=== PATIENT | male | born 1940 | race Caucasian/White ===

== ENCOUNTER → 2021-02-09 08:55 | Outpatient (BNVA) | payer MEDICARE, SELFPAY | PROVIDERS: PCP Nurse Practitioner Family; Visit Provider Nurse Practitioner Family | DX: I10 Essential (primary) hypertension (principal); M25.50 Pain in unspecified joint; G89.29 Other chronic pain; Z79.899 Other long term (current) drug therapy; E55.9 Vitamin D deficiency, unspecified; R07.9 Chest pain, unspecified; M25.512 Pain in left shoulder; M25.551 Pain in right hip; Z13.6 Encounter for screening for cardiovascular disorders; Z12.5 Encounter for screening for malignant neoplasm of prostate | CPT/HCPCS: 71046; 73030; 73502; 80053; 80061; 81003; 82306; 83036; 84443; 84550; 85025; 86038; 86431; G0103 ==

== ENCOUNTER → 2021-02-27 09:19 | Outpatient (BNVA) | payer MEDICARE, SELFPAY | PROVIDERS: PCP Nurse Practitioner Family; Visit Provider Nurse Practitioner Family | DX: I48.92 Unspecified atrial flutter (principal); F17.200 Nicotine dependence, unspecified, uncomplicated; J44.9 Chronic obstructive pulmonary disease, unspecified | CPT/HCPCS: 71046; 80053; 83735; 83880; 84145; 85025 ==

== ENCOUNTER → 2021-03-06 10:49 | Outpatient (BNVA) | payer MEDICARE, SELFPAY | PROVIDERS: PCP Nurse Practitioner Family; Visit Provider Nurse Practitioner Family | DX: I50.9 Heart failure, unspecified (principal); I10 Essential (primary) hypertension; K04.7 Periapical abscess without sinus; K08.89 Other specified disorders of teeth and supporting structures | CPT/HCPCS: 80053; 83880 ==

== ENCOUNTER → 2021-05-18 11:26 | Outpatient (BNVA) | payer MEDICARE, SELFPAY | PROVIDERS: PCP Nurse Practitioner Family; Visit Provider Nurse Practitioner Family | DX: C34.90 Malignant neoplasm of unspecified part of unspecified bronchus or lung (principal) | CPT/HCPCS: 80053 ==

== ENCOUNTER 2021-07-10 00:13 | Emergency (ER) | payer MEDICARE, SELFPAY ==
[2021-07-10 00:16] VITALS: BP 145/96; PULSE 82; RESP 20; O2SAT 93; BMI 25.8
--- NOTE | 2021-07-10 00:24 | XRR_ITS ---
PROCEDURE INFORMATION: Exam: XR Chest Exam date and time: 07/10/2021 12:24 AM Age: 81 years old Clinical indication: Pain; Chest pressure; Additional info: Cp TECHNIQUE: Imaging protocol: XR of the chest. Views: 1 view. COMPARISON: CR XR chest 2V* [id number] 02/27/2021 9:36 AM FINDINGS: Lungs: There is fullness seen within the right suprahilar and infrahilar regions appearing new compared with 02/27/2021. Pleural spaces: Pleural thickening or fluid is seen within the right hemithorax laterally as well as within the minor fissure. Heart/Mediastinum: Unremarkable. No cardiomegaly. Vasculature: A stent is present within the aortic arch and proximal descending thoracic aorta. Bones/joints: Unremarkable. XR/XR chest 1V portable [id number] IMPRESSION: 1. There is fullness seen within the suprahilar and infrahilar regions on the right appearing new compared with 02/27/2021. 2. Pleural thickening or fluid is seen tracking along the right lateral chest wall and within the minor fissure. Radiation Dose CTDIVOL = (mGy): DLP = (mGy-cm)
--- NOTE | 2021-07-10 00:25 | W.ED.CHESTPA ---
HPI - Chest Pain General: Chief Complaint: Chest Pain Stated Complaint: CP Time Seen by Provider: 07/10/21 00:15 Source: patient and EMS Mode of arrival: EMS Limitations: no limitations History of Present Illness: HPI narrative: States has been having chest pain for months states the pain has worsened over the last 2 days. States having a sharp pain today in his chest he did take a [place] before EMS arrival states he is currently pain-free. Had some dyspnea. He does have a history of lung cancer that is in remission. He denies any vomiting or diarrhea. Denies any worsening factors. Associated symptoms: Deny abdominal pain, dyspnea, fever(s), nausea or vomiting Review of Systems Const: Denies: fever(s), chills, body aches or change in appetite Eyes: Denies: blurry vision or eye discomfort ENMT: Denies: throat pain or dental pain Card: Reports: chest pain Resp: Denies: dyspnea GI: Denies: abdominal pain, nausea, vomiting or diarrhea : Denies: dysuria Musc: Denies: neck pain or back pain Skin/Breast: Denies: rash Neuro: Denies: headache(s) Psych: Denies: depression Mart/Lymph: Denies: easy bruising All/Imm: Denies: urticaria PFSH ED PFSH: Medical History Atrial flutter Back pain Chronic joint pain COPD (chronic obstructive pulmonary disease) Dental infection Hypertension Hypertension screen Left shoulder pain Lipoma of forearm Lung cancer Medication management Prostate cancer screening Right hip pain Right-sided chest pain RLL pneumonia Toothache Vitamin D deficiency Surgical History Previous back surgery Social History Smoking and tobacco status: current every day smoker Quit status (tobacco): considering quitting Alcohol intake: never Physical Exam Const: COMMON NORMALS: no acute distress, patient oriented x3 and healthy appearing HENMT: COMMON NORMALS: normocephalic and atraumatic HEAD & SCALP: normocephalic and atraumatic Eye: COMMON NORMALS: Equal, round and reactive pupils present and EOMs intact bilaterally PUPIL: Yes Equal, round and reactive pupils present Neck/C-Spine: COMMON NORMALS: full ROM and supple Chest: COMMONS NORMALS: normal inspection of the chest and normal palpation of entire chest wall Resp: COMMON NORMALS: normal respiratory effort, No retractions, No use of accessory muscles and clear to auscultation bilaterally AUSCULTATION: clear to auscultation bilaterally Cardio: COMMON NORMALS: regular rate, regular rhythm and No murmurs present (Cardio) RATE: regular rate RHYTHM: regular rhythm GI: COMMON NORMALS: Normal to inspection, nondistended, normoactive bowel sounds present, Soft to palpation, non-tender and no masses PALPATION: Yes Soft to palpation Extremity: COMMON NORMALS: normal to inspection and full ROM Neuro: COMMON NORMALS: patient oriented x3, moves all extremities and no focal motor deficits Psych: COMMON NORMALS: mental status grossly normal, Normal thought process present and cooperative THOUGHT PROCESS: Normal thought process present Skin: COMMON NORMALS: no rashes or lesions noted and no wounds GENERAL SKIN EXAM: no rashes or lesions noted Course Vital Signs: Vital signs: Vital Signs Pulse Rate 74 07/10/21 03:59 Respiratory Rate 12 07/10/21 03:59 Blood Pressure 135/83 07/10/21 03:59 Pulse Oximetry 97 07/10/21 03:59 MDM - Chest Pain MDM Narrative: Medical decision making narrative: Patient presents with chest pain. He was found to have anemia along with increasing lung mass. I did speak to patient and strongly recommended admission. He refused states that he does not want any further treatment would just like to go home. I did recommend rectal exam to make sure he does have a GI bleed which she refused as well as stating that he just wants to go home. He has medical decision made capacity patient did sign out AMA understands the risks he is return if he changes his mind. Lab Data: Labs: Lab Results 07/10/21 07/10/21 07/10/21 00:33 00:33 00:33 WBC 5.7 10^3/uL 10^3/ uL (4.0-10.0) RBC 3.27 10^6/uL L 10 ^6/uL (4.1-5.3) Hgb 7.8 g/dL L g/dL (11.7-16.6) Hct 26.0 % L % (42.0-52.0) MCV 79.5 fl L fl (80-94) MCH 23.9 pg L pg (28.0-34.0) MCHC 30.0 g/dL g/dL (30.0-36.0) RDW 18.9 % H % (12.1-15.1) Plt Count 231 10^3/cmm 10^3 /cmm (130-400) MPV 11.7 fL H fL (7.4-10.4) Neut % (Auto) 58.5 % % Lymph % (Auto) 18.0 % % [place] % (Auto) 17.7 % % Eos % (Auto) 4.6 % % Baso % (Auto) 0.7 % % Neut # (Auto) 3.31 10^3/uL 10^3 /uL (1.8-7.7) Lymph # (Auto) 1.0 10^3/uL 10^3/ uL (0.8-4.8) [place] # (Auto) 1.0 10^3/uL H 10^ 3/uL (0.2-0.9) Eos # (Auto) 0.3 10^3/uL 10^3/ uL (0.0-0.8) Baso # (Auto) 0.0 10^3/uL 10^3/ uL (0.0-0.1) Nucleated RBC % (a uto) 0.9 % % Nucleated RBCs # 0.1 /100WBC /100W BC PT 19.80 SECONDS H S ECONDS (12.1-14.9) INR 1.63 H (0.8-1.2) Sodium 142 mmol/L mmol/L (136-145) Potassium 3.9 mmol/L mmol/L (3.5-5.1) Chloride 99 mmol/L mmol/L (98-107) Carbon Dioxide 33 mmol/L H mmol/ L (22-29) Anion Gap 13.9 (5-19) BUN 38 mg/dL H mg/dL (8-23) Creatinine 1.1 mg/dL mg/dL (0.7-1.2) GFR Calculation Not Reportable Glucose 90 mg/dL mg/dL (65-115) Calculated Osmolal ity 303 mOsm/kg H mOs m/kg (285-295) Calcium 8.0 mg/dL L mg/dL (8.5-10.5) Total Bilirubin 0.8 mg/dL mg/dL (0.15-1.2) AST 55 U/L H U/L (0-40) ALT 42 U/L H U/L (0-41) Alkaline Phosphata se 166 IU/L H IU/L (40-130) Troponin T Baselin e Troponin T 120 Min [place] Troponin T Total Protein 6.8 g/dL g/dL (6.6-8.7) Albumin 3.1 g/dL L g/dL (3.5-5.2) Globulin 3.7 g/dL g/dL (1.3-4.6) 07/10/21 07/10/21 00:33 02:34 WBC RBC Hgb Hct MCV MCH MCHC RDW Plt Count MPV Neut % (Auto) Lymph % (Auto) [place] % (Auto) Eos % (Auto) Baso % (Auto) Neut # (Auto) Lymph # (Auto) [place] # (Auto) Eos # (Auto) Baso # (Auto) Nucleated RBC % (a uto) Nucleated RBCs # PT INR Sodium Potassium Chloride Carbon Dioxide Anion Gap BUN Creatinine GFR Calculation Glucose Calculated Osmolal ity Calcium Total Bilirubin AST ALT Alkaline Phosphata se Troponin T Baselin e 54 ng/L H ng/L (0-15) Troponin T 120 Min [place] 52.41 ng/L H ng/L (0-15) Delta Troponin T -1.59 ABS# L ABS# (0-10) Total Protein Albumin Globulin EKG Data^: EKG 1: Attestation: I personally reviewed and interpreted this EKG as follows: EKG interpretation date: 07/10/21 EKG interpretation time: 00:19 Interpretation: atrial fluttter hr [address] elevationqrs 110 qtc 448 EKG 2: Attestation: I personally reviewed and interpreted this EKG as follows: EKG interpretation date: 07/10/21 EKG interpretation time: 02:31 Interpretation: atrial flutter hr [address] or t wave abnormalities qrs 97 qtc 428 Discharge Plan Discharge Patient Disposition: Left Against Medical Advice Clinical Impression: Lung cancer, Chest pain Condition: Stable Prescriptions: No Action albuterol sulfate 90 mcg/actuation HFA aerosol inhaler 2 puff inhalation Q6H PRNRF: 0 Eliquis 5 mg tablet 5 mg PO BID RF: 0 gabapentin 400 mg capsule 400 mg PO BID RF: 0 metoprolol succinate 200 mg capsule,sprinkle,ER 24hr 200 mg PO DAILY RF: 0 mirtazapine 15 mg tablet 15 mg PO DAILY RF: 0 Narcan 4 mg/actuation spray,non-aerosol 4 mg intranasal Q3M PRNRF: 0 oxycodone-acetaminophen 10-325 mg tablet 1 tab PO Q4H PRNRF: 0 potassium chloride 20 mEq/15 mL liquid 20 meq PO DAILY RF: 0 Breo Ellipta 100-25 mcg/dose blister with device inhalation RF: 0 betamethasone acet,sod phos 6 mg/mL suspension 6 mg IM ONCE Qty: 1 RF: 0 furosemide 40 mg tablet 40 mg PO BID 30 Days Qty: 60 RF: 0 potassium chloride [Klor-Con M20] 20 mEq tablet,ER particles/crystals 20 meq PO Q12H 30 Days Qty: 60 RF: 0 diltiazem HCl [Cardizem] 30 mg tablet 30 mg PO QID 30 Days Qty: 120 RF: 0 doxycycline hyclate 100 mg tablet 100 mg PO BID RF: 0 lisinopril 10 mg tablet 10 mg PO DAILY Qty: 30 RF: 0 tramadol 50 mg tablet 50 mg PO BID PRN (Reason: pain) 10 Days Qty: 20 RF: 0 Discharge Orders: Discharge ED (Routine); Ordered 07/10/21 Ordered By: Miranda Wilson Referrals: NEDRA Rivero, [employer] WORKER [Primary Care Provider] - Discharge Diet: Advance as tolerated Discharge Activity: Resume usual activity Patient Instructions: Chest Pain (ED) Coding Level of Care Code ED Furniture Associate for Chg Fwd Exam Comprehensive
[2021-07-10 00:52] LABS: Basophils % 0.7 %; Eosinophils # 0.3 10^3/uL (0.0-0.8); Eosinophils % 4.6 %; Hemoglobin 7.8 g/dL (11.7-16.6); Mean Corpuscular Hemoglobin 23.9 pg (28.0-34.0); Mean Corpuscular Volume 79.5 fl (80-94); Mean Platelet Volume 11.7 fL (7.4-10.4); Monocytes % 17.7 %; Neutrophils # 3.31 10^3/uL (1.8-7.7); Neutrophils % 58.5 %; Nucleated Red Blood Cells # 0.1 /100WBC; Nucleated Red Blood Cells % 0.9 %; Platelet Count 231 10^3/cmm (130-400); Red Blood Count 3.27 10^6/uL (4.1-5.3); Red Cell Distribution Width 18.9 % (12.1-15.1); White Blood Count 5.7 10^3/uL (4.0-10.0)
[2021-07-10 01:12] LABS: INR 1.63 (0.8-1.2)
[2021-07-10 01:17] LABS: Alanine Aminotransferase 42 U/L (0-41); Albumin Level 3.1 g/dL (3.5-5.2); Alkaline Phosphatase 166 IU/L (40-130); Anion Gap 13.9 (5-19); Blood Urea Nitrogen 38 mg/dL (8-23); Carbon Dioxide 33 mmol/L (22-29); Chloride 99 mmol/L (98-107); Creatinine Clr Calc Pharmacy 56.9579; Globulin 3.7 g/dL (1.3-4.6); Glucose 90 mg/dL (65-115); Osmolality Calculated 303 mOsm/kg (285-295); Potassium 3.9 mmol/L (3.5-5.1); Sodium 142 mmol/L (136-145); Total Bilirubin 0.8 mg/dL (0.15-1.2); Total Protein 6.8 g/dL (6.6-8.7); Troponin(5th) Baseline 54 ng/L (0-15)
[2021-07-10 01:18] LABS: Aspartate Amino Transferase 55 U/L (0-40)
--- NOTE | 2021-07-10 01:26 | CTR_ITS ---
PROCEDURE INFORMATION: Exam: CTA Chest With Contrast Exam date and time: 07/10/2021 1:26 AM Age: 81 years old Clinical indication: Chest wall pain; Additional info: Cp TECHNIQUE: Imaging protocol: Computed tomographic angiography of the chest with contrast. 3D rendering (Not supervised by radiologist): MIP and/or 3D reconstructed images were created by the technologist. Radiation optimization: All CT scans at this facility use at least one of these dose optimization techniques: automated exposure control; mA and/or kV adjustment per patient size (includes targeted exams where dose is matched to clinical indication); or iterative reconstruction. Contrast material: OMNI 350; Contrast volume: 95 ml; Contrast route: INTRAVENOUS (IV); COMPARISON: CT chest w con* [id number] 12/10/2018 10:49 AM RADIATION DOSE METRICS: Total DLP (mGy-cm): 598.13 FINDINGS: Pulmonary arteries: There is a filamentous hypoattenuation filling defect seen within the right lower lobe main pulmonary artery compatible with a nonocclusive pulmonary embolism. Aorta: A stent is present within the aortic arch and proximal descending thoracic aorta. 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 Veins: There is reflux of contrast into the inferior vena cava and right posterior hepatic vein. Lungs: There is an irregular spiculated appearing mass seen in the right lower lobe posteriorly measuring approximately 3.7 cm craniocaudal dimension by 3.7 cm AP dimension by 6.4 cm transverse dimension in the right lower lobe posteriorly, findings that appear more prominent today compared with 12/10/2018. Additionally, there is a somewhat spiculated right suprahilar soft tissue mass present surrounding the right upper lobe bronchovascular markings. This finding appears more prominent as well. There are increased septal markings seen in the lung bases bilaterally possibly representing pulmonary edema. Pleural spaces: There is a mildly loculated appearing right pleural effusion seen posteriorly and extending within the major fissure. Heart: Calcifications are seen in the coronary arteries. Lymph nodes: Unremarkable. No enlarged lymph nodes. Liver: There is a nodular contour of the liver compatible with cirrhosis. Intraperitoneal space: A small volume of ascites is seen. Bones/joints: See Aorta finding. Soft tissues: Unremarkable. CT/CT angio chest [id number] IMPRESSION: 1. Nonocclusive embolism seen within the right lower lobe pulmonary artery. 2. Enlarging spiculated right lower lobe pulmonary mass measuring 3.7 x 3.7 x 6.4 cm today. 3. Enlarging suprahilar mass surrounding the right upper lobe bronchovascular structures. 4. Loculated appearing right pleural effusion extending into the major fissure. 5. A stent is present within the aortic arch and proximal descending thoracic aorta. 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 There is no evidence for dissection or extravasation. 6. There is mild reflux of contrast into the inferior vena cava and the posterior right hepatic vein and some increased septal markings are seen in the lower hemithoraces, findings that may represent pulmonary edema. Radiation Dose CTDIVOL = (mGy): DLP = 598.13 (mGy-cm)
[2021-07-10] MEDS: iohexol 350 mg/mL 100 mL Btl IV (01:53)
[2021-07-10 03:02] LABS: Troponin 5 2HR 52.41 ng/L (0-15)
[2021-07-10 03:06] LABS: Troponin 5 2HR Delta -1.59 ABS# (0-10)
--- NOTE | 2021-07-10 03:50 | PC.NURSE ---
this nurse spoke to pt about staying for treatment. pt states continuously hes cold, even though he is covered in 6 blankets, and he is ready to go home. this nurse called and spoke to pt brother anjali martínez who told me to call his son. his sons answered and she states he has dementia and he has refused to go to the hospital all week. I told her that no one has signed a PHI form and so I can't release any information but highly reccomend seeing his physician to discuss results by the end of the week.
[2021-07-10 03:59] VITALS: BP 135/83; PULSE 74; RESP 12; O2SAT 97
--- NOTE | 2021-07-10 06:24 | ECG_ITS ---
[facility] Test Date: 2021-07-10 Pat Name: Tyree Lemon Department: Room: Gender: Male Freight Caller: : [phone] Requested By: Miranda Wilson Order Number: [id number] Reading MD: JUAN PERALTA Measurements Intervals [place] Rate: 74 P: MA: QRS: 75 QRSD: 97 T: 195 QT: 400 QTc: 446 Interpretive Statements ATRIAL FLUTTER/TACHYCARDIA INDETERMINATE AXIS INCOMPLETE RIGHT BUNDLE BRANCH BLOCK [90+ ms QRS DURATION, TERMINAL R IN V1/V2, 40+ ms S IN I/aVL/V4/V5/V6] NONSPECIFIC T-WAVE ABNORMALITY No previous ECG available for comparison Electronically Signed On 07-10-2021 22:58:30 CDT by JUAN PERALTA [id number]
== END 2021-07-10 04:06 | disposition left against medical advice (07) ==
PROVIDERS: Emergency Provider Emergency Medicine; PCP Nurse Practitioner Family
DX: R07.9 Chest pain, unspecified (principal); C34.90 Malignant neoplasm of unspecified part of unspecified bronchus or lung; Z53.21 Procedure and treatment not carried out due to patient leaving prior to being seen by health care provider; Z79.01 Long term (current) use of anticoagulants; J44.9 Chronic obstructive pulmonary disease, unspecified; I10 Essential (primary) hypertension; F17.210 Nicotine dependence, cigarettes, uncomplicated
CPT/HCPCS: 71045; 71275; 80053; 84484; 85025; 85610; 93005; 99283; Q9967

== ENCOUNTER 2021-08-04 11:52 | Inpatient (IN) | payer MEDICARE, SELFPAY ==
[2021-08-04] VITALS (35 sets, daily range): BP systolic 72–168; BP diastolic 52–104; PULSE 0–90; RESP 15–35; TEMP 33.2–35.9; O2SAT 95–100; BMI 33.0; BMI 25.2
[2021-08-04] MEDS: dextrose 50% syringe 50 mL IVP (11:53)
--- NOTE | 2021-08-04 11:55 | PC.NURSE ---
Pt placed on external pacing at 72 MA capture with a rate of 70bpm.
--- NOTE | 2021-08-04 11:55 | PC.NURSE ---
pt placed on continuous spo2, nibp, and cm monitoring.
[2021-08-04] MEDS: vecuronium 10 mg SDV 20 MG IVP (12:07)
--- NOTE | 2021-08-04 12:10 | CTR_ITS ---
PROCEDURE INFORMATION: Exam: CT Head Without Contrast Exam date and time: 08/04/2021 12:10 PM Age: 81 years old Clinical indication: Coma or unconsciousness; Additional info: Unresponsive TECHNIQUE: Imaging protocol: Computed tomography of the head without contrast. Radiation optimization: All CT scans at this facility use at least one of these dose optimization techniques: automated exposure control; mA and/or kV adjustment per patient size (includes targeted exams where dose is matched to clinical indication); or iterative reconstruction. COMPARISON: MRI Cervical Spine w/o* [id number] 12/12/2015 2:38 PM RADIATION DOSE METRICS: Total DLP (mGy-cm): 991.27 FINDINGS: Brain: No hemorrhage. Mild diffuse cerebral atrophy and sequela of chronic small vessel ischemic disease. Focal encephalomalacia within the white matter of the right parietal lobe with corresponding ex vacuo dilation of the right lateral ventricle. No mass effect. Cerebral ventricles: No ventriculomegaly. Paranasal sinuses: Visualized sinuses are unremarkable. No fluid levels. Mastoid air cells: Visualized mastoid air cells are well aerated. Bones/joints: Unremarkable. No acute fracture. Soft tissues: Unremarkable. CT/CT head wo con* [id number] IMPRESSION: 1. No acute intracranial abnormality. 2. 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 Radiation Dose CTDIVOL = (mGy): DLP = 991.27 (mGy-cm)
--- NOTE | 2021-08-04 12:10 | CTR_ITS ---
PROCEDURE INFORMATION: Exam: CT Cervical Spine Without Contrast Exam date and time: 08/04/2021 12:10 PM Age: 81 years old Clinical indication: Other: Unresponsive TECHNIQUE: Imaging protocol: Computed tomography images of the cervical spine without contrast. Radiation optimization: All CT scans at this facility use at least one of these dose optimization techniques: automated exposure control; mA and/or kV adjustment per patient size (includes targeted exams where dose is matched to clinical indication); or iterative reconstruction. COMPARISON: MRI Cervical Spine w/o* [id number] 12/12/2015 2:38 PM RADIATION DOSE METRICS: Total DLP (mGy-cm): 710.85 FINDINGS: Bones/joints: No acute fracture. Normal alignment. Discs/Spinal canal/Neural foramina: No significant disc protrusion. No severe spinal canal stenosis. No significant neural foraminal narrowing. Lungs: Lung apices are normal. Soft tissues: Unremarkable. CT/CT cervical spin wo con* [id number] IMPRESSION: No acute findings. Radiation Dose CTDIVOL = (mGy): DLP = 710.85 (mGy-cm)
--- NOTE | 2021-08-04 12:10 | CTR_ITS ---
PROCEDURE INFORMATION: Exam: CTA Chest With Contrast Exam date and time: 08/04/2021 12:10 PM Age: 81 years old Clinical indication: Other: Found unresponsive; Prior surgery TECHNIQUE: Imaging protocol: Computed tomographic angiography of the chest with contrast. 3D rendering (Not supervised by radiologist): MIP and/or 3D reconstructed images were created by the technologist. Total images: 1210 Radiation optimization: All CT scans at this facility use at least one of these dose optimization techniques: automated exposure control; mA and/or kV adjustment per patient size (includes targeted exams where dose is matched to clinical indication); or iterative reconstruction. Contrast material: VISI; Contrast volume: 92 ml; Contrast route: INTRAVENOUS (IV); COMPARISON: CT angio chest [id number] 07/10/2021 1:51 AM RADIATION DOSE METRICS: Total DLP (mGy-cm): 7.89 FINDINGS: Tubes, catheters and devices: Endotracheal tube tip in satisfactory position above the sri. Nasogastric tube tip below the diaphragm the level of proximal gastric antrum. Pulmonary arteries: No visible evidence of pulmonary embolism/pulmonary arterial thrombus. Resolution of the pulmonary embolism of 07/10/2021. 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 Thoracic aortic stent again in place beginning at the mid aortic arch and extending into the distal thoracic aorta terminating at the T8 level. No change since 07/10/2021. Arteriosclerosis. Trachea: Small amount of retained mucus upper trachea just below the larynx. No associated airway obstruction. Lungs: Again note of a right suprahilar spiculated mass with concern for lung carcinoma. Segmental volume consolidated alveolar airspace disease right lower lobe which could reflect pneumonia and or atelectasis period and underlying lung carcinoma most certainly could be present. Volume loss left lower lobe with associated ground-glass interstitial lung disease and early consolidated alveolar airspace disease of suspected active pneumonitis/pneumonia. Evidence of COPD/chronic bronchitis. Again note of 2 right middle lobe pulmonary nodules 1 subpleural along the minor fissure measuring 8 mm and the 2nd subpleural lateral segment right middle lobe measuring 8 mm also. Pleural spaces: Scant right pleural effusion. Volume slightly decreased since study of 07/10/2021. No visible left pleural effusion of significant volume. Heart: Cardiomegaly. No visible pericardial effusion. Advanced 3 vessel coronary artery disease. Reflux of contrast into the inferior vena cava consistent or right-sided heart failure. Lymph nodes: Stable prominent mediastinal and hilar lymph nodes. Bones/joints: No visible active or acute osseous pathology. Osteopenia. Soft tissues: Unremarkable for age. Other findings: Increased quantum mottle artifact which degrades image quality and detail assessment. IMPRESSION: 1. No visible evidence of pulmonary embolism/pulmonary arterial thrombus. 2. Again note of a right suprahilar spiculated mass with concern for lung carcinoma. 3. Segmental volume consolidated alveolar airspace disease right lower lobe which could reflect pneumonia and or atelectasis period and underlying lung carcinoma most certainly could be present. 4. Volume loss left lower lobe with associated ground-glass interstitial lung disease and early consolidated alveolar airspace disease of suspected active pneumonitis/pneumonia. 5. Evidence of COPD/chronic bronchitis. 6. Again note of 2 right middle lobe pulmonary nodules. 7. Scant right pleural effusion. 8. Other nonurgent, nonemergent, chronic, and age related findings as detailed in text above. PROCEDURE INFORMATION: Exam: CT Abdomen And Pelvis With Contrast Exam date and time: 08/04/2021 12:10 PM Age: 81 years old Clinical indication: Other: Found unresponsive; Prior surgery TECHNIQUE: Imaging protocol: Computed tomography of the abdomen and pelvis with contrast. Radiation optimization: All CT scans at this facility use at least one of these dose optimization techniques: automated exposure control; mA and/or kV adjustment per patient size (includes targeted exams where dose is matched to clinical indication); or iterative reconstruction. Contrast material: VISI; Contrast volume: 92 ml; Contrast route: INTRAVENOUS (IV); COMPARISON: CT angio chest [id number] 07/10/2021 1:51 AM RADIATION DOSE METRICS: Total DLP (mGy-cm): 2046.89 FINDINGS: Tubes, catheters and devices: Right common femoral vein catheter. Nasogastric tube tip at the level of the proximal gastric antrum. Liver: Cirrhotic appearing liver. No visible hepatic mass or cystic structure. Gallbladder and bile ducts: Gallbladder is contracted. No visible cholelithiasis. Pancreas: Pancreas is unremarkable for age. No visible pancreatic ductal ectasia. Spleen: Spleen unremarkable. Adrenal glands: Adrenal glands unremarkable. Kidneys and ureters: No hydronephrosis or perinephric fluid. Small focus of nonobstructing calyceal nephrolithiasis inferior pole right kidney measuring 3 mm. Mildly atrophic right kidney. No visible nephrolithiasis left kidney. No grossly visible renal mass. Renal arteriosclerosis. Stomach and bowel: Evidence of moderate diffuse mucosal thickening of the colon consistent with either active inflammatory or infectious colitis. Diverticulosis coli without visible evidence for acute diverticulitis. Nonobstructive bowel pattern. No visible significant adynamic or reactive ileus. Appendix: The appendix is visualized and appears noninflamed. Intraperitoneal space: Small volume intraperitoneal ascites. No visible pneumoperitoneum. Vasculature: Mild fusiform aneurysmal dilatation of the infrarenal abdominal aorta measuring a maximum AP diameter 39 mm. No intimal flap or dissection. Moderately advanced arterial sclerotic disease. Tortuous abdominal aorta often seen in hypertensive cardiovascular disease. No aneurysmal dilatation of the iliac arteries. Extensive arterial sclerotic disease of the iliac arteries. Lymph nodes: Unremarkable. No visible enlarged lymph nodes. Urinary bladder: Davis catheter within a partially decompressed urinary bladder. Reproductive: Prostate hypertrophy. Bones/joints: No visible active or acute osseous pathology. Degenerative disease and degenerative disc disease the lumbosacral spine most severe L4/L5 with disc space height loss and ankylosis. Spondylosis deformans. Scoliosis. Soft tissues: Unremarkable. Other findings: Increased quantum mottle artifact which degrades image quality and detail assessment. CT/CT angio chest w abd pel w con IMPRESSION: 1. Evidence of moderate diffuse mucosal thickening of the colon consistent with either active inflammatory or infectious colitis. 2. Diverticulosis coli without visible evidence for acute diverticulitis. 3. Cirrhosis of the liver. 4. Small volume intraperitoneal ascites. 5. Other nonurgent, nonemergent, chronic, and age related findings as detailed in text above. COMMENTS: Consistent with the [employer]'s Incidental Findings Committee white paper (J Am Puma Radiol 2018): Any incidental renal lesion less than 1 cm or classified as too small to characterize, or any incidental cystic renal lesion characterized as simple-appearing, is likely benign. No follow-up imaging is recommended for these lesions per consensus recommendations based on imaging criteria. Radiation Dose CTDIVOL = (mGy): DLP = 2047.89~2047.89 (mGy-cm)
--- NOTE | 2021-08-04 12:11 | XRR_ITS ---
PROCEDURE INFORMATION: Exam: XR Chest Exam date and time: 08/04/2021 12:11 PM Age: 81 years old Clinical indication: Device placement; Ett placement (vent status) TECHNIQUE: Imaging protocol: XR of the chest. Views: 1 view. COMPARISON: CR (CHEST, ) 07/10/2021 1:08 AM FINDINGS: Tubes, catheters and devices: Termination of endotracheal tube 8.2 cm above the sri. Lungs: COPD, interstitial disease, and asymmetric bilateral airspace disease (right greater than left). Pleural spaces: Right pleural effusion. Heart/Mediastinum: Cardiomegaly. Vasculature: Aortic stent graft in the enlarged thoracic aorta. Bones/joints: Osteopenia. XR/XR chest 1V portable [id number] IMPRESSION: 1. COPD, interstitial disease, and asymmetric bilateral airspace disease (right greater than left). 2. Right pleural effusion. 3. Termination of endotracheal tube 8.2 cm above the sri. Radiation Dose CTDIVOL = (mGy): DLP = (mGy-cm)
--- NOTE | 2021-08-04 12:11 | ECG_ITS ---
[facility] Test Date: 2021-08-04 Pat Name: Tyree Lemon Department: Room: Gender: Male Shaker Operator: : 1940 Requested By: Lavelle Piña Order Number: [id number] Meagan MD: Brittaney Machuca M.D. Measurements Intervals [place] Rate: 52 P: 52 ME: 284 QRS: -60 QRSD: 126 T: 130 QT: 589 QTc: 550 Interpretive Statements Unspecified irregular rhythm LEFT AXIS DEVIATION [QRS AXIS < -30] MODERATE INTRAVENTRICULAR CONDUCTION DELAY [110+ ms QRS DURATION] NONSPECIFIC T-WAVE ABNORMALITY Baseline artifact CRITICAL TEST RESULT Compared to ECG 07/10/2021 02:31:46 Left-axis deviation now present Intraventricular conduction delay now present Atrial flutter no longer present T-wave abnormality still present Electronically Signed On 08-05-2021 13:18:32 TWISTER DOFFER by Brittaney Machuca M.D. [id number]
--- NOTE | 2021-08-04 12:15 | ED_ITS ---
HPI - Altered Mental Status General: Chief Complaint: Altered Mental Status Stated Complaint: RESP DISTRESS; HYPOGLYCEMIA Time Seen by Provider: 08/04/21 12:09 History of Present Illness: HPI narrative: 81-year-old male with history of a flutter on Eliquis presents due to altered mental status. EMS was called home due to patient being more confused past 24 hours. They found he had blood sugar 13. Dextrose provided. Repeat blood sugar was in the 60s. Patient however was noted by EMS to become increasingly bradycardic despite repeated dose of atropine. External pacing initiated. Remainder of history is limited due to patient's altered mental status. Review of Systems General: Reports: ROS unobtainable due to mental status PFS ED PFSH: Medical History Atrial flutter Back pain Chronic joint pain COPD (chronic obstructive pulmonary disease) Dental infection Hypertension Hypertension screen Left shoulder pain Lipoma of forearm Lung cancer Medication management Prostate cancer screening Right hip pain Right-sided chest pain RLL pneumonia Toothache Vitamin D deficiency Surgical History Previous back surgery Social History Smoking and tobacco status: current every day smoker Quit status (tobacco): considering quitting Alcohol intake: never Physical Exam Narrative: EXAM NARRATIVE: - GENERAL: Alert and oriented x 0. Being paced by EMS. Breathing spontaneously. - EYES: EOMI. Anicteric. - HENT: Atraumatic, no C-spine tenderness. Moist mucous membranes. No scleral icterus. No cervical lymphadenopathy. - LUNGS: Clear to auscultation bilaterally. No accessory muscle use. Equal lung sounds bilaterally. No respiratory distress. - CARDIOVASCULAR: Pacing in progress, regular rate and rhythm. No murmur. - ABDOMEN: Soft, non-tender and non-distended. Negative CVA tenderness bilaterally, no rebound or guarding, negative Bowman sign. No palpable masses. - EXTREMITIES: No edema. Non-tender. - SKIN: No rashes or lesions. Warm. - NEUROLOGIC: GCS of 10, no focal deficit the patient is severely confused - PSYCHIATRIC: Cooperative. Appropriate mood and affect. Procedures Intubation Time out performed: Yes sedative: Etomidate Mg Given: 20 paralytic: Vecuronium Mg Given: 20 Laryngoscope: fiber optic video scope ET Tube Size: 7.5 ET Tube Uncuffed: Yes Tube Secured Depth (cm): 23 Tube Secured Location: lips Tube Placement Confirmation: visualized tube passing through cords, equal breath sounds bilaterally and no breath sounds over epigastrium Patient Tolerated Procedure: well Intubation Complications: none Course Vital Signs: Vital signs: Vital Signs Temperature 91.8 F L 08/04/21 12:49 Pulse Rate 80 08/04/21 11:55 Respiratory Rate 16 08/04/21 12:21 Blood Pressure 72/52 08/04/21 11:55 Pulse Oximetry 96 08/04/21 11:55 MDM - Altered Mental Status MDM Narrative: Medical decision making narrative: 81-year-old male presented by EMS due to altered mental status. Initially had low blood sugar. However this improved with ministration of dextrose. He continues to be altered and has spontaneous respirations. Required emergent intubation due to failure to protect his airway. Following intubation oxygen saturation was in 90s. Patient was hypotensive despite 1500 cc fluids by EMS and Levophed drip was started. EKG reveals sinus bradycardia and arrhythmia. Troponin is elevated to 120 but there is also creatinine elevation 2.7. Discussed with cardiology, who at this time does not recommend starting heparin and recommends waiting for scan results first. CT scan of the head C-spine chest abdomen pelvis ordered. In addition there is hyperkalemia with potassium of 7. Calcium and insulin drip ordered. Nephrology consulted. At this time to recommend emergent hemodialysis. Surgery contacted and will place Vas-Cath. White count is also elevated at 17. Sepsis order set initiated. Remainder of lab work and imaging reviewed. Discussed with hospitalist and they agreed patient would benefit from admission to the ICU. Patient admitted in critical condition. Further evaluation management per hospitalist team. Lab Data: Labs: Lab Results 08/04/21 08/04/21 08/04/21 12:15 12:15 12:15 WBC 17.7 10^3/uL H 10 ^3/uL (4.0-10.0) RBC 3.43 10^6/uL L 10 ^6/uL (4.1-5.3) Hgb 7.7 g/dL L g/dL (11.7-16.6) Hct 29.8 % L % (42.0-52.0) MCV 86.9 fl fl (80-94) MCH 22.4 pg L pg (28.0-34.0) MCHC 25.8 g/dL L g/dL (30.0-36.0) RDW 20.8 % H % (12.1-15.1) Plt Count 262 10^3/cmm 10^3 /cmm (130-400) MPV 11.5 fL H fL (7.4-10.4) Neut % (Auto) 83.2 % % Lymph % (Auto) 2.8 % % [place] % (Auto) 13.2 % % Eos % (Auto) 0.0 % % Baso % (Auto) 0.1 % % Neut # (Auto) 14.70 10^3/uL H 1 0^3/uL (1.8-7.7) Lymph # (Auto) 0.5 10^3/uL L 10^ 3/uL (0.8-4.8) [place] # (Auto) 2.3 10^3/uL H 10^ 3/uL (0.2-0.9) Eos # (Auto) 0.0 10^3/uL 10^3/ uL (0.0-0.8) Baso # (Auto) 0.0 10^3/uL 10^3/ uL (0.0-0.1) Nucleated RBC % (a uto) 0.5 % % Nucleated RBCs # 0.1 /100WBC /100W BC PT 31.90 SECONDS H S ECONDS (12.1-14.9) INR 3.04 H (0.8-1.2) APTT 47.3 SECONDS H SE CONDS (23.9-36.7) Specimen Type Sample Site ABG pH ABG pCO2 ABG pO2 ABG HCO3 ABG O2 Saturation ABG Base Excess Ervin Test A-a O2 Gradient Hematocrit Hgb O2 Saturation Carboxyhemoglobin Methemoglobin Total Hemoglobin Ionized Calcium O2 Delivery Device FiO2 Tidal Volume PEEP Outreach Assistant ID Sodium 134 mmol/L L mmol /L (136-145) Potassium 7.0 mmol/L H* mmo l/L (3.5-5.1) Chloride 92 mmol/L L mmol/ L (98-107) Carbon Dioxide 16 mmol/L L mmol/ L (22-29) Anion Gap 33.0 H (5-19) BUN 55 mg/dL H mg/dL (8-23) Creatinine 2.7 mg/dL H mg/dL (0.7-1.2) GFR Calculation Not Reportable Glucose 120 mg/dL H mg/dL (65-115) Calculated Osmolal ity 294 mOsm/kg mOsm/ kg (285-295) Lactate Calcium 8.2 mg/dL L mg/dL (8.5-10.5) Magnesium 2.5 mg/dL H mg/dL (1.7-2.3) Total Bilirubin 1.6 mg/dL H mg/dL (0.15-1.2) AST 1224 U/L H U/L (0-40) ALT 533 U/L H U/L (0-41) Alkaline Phosphata se 162 IU/L H IU/L (40-130) Creatine Kinase 54 U/L U/L (39-308) Troponin T Baselin e NT-Pro-B Natriuret Pep 9029 pg/mL H pg/m L (0-450) Total Protein 7.1 g/dL g/dL (6.6-8.7) Albumin 3.3 g/dL L g/dL (3.5-5.2) Globulin 3.8 g/dL g/dL (1.3-4.6) Lipase 16 U/L U/L (13-60) TSH 9.71 uIU/mL H uIU /mL (0.27-4.20) Free T4 0.90 ng/dL ng/dL (0.82-1.77) Salicylates < 0.3 mg/dL L mg/ dL (3-10) Urine Opiates Scre en Acetaminophen < 5.0 ug/mL L ug/ mL (10-30) Ur Barbiturates Sc reen Ur Phencyclidine S crn Ur Amphetamines Sc reen U Benzodiazepines Scrn Urine Cocaine Scre en U Marijuana (THC) Screen Ethyl Alcohol < 10 mg/dL mg/dL (0-10) 08/04/21 08/04/21 08/04/21 12:15 12:15 12:25 WBC RBC Hgb Hct MCV MCH MCHC RDW Plt Count MPV Neut % (Auto) Lymph % (Auto) [place] % (Auto) Eos % (Auto) Baso % (Auto) Neut # (Auto) Lymph # (Auto) [place] # (Auto) Eos # (Auto) Baso # (Auto) Nucleated RBC % (a uto) Nucleated RBCs # PT INR APTT Specimen Type Arterial Sample Site Brachial, right ABG pH 7.06 L* (7.35-7.45) ABG pCO2 44.4 mmHg mmHg (35-45) ABG pO2 167.0 mmHg H mmHg (80.0-100.0) ABG HCO3 12.5 mmol/L L mmo l/L (22-26) ABG O2 Saturation 99.1 ABG Base Excess -16.6 mmol/L L mm ol/L (-2.0-2.0) Ervin Test N/a A-a O2 Gradient 63.9 mmHg H mmHg (5-10) Hematocrit 21.9 % L % (42-52) Hgb O2 Saturation 96.5 % % (95-100) Carboxyhemoglobin 1.9 %THgb %THgb (0.4-20.1) Methemoglobin 0.7 % % (0.4-1.5) Total Hemoglobin 7.1 g/dL L g/dL (14-18) Ionized Calcium 1.0 mmol/L L mmol /L (1.1-1.4) O2 Delivery Device Vent FiO2 100.0 % % Tidal Volume 0.40 PEEP 6.0 cmH20 cmH20 Outreach Assistant ID Gd Sodium 137.0 mmol/L mmol /L (131-143) Potassium 5.7 mmol/L H mmol /L (3.5-5.0) Chloride Carbon Dioxide Anion Gap BUN Creatinine GFR Calculation Glucose 195.0 mg/dL H mg/ dL (70-115) Calculated Osmolal ity Lactate 12.3 mmol/L H* mm ol/L (0.5-2.2) Calcium Magnesium Total Bilirubin AST ALT Alkaline Phosphata se Creatine Kinase Troponin T Baselin e 127 ng/L H* ng/L (0-15) NT-Pro-B Natriuret Pep Total Protein Albumin Globulin Lipase TSH Free T4 Salicylates Urine Opiates Scre en Acetaminophen Ur Barbiturates Sc reen Ur Phencyclidine S crn Ur Amphetamines Sc reen U Benzodiazepines Scrn Urine Cocaine Scre en U Marijuana (THC) Screen Ethyl Alcohol 08/04/21 13:10 WBC RBC Hgb Hct MCV MCH MCHC RDW Plt Count MPV Neut % (Auto) Lymph % (Auto) [place] % (Auto) Eos % (Auto) Baso % (Auto) Neut # (Auto) Lymph # (Auto) [place] # (Auto) Eos # (Auto) Baso # (Auto) Nucleated RBC % (a uto) Nucleated RBCs # PT INR APTT Specimen Type Sample Site ABG pH ABG pCO2 ABG pO2 ABG HCO3 ABG O2 Saturation ABG Base Excess Ervin Test A-a O2 Gradient Hematocrit Hgb O2 Saturation Carboxyhemoglobin Methemoglobin Total Hemoglobin Ionized Calcium O2 Delivery Device FiO2 Tidal Volume PEEP Outreach Assistant ID Sodium Potassium Chloride Carbon Dioxide Anion Gap BUN Creatinine GFR Calculation Glucose Calculated Osmolal ity Lactate Calcium Magnesium Total Bilirubin AST ALT Alkaline Phosphata se Creatine Kinase Troponin T Baselin e NT-Pro-B Natriuret Pep Total Protein Albumin Globulin Lipase TSH Free T4 Salicylates Urine Opiates Scre en Positive ng/mL H ng/mL (Negative) Acetaminophen Ur Barbiturates Sc reen Negative ng/mL ng /mL (Negative) Ur Phencyclidine S crn Negative ng/mL ng /mL (Negative) Ur Amphetamines Sc reen Negative ng/mL ng /mL (Negative) U Benzodiazepines Scrn Positive ng/mL H ng/mL (Negative) Urine Cocaine Scre en Negative ng/mL ng /mL (Negative) U Marijuana (THC) Screen Negative ng/mL ng /mL (Negative) Ethyl Alcohol EKG Data^: EKG 1: Other EKG comments: Sinus bradycardia and irregularity, prolonged QRS, prolonged QT at 569, no sign of acute ischemia or other acute abnormality. Critical Care Time Critical Care Time: Critical Care Time: Yes Total Critical Care Time: 90 Attestation: This case had a high probability of a clinically significant, sudden, or life threatening deterioration of this patient's condition which required my full and direct attention, intervention and personal management. Discharge Plan Discharge Prescriptions: No Action albuterol sulfate 90 mcg/actuation HFA aerosol inhaler 2 puff inhalation Q6H PRNRF: 0 Eliquis 5 mg tablet 5 mg PO BID RF: 0 gabapentin 400 mg capsule 400 mg PO BID RF: 0 metoprolol succinate 200 mg capsule,sprinkle,ER 24hr 200 mg PO DAILY RF: 0 mirtazapine 15 mg tablet 15 mg PO DAILY RF: 0 Narcan 4 mg/actuation spray,non-aerosol 4 mg intranasal Q3M PRNRF: 0 oxycodone-acetaminophen 10-325 mg tablet 1 tab PO Q4H PRNRF: 0 potassium chloride 20 mEq/15 mL liquid 20 meq PO DAILY RF: 0 Breo Ellipta 100-25 mcg/dose blister with device inhalation RF: 0 betamethasone acet,sod phos 6 mg/mL suspension 6 mg IM ONCE Qty: 1 RF: 0 furosemide 40 mg tablet 40 mg PO BID 30 Days Qty: 60 RF: 0 potassium chloride [Klor-Con M20] 20 mEq tablet,ER particles/crystals 20 meq PO Q12H 30 Days Qty: 60 RF: 0 diltiazem HCl [Cardizem] 30 mg tablet 30 mg PO QID 30 Days Qty: 120 RF: 0 doxycycline hyclate 100 mg tablet 100 mg PO BID RF: 0 lisinopril 10 mg tablet 10 mg PO DAILY Qty: 30 RF: 0 tramadol 50 mg tablet 50 mg PO BID PRN (Reason: pain) 10 Days Qty: 20 RF: 0 Coding Level of Care Code ED Negative Checker for Malik Hqa
[2021-08-04] MEDS: sodium chloride 0.9% 1,000 ML 999 ML IV (12:18)
[2021-08-04 12:30] LABS: Basophils % 0.1 %; Hematocrit 29.8 % (42.0-52.0); Hemoglobin 7.7 g/dL (11.7-16.6); Lymphocytes # 0.5 10^3/uL (0.8-4.8); Lymphocytes % 2.8 %; Mean Corpuscular HGB Conc 25.8 g/dL (30.0-36.0); Mean Corpuscular Hemoglobin 22.4 pg (28.0-34.0); Mean Corpuscular Volume 86.9 fl (80-94); Mean Platelet Volume 11.5 fL (7.4-10.4); Monocytes # 2.3 10^3/uL (0.2-0.9); Monocytes % 13.2 %; Neutrophils % 83.2 %; Nucleated Red Blood Cells # 0.1 /100WBC; Nucleated Red Blood Cells % 0.5 %; Platelet Count 262 10^3/cmm (130-400); Red Blood Count 3.43 10^6/uL (4.1-5.3); Red Cell Distribution Width 20.8 % (12.1-15.1); White Blood Count 17.7 10^3/uL (4.0-10.0)
--- NOTE | 2021-08-04 12:30 | PC.NURSE ---
vo from dr. garcia to increase levophed to 20mcg/min until constant bp systolic greater than 100 reached.
--- NOTE | 2021-08-04 12:35 | PC.NURSE ---
julio césar rhoades applied for rectal temp of 91.8
[2021-08-04 12:40] LABS: ABG PCO2 44.4 mmHg (35-45); Alveolar-Arterial Oxygen Gradi 63.9 mmHg (5-10); Arterial Blood Gas Hematocrit 21.9 % (42-52); Base Excess ABG -16.6 mmol/L (-2.0-2.0); Blood Gas Operator Identificat GD; Blood Gas Sample Site Brachial, right; Blood Gas Sample Type Arterial; Carboxyhemoglobin 1.9 %THgb (0.4-20.1); HCO3 ABG 12.5 mmol/L (22-26); HGB O2 Sat 96.5 % (95-100); Methemoglobin 0.7 % (0.4-1.5); Oxygen Device VENT; Oxygen Saturation ABG 99.1; Potassium Level - ABG 5.7 mmol/L (3.5-5.0); Total Hemoglobin 7.1 g/dL (14-18)
[2021-08-04 12:41] LABS: ABG PH Result 7.06 (7.35-7.45)
[2021-08-04 12:44] LABS: INR 3.04 (0.8-1.2)
[2021-08-04 12:45] LABS: Partial Thromboplastin Time 47.3 SECONDS (23.9-36.7)
[2021-08-04 12:55] LABS: Alanine Aminotransferase 533 U/L (0-41); Albumin Level 3.3 g/dL (3.5-5.2); Alkaline Phosphatase 162 IU/L (40-130); Blood Urea Nitrogen 55 mg/dL (8-23); Calcium 8.2 mg/dL (8.5-10.5); Carbon Dioxide 16 mmol/L (22-29); Chloride 92 mmol/L (98-107); Creatine Phosphokinase 54 U/L (39-308); Globulin 3.8 g/dL (1.3-4.6); Glucose 120 mg/dL (65-115); Lipase 16 U/L (13-60); Magnesium 2.5 mg/dL (1.7-2.3); Osmolality Calculated 294 mOsm/kg (285-295); Sodium 134 mmol/L (136-145); Total Bilirubin 1.6 mg/dL (0.15-1.2); Total Protein 7.1 g/dL (6.6-8.7)
[2021-08-04] MEDS: cefepime 2,000 MG in sodium chloride 0.9% (plus) 50 ML 100 MG IV (12:55)
[2021-08-04 13:01] LABS: Acetaminophen < 5.0 ug/mL (10-30); Alcohol Level < 10 mg/dL (0-10); Lactate (Lactic Acid level) 12.3 mmol/L (0.5-2.2); Salicylate < 0.3 mg/dL (3-10); Troponin(5th) Baseline 127 ng/L (0-15)
--- NOTE | 2021-08-04 13:03 | PC.NURSE ---
notified MAC Arvizu
[2021-08-04 13:14] LABS: Aspartate Amino Transferase 1224 U/L (0-40)
[2021-08-04 13:15] LABS: NT Pro B Type Natriuretic Pept 9029 pg/mL (0-450); Thyroid Stimulating Hormone 9.71 uIU/mL (0.27-4.20)
[2021-08-04] MEDS: sodium bicarbonate 50 MEQ in sodium chloride 0.45% 1,000 ML 100 MEQ IV (13:21)
[2021-08-04] MEDS: propofol 1,000 MG/100 ML INJ 3.2 MG (13:24)
[2021-08-04 13:31] LABS: Amphetamines Screen Urine Negative (Negative); Barbiturates Screen Urine Negative (Negative); Benzodiazepines Screen Urine Positive (Negative); Cocaine Screen Urine Negative (Negative); Opiate Screen Urine Positive (Negative); PCP Screen Urine Negative (Negative); THC Screen Urine Negative (Negative)
[2021-08-04] MEDS: calcium gluconate 0.1 gm/mL 10% SDV 10mL 2 GM IVP (13:33)
--- NOTE | 2021-08-04 13:42 | PC.NURSE ---
bgl 148.
[2021-08-04] MEDS: dextrose 5 % 500 ML 100 ML IV (13:49)
--- NOTE | 2021-08-04 13:55 | PM.CONSULT ---
Providers/Reason For Consult Consulting Physician/Specialty*: Nephrology Reason for Consult*: [place] and hyperkalemia Primary Care Provider: MYA Do History of Present Illness History of Present Illness Thanks for consultation. Mr Lemon is an 81 YoM found altered today. EMS initially identified him as severely hypoglycemic, and bradycardic. An external pacer was placed and is now capturing appropriately and providing hemodynamic support. His blood pressure last measured 72/52 with a pulse of 58. Levophed has been prescribed. Initial diagnostics of demonstrated a serum potassium of 7 as well as an ABG which demonstrates pH of 7.06 bicarb down to 12.5. Lactic acid is already available, and this is 12.3. Creatinine is 2.7 mg/dL, Davis catheter placed, minimal urine output. I discussed with the family members. His son and his granddaughter are currently available to speak to. He has had a minor deterioration in renal function in the past, however, last available creatinine is 1.1 mg/dL. He is never seen a fringe knotter, required hemodialysis. No recent new exposure to potentially nephrotoxic substances. He was diagnosed with lung cancer back in 2019, he received both radiation and chemotherapy for this, was considered to be in remission of the 6 months later. On a recent CT scan performed 07/10, it demonstrates an enlarging is spiculated right lower lobe pulmonary mass measuring 3.7 x 6.4 cm. Review of Systems General: Reports: ROS unobtainable due to mental status Meds/Allergies Home Medications and Allergies Home Medications Medication Instructions Recorded Confirmed Last Taken Type albuterol sulfate 90 mcg/actuation 2 puff INHALATION Q6H PRN 01/24/21 03/20/21 Unknown History aerosol inhaler apixaban 5 mg tablet 5 mg PO BID 01/24/21 03/20/21 Unknown History gabapentin 400 mg capsule 400 mg PO BID 01/24/21 03/20/21 Unknown History metoprolol succinate 200 mg 200 mg PO DAILY 01/24/21 03/20/21 Unknown History capsule sprinkle, ext. release 24 hr mirtazapine 15 mg tablet 15 mg PO DAILY 01/24/21 03/20/21 Unknown History naloxone 4 mg/actuation nasal spray 4 mg INTRANASAL Q3M PRN 01/24/21 03/20/21 Unknown History oxycodone-acetaminophen 10 mg-325 1 tab PO Q4H PRN 01/24/21 03/20/21 Unknown History mg tablet potassium chloride 20 mEq/15 mL 20 meq PO DAILY 01/24/21 03/20/21 Unknown History oral liquid fluticasone furoate 100 INHALATION 02/08/21 03/20/21 Unknown History mcg-vilanterol 25 mcg/dose inhalation powder furosemide 40 mg tablet 40 mg PO BID 30 Days #60 tab 03/02/21 03/20/21 Unknown Rx potassium chloride 20 mEq 20 meq PO Q12H 30 Days #60 tab 03/02/21 03/20/21 Unknown Rx tablet,extended release(part/cryst) tramadol 50 mg tablet 50 mg PO BID PRN 10 Days #20 tab 03/06/21 03/20/21 Unknown Rx diltiazem HCl 30 mg tablet 30 mg PO QID 30 Days #120 tab 03/20/21 03/20/21 Unknown Rx doxycycline hyclate 100 mg tablet 100 mg PO BID 03/20/21 03/20/21 Unknown History lisinopril 10 mg tablet 10 mg PO DAILY #30 tab 05/18/21 05/18/21 Unknown Rx Allergies Allergy/AdvReac Type Severity Reaction Status Date / Time No Known Allergies Allergy Verified 03/06/21 09:39 Current Medications Current Medications Generic Name Dose Route Start Last Admin Trade Name Freq PRN Reason Stop Dose Admin Norepinephrine Bitartrate 4 mg 254 mls @ 0 mls/hr 08/04/21 12:30 08/04/21 12:56 / Dextrose IV 18 mcg/min .Q0M BALBIR 68.58 mls/hr Titration Protocol Per Protocol Sodium Bicarbonate 50 meq/ 1,050 mls @ 100 mls/hr 08/04/21 13:00 08/04/21 13:21 Sodium Chloride IV 100 mls/hr .[id number] BALBIR Administration Dextrose 500 mls @ 100 mls/hr 08/04/21 13:02 08/04/21 13:49 D5w IV 100 mls/hr ONCE PRN Administration Adult Acute Hypoglycemia Prot Protocol PFSH Acute PFSH: Medical History Atrial flutter Back pain Chronic joint pain COPD (chronic obstructive pulmonary disease) Dental infection Hypertension Hypertension screen Left shoulder pain Lipoma of forearm Lung cancer Medication management Prostate cancer screening Right hip pain Right-sided chest pain RLL pneumonia Toothache Vitamin D deficiency Surgical History Previous back surgery Social History Smoking and tobacco status: current every day smoker Quit status (tobacco): considering quitting Alcohol intake: never Vitals/I&O/Wt Last Vital Signs Temp 91.8 F L 08/04/21 12:49 Pulse 80 08/04/21 11:55 Resp 16 08/04/21 12:21 BP 72/52 08/04/21 11:55 Pulse Ox 96 08/04/21 11:55 08/03/21 08/04/21 08/04/21 22:59 06:59 14:59 Intake Total 33.655 / 33.655 Balance 33.655 / 33.655 Weight last 48 hrs Weight 104.326 kg Physical Exam Narrative: EXAM NARRATIVE: Constitutional: Sedated and vented HEENT: Wet mucosa, no jvp, non icteric Lungs: Bilaterally clear without discernible wheeze or rales in all lung zones CVS: S1 S2, no murmurs Abdo: Soft, BS ok Ext 4: 2-3+ edema, peripheral perfusion with no cyanosis Neurological: sedated Data Micro: Micro: Microbiology 08/04/21 12:43 Blood Culture - Pr eliminary Blood SPE[facility]IMEN [facility] 08/04/21 12:38 Blood Culture - Pr eliminary Blood SPECIMEN [facility] A&P Additional A&P Information 1. Renal failure, critical hyperkalemia He presented with critical hyperkalemia with a potassium of 7 and bradycardic shock. His urine output is now minimal, with this in mind, medication will temporize his potassium but is unlikely to be definitively treated. With this in mind I would advise emergency hemodialysis with a 2K bath, minimal ultrafiltration for 3-1/2 hours. Daily evaluation for need for hemodialysis Renal failure site secondary to ischemic ATN We will check renal sonogram, CPK, uric acid Daily renal panel, strict I's and O's Dose medication for GFR less than 15 on dialysis 2. Chemistry Hyperkalemia, anion gap metabolic acidosis with elevated lactic acid level Dialysis will treat the hyperkalemia and healthy acidosis. Tissue perfusion will also help the acidosis. Daily renal panel strict I's and O's. 3. Vent dependent respiratory failure Management per the ICU, weaning of ventilator over the next few days 4. Cardiogenic shock Bradycardic likely secondary to hyperkalemia Dialysis External pacer Vasopressor agents as needed Thank you for consultation, it is a pleasure to follow these cases with you Exam and interview performed with aid of bedside RN using telemedicine Time spent 20 min inc > 50% of time in face to face counseling Parker Pérez MD [facility] [phone] Coding Level of Care Code Acute Java Grails Developer for Amadag Eun
--- NOTE | 2021-08-04 13:58 | P.CONIM_ITS ---
Providers/Reason For Consult Consulting Physician/Specialty*: Dr. Machuca, cardiology Reason for Consult*: Bradycardia and pauses requiring transcutaneous pacing, elevated troponin Primary Care Provider: MYA Do History of Present Illness History of Present Illness History was obtained mostly from chart: Tyree Lemon is a 81 year old male with h/o lung cancer s/p radiation and chemotherapy, chronic active smoking, HTN, COPD, OA and chronic pain syndrome. He also seems to have h/o aortic aneurysm s/p TEVAR and CHF. I do not details on any of these. No prior CAD, stroke or TIA per patient. EKG showed atrial flutter with RVR. Rightward axis. Poor R wave progression. Non specific ST-T wave changes. (from office). I have seen the patient in my office in January 2021. EMS was called as patient was more confused with the last 24 hours and on arrival EMS noted his fingerstick to be 12 or 13 and dextrose was given. He was also bradycardic and multiple doses of atropine was given followed by initiation of transcutaneous pacing. On arrival, blood pressure was in 70s and he was started on Levophed drip. His potassium was 7, creatinine 2.7 and hemoglobin of 7.7 He is requiring constant transcutaneous pacing (set at 90 bpm) at the time of evaluation. No code or downtime to my knowledge and as charted. I was asked to evaluate the patient for bradycardia and elevated troponin T > 100. Patient was intubated on arrival. Review of Systems General: Reports: ROS unobtainable due to endotracheal tube Meds/Allergies Home Medications and Allergies Home Medications Medication Instructions Recorded Confirmed Last Taken Type albuterol sulfate 90 mcg/actuation 2 puff INHALATION Q6H PRN 01/24/21 08/04/21 Unknown History aerosol inhaler apixaban 5 mg tablet 5 mg PO BID 01/24/21 08/04/21 Unknown History gabapentin 400 mg capsule 400 mg PO BID 01/24/21 08/04/21 Unknown History metoprolol succinate 200 mg 200 mg PO DAILY 01/24/21 08/04/21 Unknown History capsule sprinkle, ext. release 24 hr mirtazapine 15 mg tablet 15 mg PO DAILY 01/24/21 08/04/21 Unknown History naloxone 4 mg/actuation nasal spray 4 mg INTRANASAL Q3M PRN 01/24/21 08/04/21 Unknown History oxycodone-acetaminophen 10 mg-325 1 tab PO Q4H PRN 01/24/21 08/04/21 Unknown History mg tablet potassium chloride 20 mEq/15 mL 20 meq PO DAILY 01/24/21 08/04/21 Unknown History oral liquid furosemide 40 mg tablet 40 mg PO BID 30 Days #60 tab 03/02/21 08/04/21 Unknown Rx potassium chloride 20 mEq 20 meq PO Q12H 30 Days #60 tab 03/02/21 08/04/21 Unknown Rx tablet,extended release(part/cryst) tramadol 50 mg tablet 50 mg PO BID PRN 10 Days #20 tab 03/06/21 08/04/21 Unknown Rx diltiazem HCl 30 mg tablet 30 mg PO QID 30 Days #120 tab 03/20/21 08/04/21 Unknown Rx lisinopril 10 mg tablet 10 mg PO DAILY #30 tab 05/18/21 08/04/21 Unknown Rx Allergies Allergy/AdvReac Type Severity Reaction Status Date / Time No Known Allergies Allergy Verified 08/04/21 14:55 Current Medications Current Medications Generic Name Dose Route Start Last Admin Trade Name Freq PRN Reason Stop Dose Admin Norepinephrine Bitartrate 4 mg 254 mls @ 0 mls/hr 08/04/21 12:30 08/04/21 12:56 / Dextrose IV 18 mcg/min .Q0M BALBIR 68.58 mls/hr Titration Protocol Per Protocol Sodium Bicarbonate 50 meq/ 1,050 mls @ 100 mls/hr 08/04/21 13:00 08/04/21 13:21 Sodium Chloride IV 100 mls/hr .[id number] BALBIR Administration Dextrose 500 mls @ 100 mls/hr 08/04/21 13:02 08/04/21 13:49 D5w IV 100 mls/hr ONCE PRN Administration Adult Acute Hypoglycemia Prot Protocol PFSH Acute PFSH: Medical History Atrial flutter Back pain Chronic joint pain COPD (chronic obstructive pulmonary disease) Dental infection Hypertension Hypertension screen Left shoulder pain Lipoma of forearm Lung cancer Medication management Prostate cancer screening Right hip pain Right-sided chest pain RLL pneumonia Toothache Vitamin D deficiency Surgical History Previous back surgery Social History Smoking and tobacco status: current every day smoker Quit status (tobacco): considering quitting Alcohol intake: never Vitals/I&O/Wt Last Vital Signs Temp 91.8 F L 08/04/21 12:49 Pulse 80 08/04/21 11:55 Resp 16 08/04/21 12:21 BP 72/52 08/04/21 11:55 Pulse Ox 96 08/04/21 11:55 08/03/21 08/04/21 08/04/21 22:59 06:59 14:59 Intake Total 33.655 / 33.655 Balance 33.655 / 33.655 Weight last 48 hrs Weight 230 lb Physical Exam Narrative: EXAM NARRATIVE: GENERAL: Intubated and sedated NECK: Right neck pressure dressing in place CARDIOVASCULAR SYSTEM: S1-S2 regular. paced RESPIRATORY SYSTEM: Chest clear to auscultation decreased at mid to basal lung junior ABDOMEN: Soft, nontender and nondistended. Normal bowel sounds present. EXTREMITIES: edema. 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 This is a technically difficult study. #2. Normal left ventricular cavity size. Normal left ventricular systolic function. Left ventricular ejection fraction is estimated at 58 %. No regional wall motion abnormalities. Rhythm precludes evaluation of diastolic function. #3.Upper normal right ventricular size. Normal right ventricular systolic function. #4.Mild- moderately increased right atrial size. #5.Moderately increased left atrial size. #6. Moderate eccentric tricuspid valve regurgitation. #7. Mild pulmonary hypertension with pulmonary artery pressure estimated at 40 mmHg. #8. There is a small atrial septal aneurysm without any shunt. #9. When compared to prior echocardiogram dated , there may not have been any significant change. CTA chest 10 July 2021 IMPRESSION: 1. Nonocclusive embolism seen within the right lower lobe pulmonary artery. 2. Enlarging spiculated right lower lobe pulmonary mass measuring 3.7 x 3.7 x 6.4 cm today. 3. Enlarging suprahilar mass surrounding the right upper lobe bronchovascular structures. 4. Loculated appearing right pleural effusion extending into the major fissure. 5. A stent is present within the aortic arch and proximal descending thoracic aorta. 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 There is no evidence for dissection or extravasation. 6. There is mild reflux of contrast into the inferior vena cava and the posterior right hepatic vein and some increased septal markings are seen in the lower hemithoraces, findings that may represent pulmonary edema A&P Assessment and plan (1) Bradycardia: Sinus bradycardia; intermittent high-grade AV block -Likely secondary to hyperkalemia -Patient is currently requiring transcutaneous pacing -He would benefit from transvenous temporary pacemaker placement while hyperkalemia is being corrected. -Unsure if he was on high dose AV maria elena blockers at home Status: Acute (2) Hyperkalemia: Status: Acute (3) CHF exacerbation: Plan for echo -Is going for dialysis for hyperkalemia Status: Acute Qualifiers: Heart failure type: unspecified Qualified Code(s): I50.9 - Heart failure, unspecified (4) Atrial flutter: History of atrial flutter, was on metoprolol succinate 200 mg daily Cardizem 30 mg p.o. 4 times daily( when he was last seen in office in February 2021). -Unclear if he was taking it at home recently. Status: Acute Qualifiers: Atrial flutter type: unspecified Qualified Code(s): I48.92 - Unspecified atrial flutter Additional A&P Information Elevated troponin T: NSTEMI type II in setting of demand ischemia Nonocclusive PE noted on recent CT chest History of lung cancer with recent recurrence on the CAT scan Acute respiratory failure History of abdominal aortic aneurysm s/p endovascular repair. Thank you for allowing me to participate in patient's care. Please feel free to call with questions or concerns. Consult Attestations Time Spent in Patient Care: 16 - 35 minutes (>than 50% of time spent in counselling and/or direct pt care on unit) . Coding Level of Care Code Acute Javascript Developer for Malik Haq Diagnoses Bradycardia R00.1 Hyperkalemia E87.5 CHF exacerbation I50.9 Heart failure type: unspecified Atrial flutter I48.92 Atrial flutter type: unspecified
[2021-08-04] MEDS: insulin regular-human 250 UNIT in sodium chloride 0.9% 250 ML IV (14:07)
--- NOTE | 2021-08-04 14:18 | PM.HP ---
Providers/Chief Complaint Admitting Physician: Lyle Rollins MD Primary Care Provider: MYA Do Chief Complaint: RESP DISTRESS; HYPOGLYCEMIA History of Present Illness Tyree Lemon is a 81 year old male COPD , hypertension , atrial flutter on Eliquis, recently diagnosed right suprahilar spiculated mass with concern for lung carcinoma. Was brought in with chief complaint of , altered mental status, EMS was called by the family members as the patient was not behaving like himself, EMS on arrival found the blood sugar to be 13, he was given dextrose, and was brought to the hospital, upon arrival in the ER patient was bradycardic, in spite of giving atropine, external pacing was done, Patient was intubated in the ER. He was also requiring Levophed. Subsequent labs done in the ER: CT chest abdomen and pelvis with contrast: No acute PE, Segmental volume consolidated alveolar airspace disease right lower lobe which could reflect pneumonia and or atelectasis.right suprahilar spiculated mass with concern for lung carcinoma.moderate diffuse mucosal thickening of the colon consistent with either active inflammatory or infectious colitis. CT head without contrast: No acute intracranial pathology. CT cervical spin wo con:No acute findings. Pertinent labs: WBC 5.7 T, H&H:7.8/26, PLT:231, serum sodium 134 , serum potassium , : 7 , BUN / serum creatinine:55/2.7, serum bicarb : 16 , lactic acid:12.3 , uric acid 9.4, Magnesium 2.5, AST:1224, ALT:533, ALP:162, creatinine kinase:54 , Baseline troponin:127, 6-hour:110 , 6-hour delta:-16, proBNP: 9029 , TSH:9.71 , urinalysis: Dirty, ABG: pH 7.06 PCO2 44 PO2: 167 , FIO2: 100 Review of Systems General: Reports: ROS unobtainable due to endotracheal tube Medications/Allergies Home Medications Medication Instructions Recorded Confirmed Last Taken Type albuterol sulfate 90 mcg/actuation 2 puff INHALATION Q6H PRN 01/24/21 08/04/21 Unknown History aerosol inhaler apixaban 5 mg tablet 5 mg PO BID 01/24/21 08/04/21 Unknown History gabapentin 400 mg capsule 400 mg PO BID 01/24/21 08/04/21 Unknown History metoprolol succinate 200 mg 200 mg PO DAILY 01/24/21 08/04/21 Unknown History capsule sprinkle, ext. release 24 hr mirtazapine 15 mg tablet 15 mg PO DAILY 01/24/21 08/04/21 Unknown History naloxone 4 mg/actuation nasal spray 4 mg INTRANASAL Q3M PRN 01/24/21 08/04/21 Unknown History oxycodone-acetaminophen 10 mg-325 1 tab PO Q4H PRN 01/24/21 08/04/21 Unknown History mg tablet potassium chloride 20 mEq/15 mL 20 meq PO DAILY 01/24/21 08/04/21 Unknown History oral liquid furosemide 40 mg tablet 40 mg PO BID 30 Days #60 tab 03/02/21 08/04/21 Unknown Rx potassium chloride 20 mEq 20 meq PO Q12H 30 Days #60 tab 03/02/21 08/04/21 Unknown Rx tablet,extended release(part/cryst) tramadol 50 mg tablet 50 mg PO BID PRN 10 Days #20 tab 03/06/21 08/04/21 Unknown Rx diltiazem HCl 30 mg tablet 30 mg PO QID 30 Days #120 tab 03/20/21 08/04/21 Unknown Rx lisinopril 10 mg tablet 10 mg PO DAILY #30 tab 05/18/21 08/04/21 Unknown Rx Allergies Allergy/AdvReac Type Severity Reaction Status Date / Time No Known Allergies Allergy Verified 08/04/21 14:55 PFSH Acute PFSH: Medical History Atrial flutter Back pain Chronic joint pain COPD (chronic obstructive pulmonary disease) Dental infection Hypertension Hypertension screen Left shoulder pain Lipoma of forearm Lung cancer Medication management Prostate cancer screening Right hip pain Right-sided chest pain RLL pneumonia Toothache Vitamin D deficiency Surgical History Previous back surgery Social History Smoking and tobacco status: current every day smoker Quit status (tobacco): considering quitting Alcohol intake: never Vitals/I&O/Wt Last Vital Signs Temp 93.0 F L 08/04/21 14:07 Pulse 80 08/04/21 11:55 Resp 16 08/04/21 12:21 BP 72/52 08/04/21 11:55 Pulse Ox 96 08/04/21 11:55 08/03/21 08/04/21 08/04/21 22:59 06:59 14:59 Intake Total 49.657 / 49.657 Balance 49.657 / 49.657 Weight last 48 hrs Weight 104.326 kg Physical Exam Narrative: EXAM NARRATIVE: Intubated sedated and on mechanical ventilation: Off sedation GCS is 10T HENMT: COMMON NORMALS: normocephalic and atraumatic HEAD & SCALP: normocephalic and atraumatic Resp: COMMON NORMALS: clear to auscultation bilaterally AUSCULTATION: clear to auscultation bilaterally Cardio: COMMON NORMALS: regular rate, regular rhythm, S1 normal heart sound present, S2 normal heart sound present, No gallops present (Cardio), No murmurs present (Cardio), No rub (Cardio) and Peripheral pulses 2+ throughout RATE: regular rate RHYTHM: regular rhythm HEART SOUNDS: S1 normal heart sound present and S2 normal heart sound present PERIPHERAL PULSES: Peripheral pulses 2+ throughout GI: COMMON NORMALS: Normal to inspection, nondistended, normoactive bowel sounds present, Soft to palpation, non-tender, No hepatosplenomegaly present and no masses AUSCULTATION: Yes normoactive bowel sounds PALPATION: Yes Soft to palpation and Yes No hepatosplenomegaly present RECTAL EXAM: Yes deferred Extremity: COMMON NORMALS: no clubbing, cyanosis or edema and no pedal edema Neuro: COMMON NORMALS: patient oriented x3 Data : 08/04/21 12:15 08/04/21 12:15 Micro: Microbiology 08/04/21 12:43 Blood Culture - Preliminary Blood SPECIMEN [facility] 08/04/21 12:38 Blood Culture - Preliminary Blood SPECIMEN COLLECTED A&P Assessment and plan (1) Cardiogenic shock: Status: Acute (2) Bradycardia: Status: Acute (3) Hyperkalemia: Status: Acute (4) Renal failure: Status: Acute (5) Atrial flutter: Status: Acute (6) Sepsis: Status: Acute (7) Pneumonia: Status: Acute (8) Transaminitis: Status: Acute (9) Elevated troponin: Status: Acute (10) Lactic acidosis: Status: Acute (11) Metabolic acidosis: Status: Acute (12) Anemia: Status: Acute (13) COPD (chronic obstructive pulmonary disease): Status: Acute (14) Acute encephalopathy: Status: Acute (15) Hyperuricemia: Status: Acute Additional A&P Information Cardiogenic shock secondary to symptomatic bradycardia secondary to hyperkalemia secondary to acute renal failure: Possibly complicated by sepsis secondary to pneumonia: Transaminitis: Secondary to shock liver secondary to hypotension. Acute renal failure secondary to ischemic ATN. Lactic acidosis secondary to acute hypotension and consequently hypoperfusion Elevated troponin likely type II ID Acute metabolic encephalopathy: Secondary to severe hypoglycemia Blood culture: Urine culture: Lactic acid Procalcitonin Monitor x-ray chest Ultrasound abdomen Renal ultrasound Hepatitis panel Patient is currently being dialyzed through right femoral dialysis catheter, patient also has temporary pacemaker through left femoral vein. Continue Levophed, Continue vancomycin and Zosyn Continue to monitor BMP, CBC, ABG . Fingerstick glucose every 4 hours. Attestations Medical Necessity Statement*: Patient needs to be in the hospital for management of cardiogenic shock. Anticipate length of stay greater than 2 midnights. Critical Care Time: Critical Care Time (min): 45 Other Attestations: The high probability of a clinically significant, sudden or life threatening deterioration of the patient's [] system(s) required my full and direct attention, intervention and personal management. The critical care time is as shown. This time is in addition to time spent performing any reported procedures but includes the following: [x] Data and vital sign review and interpretation [x] Patient assessment, examination and intervention [x] Documentation [x] Medication orders and management Coding Level of Care Code Acute Director Of Philanthropy for [facility] Diagnoses Cardiogenic shock R57.0 Bradycardia R00.1 Hyperkalemia E87.5 Renal failure N19 Atrial flutter I48.92 Sepsis A41.9 Pneumonia J18.9 Transaminitis R74.01 Elevated troponin R77.8 Lactic acidosis E87.2 Metabolic acidosis E87.2 Anemia D64.9 COPD (chronic obstructive pulmonary disease) J44.9 Acute encephalopathy G93.40 Hyperuricemia E79.0
--- NOTE | 2021-08-04 14:53 | PM.CONSULT ---
Providers/Reason For Consult Consulting Physician/Specialty*: Joseph Calderon MD Reason for Consult*: Hemodialysis access Requesting Physician: Dr. Oviedo Attending Physician: Lyle Rollins MD Primary Care Provider: MYA Do History of Present Illness History of Present Illness Chief Complaint: Patient is intubated History of present illness: Tyree Lemon is a 81 year old male with multiple medical comorbidities. History of atrial flutter on chronic Eliquis therapy. Patient had altered mental status and was found to be confused over the past 24 hours. EMS was contacted and patient's blood sugar was 13. Appropriate resuscitation took place and apparently the patient had bradycardia which he responded to a dose of atropine. An external pacing was placed. Patient later on at some point was intubated and general surgery was consulted after nephrology recommended to have the patient undergo hemodialysis catheter placement due to hyperkalemia of 7 and lactic acid of 12.3. Patient was seen and evaluated in the emergency department room #11 on urgent basis Review of Systems General: Reports: ROS unobtainable due to endotracheal tube Meds/Allergies Home Medications and Allergies Home Medications Medication Instructions Recorded Confirmed Last Taken Type albuterol sulfate 90 mcg/actuation 2 puff INHALATION Q6H PRN 01/24/21 08/04/21 Unknown History aerosol inhaler apixaban 5 mg tablet 5 mg PO BID 01/24/21 08/04/21 Unknown History gabapentin 400 mg capsule 400 mg PO BID 01/24/21 08/04/21 Unknown History metoprolol succinate 200 mg 200 mg PO DAILY 01/24/21 08/04/21 Unknown History capsule sprinkle, ext. release 24 hr mirtazapine 15 mg tablet 15 mg PO DAILY 01/24/21 08/04/21 Unknown History naloxone 4 mg/actuation nasal spray 4 mg INTRANASAL Q3M PRN 01/24/21 08/04/21 Unknown History oxycodone-acetaminophen 10 mg-325 1 tab PO Q4H PRN 01/24/21 08/04/21 Unknown History mg tablet potassium chloride 20 mEq/15 mL 20 meq PO DAILY 01/24/21 08/04/21 Unknown History oral liquid furosemide 40 mg tablet 40 mg PO BID 30 Days #60 tab 03/02/21 08/04/21 Unknown Rx potassium chloride 20 mEq 20 meq PO Q12H 30 Days #60 tab 03/02/21 08/04/21 Unknown Rx tablet,extended release(part/cryst) tramadol 50 mg tablet 50 mg PO BID PRN 10 Days #20 tab 03/06/21 08/04/21 Unknown Rx diltiazem HCl 30 mg tablet 30 mg PO QID 30 Days #120 tab 03/20/21 08/04/21 Unknown Rx lisinopril 10 mg tablet 10 mg PO DAILY #30 tab 05/18/21 08/04/21 Unknown Rx Allergies Allergy/AdvReac Type Severity Reaction Status Date / Time No Known Allergies Allergy Verified 08/04/21 14:55 Current Medications Current Medications Generic Name Dose Route Start Last Admin Trade Name Freq PRN Reason Stop Dose Admin Norepinephrine Bitartrate 4 mg 254 mls @ 0 mls/hr 08/04/21 12:30 08/04/21 13:10 / Dextrose IV 14 mcg/min .Q0M BALBIR 53.34 mls/hr Titration Protocol Per Protocol Sodium Bicarbonate 50 meq/ 1,050 mls @ 100 mls/hr 08/04/21 13:00 08/04/21 13:21 Sodium Chloride IV 100 mls/hr .[id number] BALBIR Administration Dextrose 500 mls @ 100 mls/hr 08/04/21 13:02 08/04/21 13:49 D5w IV 100 mls/hr ONCE PRN Administration Adult Acute Hypoglycemia Prot Protocol Insulin Human Regular 250 unit 252.5 mls @ 0 mls/hr 08/04/21 13:15 08/04/21 14:07 / Sodium Chloride IV 5 mls/hr .Q0M BALBIR 5 mls/hr Administration Protocol Per Protocol PFSH Acute PFSH: Medical History Atrial flutter Back pain Chronic joint pain COPD (chronic obstructive pulmonary disease) Dental infection Hypertension Hypertension screen Left shoulder pain Lipoma of forearm Lung cancer Medication management Prostate cancer screening Right hip pain Right-sided chest pain RLL pneumonia Toothache Vitamin D deficiency Surgical History Previous back surgery Social History Smoking and tobacco status: current every day smoker Quit status (tobacco): considering quitting Alcohol intake: never Vitals/I&O/Wt Last Vital Signs Temp 93.0 F L 08/04/21 14:07 Pulse 80 08/04/21 11:55 Resp 16 08/04/21 12:21 BP 72/52 08/04/21 11:55 Pulse Ox 96 08/04/21 11:55 08/03/21 08/04/21 08/04/21 22:59 06:59 14:59 Intake Total 49.657 / 49.657 Balance 49.657 / 49.657 Weight last 48 hrs Weight 230 lb Physical Exam Narrative: EXAM NARRATIVE: Patient is intubated on mechanical ventilation. BMI 33 Head and neck examination PERRLA no masses no cervical lymphadenopathy no jaundice Cardiac examination audible S1-S2 no murmurs no gallops no arrhythmias Chest is clear bilateral,abscence of Rhonchi or wheezes,no surgical emphysema Abdomen nontender nondistended soft no organomegaly guarding or rigidity/no signs of peritonitis Extremities no cyanosis no clubbing no edema Data Micro: Micro: Microbiology 08/04/21 12:25 Gram Stain - Final Sputum - Endotrac heal Tube Aspirate 08/04/21 12:43 Blood Culture - Pr eliminary Blood SPECIMEN [facility] [place] 08/04/21 12:38 Blood Culture - Pr eliminary Blood SPECIMEN [facility] [place] A&P Assessment and plan (1) Hyperkalemia: Plan of care: After thorough history physical examination and reviewing the chart and reviweing the images iwth my personal intrepretation.I counseled the patient's son and granddaughter for nontunneled hemodialysis catheter placement, indications, risks including pneumothorax that may require Chest tube(s) placement and potential injury of major vascular structures that may require Thoractomy, benefits,indications and alternatives were all discussed with the patient's family in the presence of Dr. Rollins and nursing staff, patient's family understand and is interested to proceed. Rationale was carefully and clearly discussed with the patient's family.Appropriate informed consent have been reviewed and signed. Status: Acute Consult Attestations Medical Necessity Statement: Per admitting service Time Spent in Patient Care: Greater than 35 minutes Critical Care Time: Critical Care Time (min): 45 Coding Level of Care Code Acute Cloth Inspector for [facility] Fwd Diagnoses Hyperkalemia E87.5
--- NOTE | 2021-08-04 14:55 | XRR_ITS ---
PROCEDURE INFORMATION: Exam: XR Chest Exam date and time: 08/04/2021 2:55 PM Age: 81 years old Clinical indication: Device placement; Other: Et and og placement; Additional info: Dialysis cath placement R groin/ og placement TECHNIQUE: Imaging protocol: XR of the chest. Views: 1 view. Total images: 2 COMPARISON: CR (CHEST, ) 08/04/2021 12:46 PM FINDINGS: Tubes, catheters and devices: Endotracheal tube in satisfactory position tip above the sri. Nasogastric tube tip below the diaphragm tip out of the field of view directed toward the gastric antrum. Defibrillator pad overlies the anterior mediastinum central chest. Lungs: Right perihilar and right lower lobe consolidated alveolar airspace disease. Volume loss left lower lobe. COPD/chronic bronchitis. Please refer to CTA chest examination report same admission. Pleural spaces: Small right pleural effusion. Heart/Mediastinum: Cardiomegaly. Aneurysmal dilatation of the thoracic aorta. Tortuous thoracic aorta often seen in hypertensive cardiovascular disease. Thoracic aortic stent. Bones/joints: Unremarkable for age. XR/XR chest 1V portable [id number] IMPRESSION: 1. Endotracheal tube in satisfactory position tip above the sri. 2. Nasogastric tube tip below the diaphragm tip out of the field of view directed toward the gastric antrum. 3. Cardiopulmonary findings as detailed in text. 4. Please refer to CTA chest examination report same admission. Radiation Dose CTDIVOL = (mGy): DLP = (mGy-cm)
--- NOTE | 2021-08-04 14:58 | PM.ACPR ---
Procedure/Consent Time out: Time Out Performed: Yes Consent: Consent for Procedure: Consent obtained from other (indicate) (Patient's son and granddaughter), Risks & Benefits reviewed and Agrees to proceed with procedure (Hemodialysis catheter placement) Procedure Narrative: Pre Procedure diagnosis; acute hyperkalemia Postprocedure diagnoses the same Procedure done; 1-placement of 12 Fijian temporary dialysis catheter via right femoral vein. 2-ultrasound guidance revealing no intraluminal thrombosis of the right internal jugular and right femoral vein per my personal interpretation. Medications were reviewed to assess for anticoagulant usage. Risks and benefits and prevention of central line associated blood stream infection (CLABSI) were discussed with the patient/CPOA, and a consent was obtained. Monitors were in place and monitored throughout the procedure. All necessary supplies were available prior to start. Hand hygiene was completed prior to starting. Maximum barrier technique was utilized including a sterile gown, sterile gloves with a hat and mask. Site was was prepped with [chlorhexidine] and a full body drape was placed. 5 mL of 2% lidocaine was injected into the skin with a 25 gauge needle. Description Local anesthetic in the form of 1% lidocaine infiltrated at the site of insertion of the catheter Prep& drape was done under the usual sterile technique of upper chest and the right side of neck.lidocaine 1% was injected at the site of the stick, started by right internal jugular vein. Under ultrasound guidance there was no intraluminal thrombosis of the right internal jugular vein and venous blood was retrieved from the first attempt.Multiple attempts to pass the guidewire without success. At that point I decided to abort and to deviate my attention towards the right femoral vein. Pressure was held for 10 minutes on the right IJ followed by pressure dressing. After prep and drape of the right femoral vein and a new kit was obtained. Under ultrasound guidance I was able to identify the vein without evidence of intraluminal thrombosis. Access needle was introduced and venous blood was retrieved from the first attempt, the wire was then passed without difficulty and a small skin incision was obtained and dilators were introduced followed by 16 cm 12 Fijian hemodialysis catheter which was then secured to the skin after the wire was taken out. The port flushes were obtained of both Fany and venous blood was retrieved without difficulty. Biopatch was applied around the catheter and fresh dressing was then placed. EBL 25 mL Postprocedure chest x-ray was done, showed no pneumothorax after multiple attempts of the right internal jugular vein Patient tolerated the procedure well I Was present for the whole entire procedure Acute Procedures Epistaxis Control: Time out performed: Yes
--- NOTE | 2021-08-04 15:05 | PC.NURSE ---
assisting dr. mixon place a dialysis port. unsuccessful in neck. pressure dressing applied to left neck bleeding controlled.
[2021-08-04 15:10] LABS: Uric Acid 9.4 mg/dL (3.4-7.0)
--- NOTE | 2021-08-04 15:12 | PC.NURSE ---
not enough urine produced to collect urine specimen.
[2021-08-04 15:15] LABS: ABG PCO2 49.9 mmHg (35-45); Alveolar-Arterial Oxygen Gradi 44.9 mmHg (5-10); Arterial Blood Gas Hematocrit 23.6 % (42-52); Base Excess ABG -11.9 mmol/L (-2.0-2.0); Blood Gas Allen Test Pos; Blood Gas Operator Identificat MONRO; Blood Gas Sample Site Radial, right; Blood Gas Sample Type Arterial; Carboxyhemoglobin 1.5 %THgb (0.4-20.1); HCO3 ABG 16.6 mmol/L (22-26); HGB O2 Sat 96.8 % (95-100); Ionized Calcium Level - ABG 1.1 mmol/L (1.1-1.4); Oxygen Device VENT; Oxygen Saturation ABG 99.3; Potassium Level - ABG 6.2 mmol/L (3.5-5.0); Total Hemoglobin 7.7 g/dL (14-18)
[2021-08-04] MEDS: iodixanol 320 mg/mL 100mL Btl IV (16:01)
--- NOTE | 2021-08-04 16:09 | XACV_ITS ---
Exam Room: [facility] Gender: Male : 1940 Exam Priority: Routine Procedure(s): Procedure Description: Diagnostic procedure Procedure Description: Miscellaneous Procedure Description: Temporary Pacemaker Insertion More ESPINOSA; Conclusions 1. For intermittent complete heart block and symptomatic bradycardia patient who is now external pacer dependent brought to the [facility] as he was admitted to ER for major syncope and loss of consciousness, through left groin approach under sterilized condition and after obtaining consent from his son over the phone under this emergent condition temporary pacemaker was placed into the right ventricle. Asynchronous pacing at 70 bpm was established. For sensitivity output and heart rate in detail please visit the main body of the note. No complication noted. Temporary pacemaker was sutured and dressed. Recommendations * Post pacemaker usual care. Pressures Phase:Rest AO : / ( -44 ) @ 3:17:00 PM Clinical Evaluation EBL: 5mL-10mL Procedural Details Admit Source: Emergency department. Pre-Procedure Time Out. Identified patient by full name and date of as verbalized by the patient/guarantor. Does the consent match the physician's order: N/A Emergent. Accurate & Complete Informed Consent: N/A Emergent. Inpatient/Outpatient History & Physical on Chart: Yes. Visualize and Verify Site with Patient/Guarantor: N/A. Relevant Radiology Images available: N/A. Procedure started. Pt intubated and unresponsive. Externally paced. Dr Aguero attempting to gain emergency consent from family members at this time. IV Site on Arrival: 20 gauge in the left anticubital. IV Site on Arrival: 20 gauge in the right anticubital. Baseline sample Acquired. HR: 0 BPM. Physician notified. Baseline sample Acquired. HR: 64 BPM. Patient arrived to powerhouse laborer on a ventilator and will be managed by respiratiory. Physician arrived. physician scubbed in. Lidocaine 1% infiltrated to left femoral vein. Glidewire inserted through the arrow sheath. Glidewire removed. Temporty pacemaker inserted. Hand injection through the sheath. Pacemaker out. 5Fr Rim in over the exchange wire. Hand injection throught the RIM. RIM out over the Glidewire. Temporary pacemaker inserted. Temporary Pacemaker settings: Output 10, Sensitivity 0.5, HR set at 80 bpm. Norepinephine to 5mcg/min, down from 10mcg/min. Temporary pacemaker secured in place with suture. Successful pacing at 70 bpm. Post Procedure: Pulses reassessed and unchanged. Procedure completed. Total IV fluids: 50 mL. No VTE prophylaxis required. Post-op diagnosis: Post pacemaker for symptomatic bradycardia. Estimated blood loss: 5mL-10mL. A Suture was successful obtaining hemostatsis at the Left Femoral vein insertion site. Medication's Wasted: Lidocaine 1% = 10 mL. Complications: none. Vital chart was stopped. Access Site Site: Left Femoral vein Sheath Size: 6 Fr Hemostasis Method: Suture Hemostasis Success: Successful I, the attending physician, have reviewed and verified all procedure medications. Yes, all medications given per verbal order Report Signatures Finalized by Chandrakant Aguero MD on 08/19/2021 02:30 PM
--- NOTE | 2021-08-04 16:16 | W.PM.OPSUD ---
Surgery/Procedure H&P Update DATE OF PROCEDURE: August 04, 2021 DATE H&P PERFORMED: 08/04/21 H&P UPDATE INFORMATION: I have reviewed H&P completed within last 30 days and I have examined patient prior to procedure PREOP DIAGNOSIS: Heart block on external pacer PRIMARY INDICATION FOR PROCEDURE: Patient presented to the ER unconscious bradycardic he was intubated noted to have potassium of 7.0 and acute renal failure. He was externally paced. General cardiology and medicine recommended temporary pacemaker before proceeding with dialysis. He was getting treated medically for now. I have detailed discussion with the his patient Mr. Mikal Ford over the phone and he was not available in the hospital in case of this emergency we will proceed with temporary pacemaker through left groin. Patient son has been explained all risk benefit and alternative for the procedure would like to proceed with a PATIENT REASSESSED PRIOR TO SEDATION, WITH NO CHANGE NOTED: Yes OTHER PERTINENT EXAM FINDINGS: Patient is unresponsive intubated
--- NOTE | 2021-08-04 16:24 | PC.NURSE ---
vs printed and placed in chart for reference.
--- NOTE | 2021-08-04 16:28 | PC.NURSE ---
remaining bedside to monitor pt.
[2021-08-04 16:55] LABS: Glucose Point of Care 148 mg/dL (70-110)
[2021-08-04 16:55] LABS: Glucose Point of Care 159 mg/dL (70-110)
[2021-08-04 18:08] LABS: SARS Covid-2 Antigen Negative (Negative)
--- NOTE | 2021-08-04 18:11 | ECG_ITS ---
[facility] Test Date: 2021-08-04 Pat Name: Tyree Lemon Department: Room: ICU11 Gender: Male [place]: : 1940 Requested By: Lavelle Piña Order Number: [id number] Meagan MD: Brittaney Machuca M.D. Measurements Intervals [place] Rate: 80 P: NE: QRS: 265 QRSD: 188 T: 86 QT: 496 QTc: 572 Interpretive Statements ELECTRONIC VENTRICULAR PACEMAKER ABNORMAL RHYTHM ECG Compared to ECG 08/04/2021 12:01:25 Left-axis deviation no longer present Intraventricular conduction delay no longer present T-wave abnormality no longer present Prolonged QT interval no longer present Electronically Signed On 08-05-2021 13:24:41 ASSOCIATE PROFESSOR OF ARCHAEOLOGY by Brittaney Machuca M.D. [id number]
[2021-08-04 18:33] LABS: Bilirubin Urine 1+ (Negative); Blood Urine 3+ (Negative); Glucose Urine UA Trace (Normal); Ketones Urine Negative (Negative); Leukocyte Esterase Urine 2+ (Negative); Nitrate Urine Negative (Negative); Protein Urine 3+ (Negative); Urine Appearance Hazy (CLEAR); Urine Color Amber (Yellow); Urobilinogen Urine Norm (Negative); pH Urine 5 (5-7)
[2021-08-04 18:35] LABS: Amorphous Sediment Urine 2+ /hpf; Bacteria Urine 4+ /hpf; Mucus Urine 1+ /hpf; RBC Urine 15-25 /hpf (0-2); WBC Urine 40-55 /hpf (0-5)
[2021-08-04 18:36] LABS: Add Urine Culture? Yes
[2021-08-04 18:41] LABS: ABG PH Result 7.13 (7.35-7.45)
[2021-08-04 18:43] LABS: Lactic Sepsis W/Reflex 3.4 mmol/L (0.5-2.2)
[2021-08-04 18:53] LABS: Troponin 5 6HR 110.9 ng/L (0-15); Troponin 5 6HR Delta -16.1 ng/L (0-12)
[2021-08-04] MEDS: norepinephrine 8 MG in dextrose 5 % 500 ML 19.05 MG IV (19:23)
[2021-08-04] MEDS: propofol 1,000 MG/100 ML INJ 3.13 MG IV (19:45)
--- NOTE | 2021-08-04 19:53 | PC.NURSE ---
Patient receiving dialysis. Patient noted to desat, upon assessment patients eyes are open and moving. Patient was able to turn head towards nurse when being spoken too, patient also squeezed nurses hand with right hand. Continue care
[2021-08-04 20:01] LABS: Reflex Lactate Order REFLEX LACTIC ORDERD
[2021-08-04] MEDS: heparin,porcine 1,000 unit/mL INJ 1 mL 1000 UNIT INJECTION (20:09)
[2021-08-04] MEDS: piperacillin-tazobactam 3.375 GM in sodium chloride 0.9% (plus) 50 ML IV (20:12)
[2021-08-04 20:53] LABS: Lactic Acid level (Lactate) 2.2 mmol/L (0.5-2.2)
[2021-08-04 21:16] LABS: Basophils % 0.1 %; Hematocrit 25.8 % (42.0-52.0); Hemoglobin 7.2 g/dL (11.7-16.6); Lymphocytes # 0.5 10^3/uL (0.8-4.8); Lymphocytes % 3.4 %; Mean Corpuscular HGB Conc 27.9 g/dL (30.0-36.0); Mean Corpuscular Hemoglobin 23.2 pg (28.0-34.0); Mean Corpuscular Volume 83.2 fl (80-94); Mean Platelet Volume 11.5 fL (7.4-10.4); Monocytes # 1.1 10^3/uL (0.2-0.9); Monocytes % 7.9 %; Neutrophils # 12.06 10^3/uL (1.8-7.7); Nucleated Red Blood Cells # 0.1 /100WBC; Nucleated Red Blood Cells % 0.9 %; Platelet Count 244 10^3/cmm (130-400); Red Cell Distribution Width 20.3 % (12.1-15.1); White Blood Count 13.7 10^3/uL (4.0-10.0)
--- NOTE | 2021-08-04 22:14 | PC.NURSE ---
Spoke with family and updated them on patients condition. Patient does have a pressure ulcer on left buttocks upon skin assessment and present upon admission.
[2021-08-05] VITALS (69 sets, daily range): BP systolic 76–118; BP diastolic 50–72; PULSE 61–83; RESP 16–31; TEMP 32.6–37.1; O2SAT 89–100
[2021-08-05 00:47] LABS: Glucose Point of Care 148 mg/dL (70-110)
[2021-08-05 00:47] LABS: Glucose Point of Care 86 mg/dL (70-110)
[2021-08-05] MEDS: propofol 1,000 MG/100 ML INJ 12.52 MG IV (01:41)
--- NOTE | 2021-08-05 01:48 | PC.HD ---
Pt brought to ICU from [facility] s/p temporary pacemaker insertion for bradycardia, K+ 7.0. Pt is sedated and ventilated via ETT and has newly inserted right femoral dialysis catheter, tegaderm dressing intact with bloody drainage visible and leaking out from under dressing. Patient is on a Levophed drip at 5 mcg/min. Dialysis initiated once the patient was settled in ICU room. Dialysis catheter functioned well, however when pt started waking, his movements caused the AP to spike frequently, stopping the blood pump, and required flushing to allow AP to drop and tx to resume, and reduction of BFR was needed to continue treatment. Treatment was completed without incident, patient tolerated well. Post treatment dialyzer noted to have yellow cast.
[2021-08-05] MEDS: piperacillin-tazobactam 3.375 GM in sodium chloride 0.9% (plus) 50 ML IV ×3 (02:40→20:29)
[2021-08-05 03:40] LABS: Basophils % 0.2 %; Eosinophils % 0.1 %; Hematocrit 22.8 % (42.0-52.0); Lymphocytes # 0.5 10^3/uL (0.8-4.8); Lymphocytes % 4.4 %; Mean Corpuscular HGB Conc 28.1 g/dL (30.0-36.0); Mean Corpuscular Hemoglobin 22.6 pg (28.0-34.0); Mean Corpuscular Volume 80.6 fl (80-94); Mean Platelet Volume 11.2 fL (7.4-10.4); Monocytes # 0.7 10^3/uL (0.2-0.9); Monocytes % 5.8 %; Neutrophils # 10.15 10^3/uL (1.8-7.7); Neutrophils % 89.1 %; Nucleated Red Blood Cells # 0.2 /100WBC; Nucleated Red Blood Cells % 1.6 %; Platelet Count 179 10^3/cmm (130-400); Red Blood Count 2.83 10^6/uL (4.1-5.3); Red Cell Distribution Width 20.3 % (12.1-15.1); White Blood Count 11.4 10^3/uL (4.0-10.0)
[2021-08-05 03:55] LABS: Hemoglobin 6.4 g/dL (11.7-16.6)
[2021-08-05 03:57] LABS: INR 2.95 (0.8-1.2)
[2021-08-05 03:58] LABS: Partial Thromboplastin Time 42.8 SECONDS (23.9-36.7)
[2021-08-05 04:11] LABS: NT Pro B Type Natriuretic Pept 5723 pg/mL (0-450); Procalcitonin 6.46 ng/mL (0-0.5)
[2021-08-05 04:12] LABS: Albumin Level 2.6 g/dL (3.5-5.2); Alkaline Phosphatase 130 IU/L (40-130); Anion Gap 17.3 (5-19); Blood Urea Nitrogen 29 mg/dL (8-23); Calcium 7.4 mg/dL (8.5-10.5); Carbon Dioxide 24 mmol/L (22-29); Chloride 98 mmol/L (98-107); Globulin 3.2 g/dL (1.3-4.6); Glucose 87 mg/dL (65-115); Osmolality Calculated 283 mOsm/kg (285-295); Phosphorus 4.3 mg/dL (2.5-4.5); Potassium 5.3 mmol/L (3.5-5.1); Sodium 134 mmol/L (136-145); Thyroid Stimulating Hormone 4.09 uIU/mL (0.27-4.20); Total Bilirubin 1.4 mg/dL (0.15-1.2); Total Protein 5.8 g/dL (6.6-8.7)
[2021-08-05 04:14] LABS: Hepatitis B Core AB, Total Non-Reactive (Nonreactive); Hepatitis B Surface AB 3.5 (11.5-1000); Hepatitis B Surface Antigen Non-Reactive (Nonreactive)
[2021-08-05 04:23] LABS: Alanine Aminotransferase 1349 U/L (0-41)
[2021-08-05 04:26] LABS: Aspartate Amino Transferase 2792 U/L (0-40)
--- NOTE | 2021-08-05 05:00 | XRR_ITS ---
PROCEDURE INFORMATION: Exam: XR Chest Exam date and time: 08/05/2021 5:00 AM Age: 81 years old Clinical indication: Shortness of breath; Patient HX: Cp - resp failure; Additional info: Pna TECHNIQUE: Imaging protocol: XR of the chest. Views: 1 view. COMPARISON: CR (CHEST, ) 08/04/2021 3:16 PM FINDINGS: Tubes, catheters and devices: ET tube still in good position with its tip about 5.7 cm above the sri. Continued extension of the enteric tube below the diaphragm with its tip not included. Interval appearance of an electrode extending from the IVC region through the right atrial area into the right ventricular region. Endograft in the aortic arch and proximal descending aorta still present. Continued aortic tortuosity. Lungs: Continued patchy slight stranding/haziness in the right middle and lower lung. Slightly increased markings in the left lung base still probable. No interval consolidation. Continued prominent lung volumes. Pleural spaces: No suggestion of an interval large pneumothorax on this supine image. Small right pleural effusion still probable. Heart/Mediastinum: Continued slight cardiomegaly. Bones/joints: No suggestion of acute bony disease. XR/XR chest 1V portable [id number] IMPRESSION: 1. Interval appearance of the electrode extending from the IVC region through the right atrium into the right ventricle. Endotracheal tube still in good position. No obvious change in the enteric tube. 2. Continued slight cardiomegaly. Aortic endograft again evident. 3. No change in the slight bilateral lung disease. Small right pleural effusion still probable. Other findings detailed above. Radiation Dose CTDIVOL = (mGy): DLP = (mGy-cm)
[2021-08-05 05:08] LABS: Glucose Point of Care 100 mg/dL (70-110)
--- NOTE | 2021-08-05 05:52 | PC.NURSE ---
Shift Note Frequent safety and comfort rounds continue. Orders and/or nursing care completed as indicated. Patient monitored for response to intervention and treatment(s). Education provided includes monitoring pain and blood sugar levels. Patient and/or new accounts representative reinforcement needed. Will continue to monitor.
--- NOTE | 2021-08-05 08:13 | PM.PN ---
Subjective Subjective: Interval history: Events of the last 24 hours noted. External pacing wire converted to temporary pacing wire. He received emergent dialysis yesterday afternoon, follow potassium level now 5.3 i.e. in a safe range. Urine output noted to be roughly 750 mL over the last 24 hours since hospitalization. Davis catheter remains in place. FiO2 reasonable at 35% maintaining his oxygen levels. Medications: Reviewed: Yes Vitals/I&O/Wt Last Vital Signs Temp 98.4 F 08/05/21 04:32 Pulse 80 08/05/21 05:56 Resp 20 H 08/05/21 05:47 BP 102/66 08/05/21 00:30 Pulse Ox 97 08/05/21 05:47 08/04/21 08/05/21 08/05/21 22:59 06:59 14:59 Intake Total 1781.410 / 2907.737 402.682 / 3310.419 Output Total 300 / 300 750 / 1050 Balance 1481.410 / 2607.737 -347.318 / 2260.419 Weight last 48 hrs Weight 81.1 kg Weight 79.605 kg Weight 104.326 kg Physical Exam Narrative: EXAM NARRATIVE: Constitutional: Sedated and vented HEENT: Wet mucosa, no jvp, non icteric Lungs: Bilaterally clear without discernible wheeze or rales in all lung zones CVS: S1 S2, no murmurs Abdo: Soft, BS ok Ext 4: 2-3+ edema, peripheral perfusion with no cyanosis Neurological: sedated Data : 08/05/21 02:50 08/05/21 02:50 Micro: Microbiology 08/04/21 12:25 Gram Stain - Final Sputum - Endotracheal Tube Aspirate 08/04/21 12:43 Blood Culture - Preliminary Blood SPECIMEN COLLECTED 08/04/21 12:38 Blood Culture - Preliminary Blood SPECIMEN COLLECTED A&P Additional A&P Information 1. Renal failure, critical hyperkalemia He presented with critical hyperkalemia with a potassium of 7 and bradycardic shock. Likely ischemic ATN Daily evaluation for need for hemodialysis Formal report for US pending, no hydro seen Daily renal panel, strict I's and O's Dose medication for GFR less than 15 on dialysis 2. Chemistry Hyperkalemia significantly improved; now 5.3. Recheck K later today 3. Vent dependent respiratory failure Management per the ICU, weaning of ventilator over the next few days 4. Cardiogenic shock Bradycardic likely secondary to hyperkalemia Dialysis Temp pacer in place per cardiology Vasopressor agents as needed 5. Anemia For PRBCs today, close monitoring of H/H Thank you for consultation, it is a pleasure to follow these cases with you Very guarded prognosis, on going discussion with family members regarding goals of care Exam and interview performed with aid of bedside RN using telemedicine Time spent 20 min inc > 50% of time in face to face counseling Parker Pérez MD [facility] [phone] Attestations Medical Necessity Statement*: Eval for renal failure Coding Level of Care Code Acute Day Care Teacher for [facility]
--- NOTE | 2021-08-05 08:17 | P.PN_ITS ---
Subjective Subjective: Interval history: He underwent dialysis yesterday. Potassium level has improved. Medications: Reviewed: Yes Medication Review Details: Current Medications Acetaminophen (Acetaminophen 325 Mg Tablet) 650 mg PO Q6H PRN PRN Reason: Mild/Mod Pain Or Temp >/= 101 Atropine Sulfate (Atropine 1 Mg/Ml Sdv 1 Ml) 0.5 mg IVP PRN PRN PRN Reason: Symptomatic bradycardia Bisacodyl (Bisacodyl 5 Mg Tablet) 10 mg PO DAILY PRN; Protocol PRN Reason: Constipation (see protocol) Dextrose (Dextrose 50% Syringe 50 Ml) 25 ml IVP ONCE PRN; Protocol PRN Reason: hypoglycemia protocol Dextrose (Dextrose 50% Syringe 50 Ml) 50 ml IVP PRN PRN; Protocol PRN Reason: hypoglycemia protocol Glucagon (Glucagon 1 Mg/Ml Inj 1 Ml) 1 mg IM ONCE PRN; Protocol PRN Reason: Adult Acute Hypoglycemia Prot Dextrose (D5w) 500 mls @ 100 mls/hr IV ONCE PRN; Protocol PRN Reason: Adult Acute Hypoglycemia Prot Last Infusion: 08/04/21 18:16 Dose: 0 mls/hr Documented by: Insulin Human Regular 250 unit (/ Sodium Chloride) 252.5 mls @ 0 mls/hr IV .Q0M BALBIR; Protocol Last Titration: 08/04/21 18:16 Dose: 0 mls/hr, 0 mls/hr Documented by: Norepinephrine Bitartrate 4 mg (/ Dextrose) 254 mls @ 0 mls/hr IV .Q0M BALBIR; Protocol Propofol (Diprivan) 1,000 mg in 100 mls @ 0 mls/hr IV .Q0M BALBIR; Protocol Last Titration: 08/05/21 11:42 Dose: 8 mcg/kg/min, 5.01 mls/hr Documented by: Fentanyl 1,000 mcg/ Sodium (Chloride) 100 mls @ 0 mls/hr IV .Q0M BALBIR; Protocol Last Admin: 08/05/21 11:08 Dose: 25 mcg/hr, 2.5 mls/hr Documented by: Vancomycin/PEG/NADA/Lysine/Water (Vancocin) 1,500 mg in 300 mls @ 200 mls/hr IV Q36H BALBIR Last Admin: 08/04/21 19:54 Dose: Not Given Documented by: Piperacillin Sod/Tazobactam (Sod 3.375 gm/ Sodium Chloride) 50 mls @ 12.5 mls/hr IV Q8H BALBIR; Protocol Last Infusion: 08/05/21 06:44 Dose: Infused Documented by: Norepinephrine Bitartrate 8 mg (/ Dextrose) 508 mls @ 0 mls/hr IV .Q0M BALBIR; Protocol Last Titration: 08/05/21 11:28 Dose: 12 mcg/min, 45.72 mls/hr Documented by: Midazolam HCl 100 mg/ Sodium (Chloride) 100 mls @ 0 mls/hr IV .Q0M BALBIR; Protocol Last Admin: 08/05/21 11:10 Dose: 2 mg/hr, 2 mls/hr Documented by: Vancomycin/PEG/NADA/Lysine/Water (Vancocin) 1,250 mg in 250 mls @ 250 mls/hr IV Q24H BALBIR Magnesium Hydroxide (Magnesium Hydroxide 30 Ml Udc) 30 ml PO DAILY PRN PRN Reason: CONSTIPATION Naloxone HCl (Naloxone 0.4 Mg/Ml Sdv) 0.1 mg IVP Q2M PRN PRN Reason: RESPIRATORY RATE < 8/MIN Nitroglycerin (Nitroglycerin 0.4 Mg Sublingual Tablet) 0.4 mg SUBLINGUAL Q5M PRN PRN Reason: CHEST PAIN Ondansetron HCl (Ondansetron 2 Mg/Ml Sdv 2 Ml) 4 mg IVP Q8H PRN PRN Reason: vomiting, or N/V if npo Vitals/I&O/Wt Last Vital Signs Temp 98.4 F 08/05/21 04:32 Pulse 80 08/05/21 05:56 Resp 20 H 08/05/21 05:47 BP 102/66 08/05/21 00:30 Pulse Ox 97 08/05/21 05:47 08/04/21 08/05/21 08/05/21 22:59 06:59 14:59 Intake Total 1781.410 / 2907.737 402.682 / 3310.419 Output Total 300 / 300 750 / 1050 Balance 1481.410 / 2607.737 -347.318 / 2260.419 Weight last 48 hrs Weight 178 lb 12.718 oz Weight 175 lb 8 oz Weight 230 lb Physical Exam Narrative: EXAM NARRATIVE: GENERAL: Intubated and sedated, NECK: Right neck pressure dressing in place CARDIOVASCULAR SYSTEM: S1-S2 regular. paced RESPIRATORY SYSTEM: Chest clear to auscultation decreased at mid to basal lung junior ABDOMEN: Soft, nontender and nondistended. Normal bowel sounds present. EXTREMITIES: 1+edema. DEVELOPER RELATIONS MANAGER: Patient intubated and sedated; GCS 10 T off sedation Data : 08/05/21 02:50 08/05/21 02:50 Micro: Microbiology 08/04/21 12:25 Gram Stain - Final Sputum - Endotracheal Tube Aspirate 08/04/21 12:43 Blood Culture - Preliminary Blood SPECIMEN COLLECTED 08/04/21 12:38 Blood Culture - Preliminary Blood SPECIMEN COLLECTED A&P Assessment and plan (1) Bradycardia: Sinus bradycardia; intermittent high-grade AV block -Likely secondary to hyperkalemia -Patient is currently requiring transcutaneous pacing -s/p transvenous temporary pacemaker placement while hyperkalemia is being corrected. -Unsure if he was on high dose AV maria elena blockers at home -Heart rate sinus bradycardia in 50s to 60s with intermittent pauses. Status: Acute (2) Hyperkalemia: Follow-up on repeat BMP this afternoon Status: Acute (3) CHF exacerbation: Plan for echo -s/p dialysis for hyperkalemia Status: Acute Qualifiers: Heart failure type: unspecified Qualified Code(s): I50.9 - Heart failure, unspecified (4) Cardiogenic shock: -Cardiogenic shock due to underlying bradycardia due to underlying hyperkalemia on presentation -remains on Levophed however I believe a lot of it now is with propofol and versed while intubated. Status: Acute (5) Atrial flutter: History of atrial flutter, was on metoprolol succinate 200 mg daily Cardizem 30 mg p.o. 4 times daily( when he was last seen in office in February 2021). -Unclear if he was taking it at home recently. -Remains in sinus rhythm -Off anticoagulation due to severe anemia Status: Acute Qualifiers: Atrial flutter type: unspecified Qualified Code(s): I48.92 - Unspecified atrial flutter Additional A&P Information Elevated troponin T: NSTEMI type II in setting of demand ischemia Nonocclusive PE noted on recent CT chest Severe anemia: Requiring blood transfusion History of lung cancer with recent recurrence on the CAT scan Acute respiratory failure History of abdominal aortic aneurysm s/p endovascular repair. Thank you for allowing me to participate in patient's care. Please feel free to call with questions or concerns. Attestations Medical Necessity Statement*: As per primary team Time Spent in Patient Care: 16 - 35 minutes (>than 50% of time spent in counselling and/or direct pt care on unit) . Coding Level of Care Code Acute [facility] for Malik [facility]wood[facility] Diagnoses Bradycardia R00.1 Hyperkalemia E87.5 CHF exacerbation I50.9 Heart failure type: unspecified Cardiogenic shock R57.0 Atrial flutter I48.92 Atrial flutter type: unspecified
[2021-08-05 09:44] LABS: ABG PCO2 38.4 mmHg (35-45); ABG PH Result 7.47 (7.35-7.45); Arterial Blood Gas Hematocrit 21.3 % (42-52); Blood Gas Allen Test Pos; Blood Gas Operator Identificat GD; Blood Gas Sample Site Radial, left; Blood Gas Sample Type Arterial; Carboxyhemoglobin 1.5 %THgb (0.4-20.1); HGB O2 Sat 92.5 % (95-100); Ionized Calcium Level - ABG 1.1 mmol/L (1.1-1.4); Oxygen Device VENT; PO2 ABG 68.6 mmHg (80.0-100.0); Potassium Level - ABG 4.8 mmol/L (3.5-5.0); Total Hemoglobin 6.9 g/dL (14-18)
[2021-08-05 09:46] LABS: Alveolar-Arterial Oxygen Gradi 77.5 mmHg (5-10)
--- NOTE | 2021-08-05 10:19 | XRR_ITS ---
PROCEDURE INFORMATION: Exam: XR Chest Exam date and time: 08/05/2021 10:19 AM Age: 81 years old Clinical indication: Device placement; Other: Central line placement TECHNIQUE: Imaging protocol: XR of the chest. Views: 1 view. Total images: 1 COMPARISON: CR XR chest 1V portable [id number] 08/05/2021 4:54 AM FINDINGS: Tubes, catheters and devices: A left internal jugular central venous catheter is present, with its tip overlying the junction of the left brachiocephalic vein and SVC. No pneumothorax. Tubes and catheters are otherwise unchanged from the prior exam. Lungs: Stable right pleuroparenchymal disease. Pleural spaces: No pneumothorax. Heart/Mediastinum: Mild cardiomegaly stable. Bones/joints: Osseous structures are unchanged from the prior exam. Other findings: Stable postsurgical changes. XR/XR chest 1V portable [id number] IMPRESSION: 1. A left internal jugular central venous catheter is present, with its tip overlying the junction of the left brachiocephalic vein and SVC. No pneumothorax. Tubes and catheters are otherwise unchanged from the prior exam. 2. Mild cardiomegaly stable. 3. Stable right pleuroparenchymal disease. Radiation Dose CTDIVOL = (mGy): DLP = (mGy-cm)
[2021-08-05] MEDS: sodium chloride 0.9% (100 ml) 100 ML 10 ML ×2 (10:30→15:12)
--- NOTE | 2021-08-05 10:37 | P.PN_ITS ---
Subjective Subjective: Interval history: Patient was seen and examined this morning, continues to be intubated sedated and on mechanical ventilation, off sedation GCS is 10 T, received hemodialysis last night, hyperkalemia has improved currently serum potassium is 5.3, total urine output has been 1050, on minimal ventilator support, but currently vasopressor requirement is high. Continues to be on transvenous pacemaker , intrinsic rhythm is sinus bradycardia with intermittent pauses. Rate in 50s to 60s. Medications: Reviewed: Yes Vitals/I&O/Wt Last Vital Signs Temp 98.2 F 08/05/21 08:46 Pulse 78 08/05/21 08:46 Resp 20 H 08/05/21 10:25 BP 91/57 08/05/21 08:46 Pulse Ox 97 08/05/21 10:25 08/04/21 08/05/21 08/05/21 22:59 06:59 14:59 Intake Total 1781.410 / 2907.737 402.682 / 3310.419 0 / 0 Output Total 300 / 300 750 / 1050 Balance 1481.410 / 2607.737 -347.318 / 2260.419 0 / 0 Weight last 48 hrs Weight 81.1 kg Weight 79.605 kg Weight 104.326 kg Physical Exam Narrative: EXAM NARRATIVE: Intubated sedated and on mechanical ventilation: Off sedation GCS is 10T Const: COMMON NORMALS: patient oriented x3 HENMT: COMMON NORMALS: normocephalic and atraumatic HEAD & SCALP: normocephalic and atraumatic Resp: COMMON NORMALS: clear to auscultation bilaterally AUSCULTATION: clear to auscultation bilaterally Cardio: COMMON NORMALS: regular rate, regular rhythm, S1 normal heart sound present, S2 normal heart sound present, No gallops present (Cardio), No murmurs present (Cardio), No rub (Cardio) and Peripheral pulses 2+ throughout RATE: regular rate RHYTHM: regular rhythm HEART SOUNDS: S1 normal heart sound present and S2 normal heart sound present PERIPHERAL PULSES: Peripheral pulses 2+ throughout GI: COMMON NORMALS: Normal to inspection, nondistended, normoactive bowel sounds present, Soft to palpation, non-tender, No hepatosplenomegaly present and no masses AUSCULTATION: Yes normoactive bowel sounds PALPATION: Yes Soft to palpation and Yes No hepatosplenomegaly present RECTAL EXAM: Yes deferred Extremity: COMMON NORMALS: no clubbing, cyanosis or edema and no pedal edema Neuro: COMMON NORMALS: patient oriented x3 Data : 08/05/21 02:50 08/05/21 02:50 Micro: Microbiology 08/04/21 12:25 Gram Stain - Final Sputum - Endotracheal Tube Aspirate Sputum Culture - Preliminary Gram Negative Rods 08/04/21 13:10 Urine Culture - Preliminary Urine,Clean Catch 08/04/21 12:43 Blood Culture - Preliminary Blood SPECIMEN COLLECTED 08/04/21 12:38 Blood Culture - Preliminary Blood SPECIMEN COLLECTED A&P Assessment and plan (1) Cardiogenic shock: Status: Acute (2) Bradycardia: Status: Acute (3) Hyperkalemia: Status: Acute (4) Renal failure: Status: Acute (5) Atrial flutter: Status: Acute (6) Sepsis: Status: Acute (7) Pneumonia: Status: Acute (8) Transaminitis: Status: Acute (9) Elevated troponin: Status: Acute (10) Lactic acidosis: Status: Acute (11) Metabolic acidosis: Status: Acute (12) Anemia: Status: Acute (13) COPD (chronic obstructive pulmonary disease): Status: Acute (14) Acute encephalopathy: Status: Acute (15) Hyperuricemia: Status: Acute (16) History of upper gastrointestinal bleeding: Recent EGD has shown gastritis: Eliquis was kept on hold for 2 weeks and was restarted. Continue Protonix 40 mg IV every 12 hours daily. Status: Acute (17) Liver cirrhosis: Cirrhotic appearing liver. On CT abdomen and pelvis: Status: Acute (18) Severe pulmonary hypertension: Status: Acute Additional A&P Information Cardiogenic shock secondary to symptomatic bradycardia secondary to hyperkalemia secondary to acute renal failure: Possibly complicated by sepsis secondary to pneumonia: Transaminitis: Secondary to shock liver secondary to hypotension. Acute renal failure secondary to ischemic ATN. Lactic acidosis secondary to acute hypotension and consequently hypoperfusion Elevated troponin likely type II MS Acute metabolic encephalopathy: Secondary to severe hypoglycemia Blood culture:NTD Urine culture: Lactic acid Rapid Covid negative Procalcitonin:6.46, ( difficult to interpret in the presence of acute renal failure ) Monitor x-ray chest Ultrasound abdomen: moderate amount of free intra-abdominal fluid.Infrarenal abdominal aortic aneurysm measured at 3.1 cm.Mild gallbladder wall thickening measured between 0.4 and 0.8 cm. No sludge nor gallstones detected. 2D echo: Normal LV cavity size, mildly increased LV wall thickness, normal LV systolic function, estimated LVEF 55, No RWMA , Moderately dilated right ventricle with moderately decreased right ventricle systolic function. Severe pulmonary hypertension with pulmonary artery pressure estimated at 66 mmHg. Severe biatrial enlargement. Possibly severe tricuspid valve regurgitation. Mild mitral valve regurgitation. Renal ultrasound: Hepatitis B surface antigen: Negative Patient is currently being dialyzed through right femoral dialysis catheter, patient also has temporary pacemaker through left femoral vein. Continue Levophed, Continue vancomycin and Zosyn Versed , fentanyl, propofol Continue to monitor BMP, CBC, ABG . Fingerstick glucose every 4 hours. Attestations Medical Necessity Statement*: Patient is to be in hospital for management above defined problems. Time Spent in Patient Care: Greater than 35 minutes Critical Care Time: Critical Care Time (min): 45 Other Attestations: The high probability of a clinically significant, sudden or life threatening deterioration of the patient's [] system(s) required my full and direct attention, intervention and personal management. The critical care time is as shown. This time is in addition to time spent performing any reported procedures but includes the following: [x] Data and vital sign review and interpretation [x] Patient assessment, examination and intervention [x] Documentation [x] Medication orders and management Coding Level of Care Code Acute K[facility]iology Internship for [facility] Fwd Exam Detailed Diagnoses Cardiogenic shock R57.0 Bradycardia R00.1 Hyperkalemia E87.5 Renal failure N19 Atrial flutter I48.92 Sepsis A41.9 Pneumonia J18.9 Transaminitis R74.01 Elevated troponin R77.8 Lactic acidosis E87.2 Metabolic acidosis E87.2 Anemia D64.9 COPD (chronic obstructive pulmonary disease) J44.9 Acute encephalopathy G93.40 Hyperuricemia E79.0 History of upper gastrointestinal bleeding Z87.19 Liver cirrhosis K74.60 Severe pulmonary hypertension I27.20
[2021-08-05] MEDS: norepinephrine 8 MG in dextrose 5 % 500 ML 38.1 MG IV (11:18)
[2021-08-05] MEDS: propofol 1,000 MG/100 ML INJ 6.26 MG IV (11:20)
--- NOTE | 2021-08-05 11:37 | PC.NURSE ---
Consulting Property Manager decreased temp pacemaker rate from 90 to 60 at this time.
--- NOTE | 2021-08-05 13:57 | USR_ITS ---
PROCEDURE INFORMATION: Exam: US Abdomen Complete Exam date and time: 08/05/2021 1:57 PM Age: 81 years old Clinical indication: Other: ? Transminitis; Additional info: Renal failure TECHNIQUE: Imaging protocol: Real-time ultrasound of the abdomen with image documentation. Total images: 61 COMPARISON: CT angio chest w abd pel w con 08/04/2021 3:51 PM FINDINGS: Liver: The liver is normal in echogenicity and configuration. No masses are detected. There is no intrahepatic biliary dilatation. 16.9 cm Liver length. Gallbladder: Mild gallbladder wall thickening measured between 0.4 and 0.8 cm. No sludge nor gallstones detected. No sonographic Bowman sign elicited. Common bile duct: Common bile duct diameter is 6 mm. Pancreas: The pancreas is partially visualized due to overlying bowel gas. No gross pathology is detected. Right kidney: 9.2 cm length of right kidney. Right kidney with normal echogenicity and no hydronephrosis, calculi, solid masses, nor perinephric fluid collection. Left kidney: 9.0 cm length of left kidney. Left kidney with normal echogenicity and no hydronephrosis, calculi, solid masses, nor perinephric fluid collection. Spleen: Spleen not visualized. Aorta: Infrarenal abdominal aortic aneurysm measured at 3.1 cm. Inferior vena cava: Normal. Portal venous: Spectral sonography demonstrates patent portal vein with hepatopedal blood flow. Normal respiratory phasicity on spectral waveform, indicating preserved compliance of the liver. No portal venous abnormality identified. Intraperitoneal space: There is a moderate amount of free intra-abdominal fluid. US/US abdomen complete* [id number] IMPRESSION: 1. There is a moderate amount of free intra-abdominal fluid. 2. Infrarenal abdominal aortic aneurysm measured at 3.1 cm. Follow-up imaging in 3 years is recommended. 3. Mild gallbladder wall thickening measured between 0.4 and 0.8 cm. No sludge nor gallstones detected. No sonographic Bowman sign reported by treatment technician. Radiation Dose CTDIVOL = (mGy): DLP = (mGy-cm)
--- NOTE | 2021-08-05 14:17 | USCV_ITS ---
Tyree Lemon Age: 81 Gender: M : 1940 Exam Date: 08/05/2021 06:49 Ordering Phys: Lyle Rollins MD Technologist: Exam Location: [facility] Indication: PULMONARY EDEMA BP: 123 / 73 HR: 79 Rhythm: Sinus Technical Quality: Adequate MEASUREMENTS (Male / Female) Normal Values 2D ECHO LV Diastolic Diameter PLAX 3.7 cm 4.2 - 5.9 / 3.9 - 5.3 cm LV Systolic Diameter PLAX 2.5 cm IVS Diastolic Thickness 1.0 cm 0.6 - 1.0 / 0.6 - 0.9 cm IVS Systolic Thickness 1.6 cm LVPW Diastolic Thickness 1.3 cm 0.6 - 1.0 / 0.6 - 0.9 cm LVPW Systolic Thickness 1.5 cm LVOT Diameter 2.0 cm LV Ejection Fraction 2D Teich 60.7 % LA Diameter 4.0 cm DOPPLER AV Peak Velocity 266.0 cm/s LVOT Peak Velocity 76.0 cm/s AV Area Cont Eq vti 0.9 cm squared AV Area Cont Eq pk 0.9 cm squared MV Area PHT 5.0 cm squared Mitral E to A Ratio 3.0 MV E' Velocity 73.0 cm/s TR Peak Velocity 339.3 cm/s TR Peak Gradient 46.1 mmHg TV Peak E Velocity 89.0 cm/s Right Atrial Pressure 15.0 mmHg Pulmonary Artery Systolic Pressu 61.1 mmHg FINDINGS Left Ventricle Normal left ventricular cavity size. Increased left ventricular wall thickness. Normal left ventricular systolic function. Left ventricular ejection fraction is estimated at 55 %. No regional wall motion abnormalities. Abnormal septal motion consistent with pacemaker. Right Ventricle Moderately dilated right ventricle with moderately decreased right ventricle systolic function. Pacemaker wire visualized in the right ventricle. Right ventricular systolic pressure 66 mmHg. Right Atrium Severely increased right atrial size. Right atrial pressure estimated at 15 mmHg. Left Atrium Severely increased left atrial size. Mitral Valve Moderately thickened mitral valve. Mild mitral valve regurgitation. Aortic Valve Aortic valve not well visualized. Aortic valve sclerosis without stenosis. No aortic valve regurgitation. Tricuspid Valve Structurally normal tricuspid valve. Possibly severe tricuspid valve regurgitation. Pulmonic Valve Pulmonic valve not well visualized. Pericardium No pericardial effusion. Ascites. Aorta Normal-sized aortic root. Dilated inferior vena cava with less than 50% respiratory variation. CONCLUSIONS 1. Normal left ventricular cavity size, mildly increased left ventricular wall thickness and normal left ventricular systolic function. Left ventricular ejection fraction is estimated at 55 %. No regional wall motion abnormalities. 2. Moderately dilated right ventricle with moderately decreased right ventricle systolic function. 3. Severe pulmonary hypertension with pulmonary artery pressure estimated at 66 mmHg. 4. Severe biatrial enlargement. 5. Possibly severe tricuspid valve regurgitation. 6. Mild mitral valve regurgitation. 7. When compared to previous echocardiogram dated 10/03/2017, right ventricular systolic function seems to have decreased and pulmonary artery pressure has increased. Brittaney Machuca MD (Electronically Signed) Final Date: 05 August 2021 14:24 S
--- NOTE | 2021-08-05 14:21 | PM.ACPR ---
Acute Procedures Central Line Placement^: Left IJ: Time out performed: Yes Patient placed on monitor/pulse ox: Yes MD prep: mask, gown and gloves Central line prep: Chlorhexidine scrub Local anesthesia used: lidocaine 1% Ultrasound used for placement: Yes Central line lumen inserted: triple Post procedure: sutured in place, good blood return, all ports aspirated, flushed, capped and sterile dressing applied Post procedure x-ray: tip of catheter in good position and no pneumothorax seen Patient tolerated procedure: well Complications: none
[2021-08-05] MEDS: pantoprazole 40 mg SDV IVP (18:02)
[2021-08-05] MEDS: hydrocortisone 100 mg/2 mL SDV 50 MG IVP (18:03)
[2021-08-05] MEDS: vancomycin 1,250 MG/250 ML PIGGYBACK 250 MG IV (20:29)
[2021-08-05 21:28] LABS: Anion Gap 14.3 (5-19); Blood Urea Nitrogen 38 mg/dL (8-23); Calcium 7.1 mg/dL (8.5-10.5); Carbon Dioxide 27 mmol/L (22-29); Chloride 98 mmol/L (98-107); Glucose 102 mg/dL (65-115); Osmolality Calculated 289 mOsm/kg (285-295); Potassium 4.3 mmol/L (3.5-5.1); Sodium 135 mmol/L (136-145)
[2021-08-06] VITALS (47 sets, daily range): BP systolic 102–138; BP diastolic 59–75; PULSE 55–68; RESP 15–20; TEMP 36.4–36.6; O2SAT 90–100
--- NOTE | 2021-08-06 04:19 | PC.NURSE ---
Pt assessed during bedside shift report. Pt on IV gtts, including - levophed, versed, and fentanyl. Still moderate amounts of kate red blood present with airway suction via ET tube. Temp pacer present, set at pulse rate of 60, with pacer spikes present on continuous telemetry monitoring. Unsuccessful attempts to wean levophed this shift, in order to maintain a MAP >65.
[2021-08-06] MEDS: pantoprazole 40 mg SDV IVP ×2 (04:39→15:53)
[2021-08-06] MEDS: piperacillin-tazobactam 3.375 GM in sodium chloride 0.9% (plus) 50 ML IV ×3 (04:39→20:30)
[2021-08-06] MEDS: norepinephrine 8 MG in dextrose 5 % 500 ML 22.86 MG IV (04:59)
[2021-08-06 05:21] LABS: Basophils % 0.2 %; Eosinophils % 0.5 %; Hematocrit 27.2 % (42.0-52.0); Hemoglobin 8.4 g/dL (11.7-16.6); Lymphocytes # 0.4 10^3/uL (0.8-4.8); Lymphocytes % 4.4 %; Mean Corpuscular HGB Conc 30.9 g/dL (30.0-36.0); Mean Corpuscular Hemoglobin 24.2 pg (28.0-34.0); Mean Corpuscular Volume 78.4 fl (80-94); Mean Platelet Volume 11.5 fL (7.4-10.4); Monocytes # 0.6 10^3/uL (0.2-0.9); Monocytes % 6.6 %; Neutrophils # 7.64 10^3/uL (1.8-7.7); Neutrophils % 88.1 %; Nucleated Red Blood Cells # 0.1 /100WBC; Nucleated Red Blood Cells % 0.7 %; Platelet Count 203 10^3/cmm (130-400); Red Blood Count 3.47 10^6/uL (4.1-5.3); Red Cell Distribution Width 19.8 % (12.1-15.1); White Blood Count 8.7 10^3/uL (4.0-10.0)
[2021-08-06] MEDS: vancomycin 1,500 MG/300 ML PIGGYBACK 200 MG IV (05:37)
[2021-08-06 05:59] LABS: Albumin Level 2.3 g/dL (3.5-5.2); Alkaline Phosphatase 134 IU/L (40-130); Anion Gap 13.9 (5-19); Blood Urea Nitrogen 36 mg/dL (8-23); Calcium 7.2 mg/dL (8.5-10.5); Carbon Dioxide 26 mmol/L (22-29); Chloride 98 mmol/L (98-107); Globulin 3.4 g/dL (1.3-4.6); Glucose 124 mg/dL (65-115); Osmolality Calculated 288 mOsm/kg (285-295); Potassium 3.9 mmol/L (3.5-5.1); Sodium 134 mmol/L (136-145); Total Bilirubin 2.3 mg/dL (0.15-1.2); Total Protein 5.7 g/dL (6.6-8.7)
[2021-08-06 06:10] LABS: Alanine Aminotransferase 950 U/L (0-41)
[2021-08-06 06:11] LABS: Aspartate Amino Transferase 1017 U/L (0-40)
--- NOTE | 2021-08-06 08:45 | XR_ITS ---
WS: [id number] Exam: XR chest 1V portable [id number] Date/Time of Exam: 08/06/2021 9:30 AM Reason For Exam: F/U Comparison 08/05/2021. There is increasing infiltrate and atelectasis in the mid and lower right lung since prior study. No pneumothorax is seen. Small right pleural effusion. Mild cardiac enlargement unchanged. An ET tube is in place in satisfactory position ending at about the level of T4. An enteric tube enters the stomac h but the tip is not visible. A left-sided IJ catheter ends in the lower one third of the SVC. An aor tic graft is in place in the aortic arch and descending aorta. XR/XR chest 1V portable [id number] IMPRESSION: 1. Increasing infiltrate and atelectasis in the mid and lower right lung since previous study. No other significant change. 2. ET tube, central line and enteric tube all appear to be in satisfactory loca tion.
--- NOTE | 2021-08-06 08:47 | XRR_ITS ---
PROCEDURE INFORMATION: Exam: XR Abdomen Exam date and time: 08/06/2021 8:47 AM Age: 81 years old Clinical indication: Other: Blood from oj; Patient HX: On vent; Additional info: Blood from oj, dialyzed through right femoral dialysis catheter TECHNIQUE: Imaging protocol: XR of the abdomen. Views: Frontal supine view of the abdomen. 1 View. COMPARISON: CT angio chest w abd pel w con 08/04/2021 3:51 PM FINDINGS: Tubes, catheters and devices: Feeding tube is in satisfactory position. Pacemaker lead noted. Bilateral femoral approach central lines noted. Gastrointestinal tract: Normal. No bowel dilation. Bones/joints: Mild dextrocurvature of the lumbar spine and multilevel degenerative changes seen. XR/XR KUB portable [id number] IMPRESSION: Nonobstructive bowel gas pattern. Radiation Dose CTDIVOL = (mGy): DLP = (mGy-cm)
--- NOTE | 2021-08-06 09:37 | PC.CHAP ---
Pastoral Care Encounter/Spiritual Assessment Type of Contact [] Declined practice lead visit [] Patient/Family/Request visit [] Outpatient visit [] Follow-up visit [] Physician referral [] Code/Alert [x] Routine visit [] Staff referral [] Actively dying [x] Patient sleeping [] Family support [] [] Out of room [] Palliative care [] [] Receiving care in room [] Pre-surgical visit [] Trauma [] Long length of stay [x] ICU visit [x] Other: vent Relational/Emotional Strength [] Patient feels connected with others/family/visitors/staff [] Distress [] Loneliness/isolation [] Abandonment Spirituality of Patient [] Person of Theresa [] Attends Latter Day of their Theresa [] Believes in Prayer [] Reads Bible or Shinto materials [] There are Spiritual issues to be addressed Residential Property Consultant Interventions [x] Prayer [] Active listening [] Non-anxious presence [] Spiritual/emotional support [] Crisis/trauma care [] Spiritual counseling [] Bereavement support [] Provided bereavement packet [] Provided Bible/devotional materials [] Provided toy/stuffed animal, coloring book to patient or family member [] Provided Communion [] Anointing/[place] [] Salvation [x] Completed spiritual assessment [] Other: Impact on Illness or Injury [] Angry [] Fearful [] Anxious [] Often cries [] Exhaustion [] Unable to work [] Unable to attend episcopalian [] Unable to walk/stand [] Unable to read [] Unable to drive [] Unable to eat/drink [] Unable to sleep [] Unable to be with family [] Patient intubated [] Other: Summary Time spent with patient
[2021-08-06 11:15] LABS: Estmated Average Glucose 91; Hemoglobin A1C 4.8 % (4.0-6.0)
[2021-08-06 13:25] LABS: Hematocrit 26.4 % (42.0-52.0); Hemoglobin 8.3 g/dL (11.7-16.6)
[2021-08-06 13:36] LABS: Partial Thromboplastin Time 39.3 SECONDS (23.9-36.7)
[2021-08-06 13:37] LABS: Fibrinogen 279 mg/dL (174-498)
[2021-08-06 13:47] LABS: D Dimer 6.33 ug/mIFEU (0-0.59)
[2021-08-06] MEDS: FUROsemide 10 mg/mL SDV 10mL 60 MG IVP (14:33)
--- NOTE | 2021-08-06 14:42 | P.PN_ITS ---
Subjective Subjective: Interval history: Mr. Lemon remains critically sick in the intensive care unit. He remains intubated with FiO2 35%, PEEP of 6. His urine output is now picking up nicely, creatinine is noted to be decreasing slightly. He still has diffuse peripheral edema and coarse Rales on lung examination. Medications: Reviewed: Yes Medication Review Details: Current Medications Acetaminophen (Acetaminophen 325 Mg Tablet) 650 mg PO Q6H PRN PRN Reason: Mild/Mod Pain Or Temp >/= 101 Atropine Sulfate (Atropine 1 Mg/Ml Sdv 1 Ml) 0.5 mg IVP PRN PRN PRN Reason: Symptomatic bradycardia Bisacodyl (Bisacodyl 5 Mg Tablet) 10 mg PO DAILY PRN; Protocol PRN Reason: Constipation (see protocol) Dextrose (Dextrose 50% Syringe 50 Ml) 25 ml IVP ONCE PRN; Protocol PRN Reason: hypoglycemia protocol Dextrose (Dextrose 50% Syringe 50 Ml) 50 ml IVP PRN PRN; Protocol PRN Reason: hypoglycemia protocol Glucagon (Glucagon 1 Mg/Ml Inj 1 Ml) 1 mg IM ONCE PRN; Protocol PRN Reason: Adult Acute Hypoglycemia Prot Dextrose (D5w) 500 mls @ 100 mls/hr IV ONCE PRN; Protocol PRN Reason: Adult Acute Hypoglycemia Prot Last Infusion: 08/04/21 18:16 Dose: 0 mls/hr Documented by: Insulin Human Regular 250 unit (/ Sodium Chloride) 252.5 mls @ 0 mls/hr IV .Q0M BALBIR; Protocol Last Titration: 08/04/21 18:16 Dose: 0 mls/hr, 0 mls/hr Documented by: Norepinephrine Bitartrate 4 mg (/ Dextrose) 254 mls @ 0 mls/hr IV .Q0M BALBIR; Protocol Propofol (Diprivan) 1,000 mg in 100 mls @ 0 mls/hr IV .Q0M BALBIR; Protocol Last Titration: 08/05/21 11:42 Dose: 8 mcg/kg/min, 5.01 mls/hr Documented by: Fentanyl 1,000 mcg/ Sodium (Chloride) 100 mls @ 0 mls/hr IV .Q0M BALBIR; Protocol Last Admin: 08/05/21 11:08 Dose: 25 mcg/hr, 2.5 mls/hr Documented by: Vancomycin/PEG/NADA/Lysine/Water (Vancocin) 1,500 mg in 300 mls @ 200 mls/hr IV Q36H BALBIR Last Admin: 08/04/21 19:54 Dose: Not Given Documented by: Piperacillin Sod/Tazobactam (Sod 3.375 gm/ Sodium Chloride) 50 mls @ 12.5 mls/hr IV Q8H BALBIR; Protocol Last Infusion: 08/05/21 06:44 Dose: Infused Documented by: Norepinephrine Bitartrate 8 mg (/ Dextrose) 508 mls @ 0 mls/hr IV .Q0M BALBIR; Protocol Last Titration: 08/05/21 11:28 Dose: 12 mcg/min, 45.72 mls/hr Documented by: Midazolam HCl 100 mg/ Sodium (Chloride) 100 mls @ 0 mls/hr IV .Q0M BALBIR; Protocol Last Admin: 08/05/21 11:10 Dose: 2 mg/hr, 2 mls/hr Documented by: Vancomycin/PEG/NADA/Lysine/Water (Vancocin) 1,250 mg in 250 mls @ 250 mls/hr IV Q24H BALBIR Magnesium Hydroxide (Magnesium Hydroxide 30 Ml Udc) 30 ml PO DAILY PRN PRN Reason: CONSTIPATION Naloxone HCl (Naloxone 0.4 Mg/Ml Sdv) 0.1 mg IVP Q2M PRN PRN Reason: RESPIRATORY RATE < 8/MIN Nitroglycerin (Nitroglycerin 0.4 Mg Sublingual Tablet) 0.4 mg SUBLINGUAL Q5M PRN PRN Reason: CHEST PAIN Ondansetron HCl (Ondansetron 2 Mg/Ml Sdv 2 Ml) 4 mg IVP Q8H PRN PRN Reason: vomiting, or N/V if npo Vitals/I&O/Wt Last Vital Signs Temp 97.7 F 08/06/21 08:00 Pulse 59 L 08/06/21 11:45 Resp 18 08/06/21 13:40 BP 121/68 08/06/21 11:45 Pulse Ox 100 08/06/21 13:40 08/05/21 08/06/21 08/06/21 22:59 06:59 14:59 Intake Total 631.966 / 1405.244 234.849 / 1640.093 196.050 / 196.050 Output Total 620 / 620 1310 / 1930 1100 / 1100 Balance 11.966 / 785.244 -1075.151 / -289.907 -903.950 / -903.950 Weight last 48 hrs Weight 81.1 kg Weight 79.605 kg Physical Exam Narrative: EXAM NARRATIVE: Constitutional: Sedated and vented HEENT: Wet mucosa, no jvp, non icteric Lungs: Bilaterally clear without discernible wheeze or rales in all lung zones CVS: S1 S2, no murmurs Abdo: Soft, BS ok Ext 4: 2-3+ edema, peripheral perfusion with no cyanosis Neurological: sedated Data : 08/06/21 13:10 08/06/21 03:25 Micro: Microbiology 08/04/21 12:43 Blood Culture - Preliminary Blood NEGATIVE TO DATE 08/04/21 13:10 Urine Culture - Final Urine,Clean Catch 08/04/21 12:38 Blood Culture - Preliminary Blood NEGATIVE TO DATE 08/04/21 12:25 Gram Stain - Final Sputum - Endotracheal Tube Aspirate Sputum Culture - Preliminary Gram Negative Rods A&P Additional A&P Information 1. Renal failure, critical hyperkalemia He presented with critical hyperkalemia with a potassium of 7 and bradycardic shock. Likely ischemic ATN Daily evaluation for need for hemodialysis; creatinine coming down and urine output is increasing; defer dialysis for now, but leave line for now also Daily renal panel, strict I's and O's Dose medication for GFR less than 15 on dialysis 2. Chemistry Labs look well balanced 3. Vent dependent respiratory failure Management per the ICU, weaning of ventilator over the next few days 4. Cardiogenic shock Bradycardic likely secondary to hyperkalemia Temp pacer in place per cardiology Vasopressor agents as needed 5. 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
--- NOTE | 2021-08-06 15:47 | CTR_ITS ---
PROCEDURE INFORMATION: Exam: CT Chest Without Contrast; Diagnostic Exam date and time: 08/06/2021 3:47 PM Age: 81 years old Clinical indication: Cough; Patient HX: PT on vent; Additional info: Hemoptysis, dah TECHNIQUE: Imaging protocol: Diagnostic computed tomography of the chest without contrast. Radiation optimization: All CT scans at this facility use at least one of these dose optimization techniques: automated exposure control; mA and/or kV adjustment per patient size (includes targeted exams where dose is matched to clinical indication); or iterative reconstruction. COMPARISON: CT angio chest w abd pel w con 08/04/2021 3:51 PM RADIATION DOSE METRICS: Total DLP (mGy-cm): 1029.76 FINDINGS: Tubes, catheters and devices: Endotracheal tube and enteric tube seen in place. Lungs: Bilateral dependent pneumonic infiltrates, other etiologies of airspace opacification not excluded. Two right middle lobe nodules again seen measuring 8 mm. Pleural spaces: Small bilateral pleural effusions, similar to prior exam. Heart: Coronary artery atherosclerotic calcifications. Aorta: Aortic graft seen in the thoracic aortic arch and descending aorta with an excluded descending thoracic aortic aneurysm, similar to prior exam. Lymph nodes: Unremarkable. No enlarged lymph nodes. Gallbladder and bile ducts: Biliary sludge. Bones/joints: Unremarkable. No acute fracture. Soft tissues: Small amount of ascites in the upper abdomen again seen. CT/CT chest wo con [id number] IMPRESSION: 1. Endotracheal tube and enteric tube seen in place. 2. Coronary artery atherosclerotic calcifications. 3. Small bilateral pleural effusions, similar to prior exam. 4. Bilateral dependent pneumonic infiltrates, other etiologies of airspace opacification not excluded. 5. Biliary sludge. 6. Aortic graft seen in the thoracic aortic arch and descending aorta with an excluded descending thoracic aortic aneurysm, similar to prior exam. 7. Two right middle lobe nodules again seen measuring 8 mm. For patients at low risk (minimal or absent history of smoking and of other known risk factors), recommend CT Chest at 3-6 months, then consider CT Chest at 18-24 months. For patients at high risk (history of smoking or of other known risk factors), recommend CT Chest at 3-6 months, then CT Chest at 18-24 months. (Reference: Genna) 8. Small amount of ascites in the upper abdomen again seen. REFERENCES: Genna Perez, et al. Guidelines for Management of Incidental Pulmonary Nodules Detected on CT Images: From the Fleischner Society 2017. Radiology. 2017;284(1):228-243. Radiation Dose CTDIVOL = (mGy): DLP = 1029.76 (mGy-cm)
--- NOTE | 2021-08-06 17:47 | P.PN_ITS ---
Subjective Subjective: Interval history: He underwent dialysis on admission. Medications: Reviewed: Yes Medication Review Details: Current Medications Acetaminophen (Acetaminophen 325 Mg Tablet) 650 mg PO Q6H PRN PRN Reason: Mild/Mod Pain Or Temp >/= 101 Atropine Sulfate (Atropine 1 Mg/Ml Sdv 1 Ml) 0.5 mg IVP PRN PRN PRN Reason: Symptomatic bradycardia Bisacodyl (Bisacodyl 5 Mg Tablet) 10 mg PO DAILY PRN; Protocol PRN Reason: Constipation (see protocol) Dextrose (Dextrose 50% Syringe 50 Ml) 25 ml IVP ONCE PRN; Protocol PRN Reason: hypoglycemia protocol Dextrose (Dextrose 50% Syringe 50 Ml) 50 ml IVP PRN PRN; Protocol PRN Reason: hypoglycemia protocol Glucagon (Glucagon 1 Mg/Ml Inj 1 Ml) 1 mg IM ONCE PRN; Protocol PRN Reason: Adult Acute Hypoglycemia Prot Dextrose (D5w) 500 mls @ 100 mls/hr IV ONCE PRN; Protocol PRN Reason: Adult Acute Hypoglycemia Prot Last Infusion: 08/04/21 18:16 Dose: 0 mls/hr Documented by: Insulin Human Regular 250 unit (/ Sodium Chloride) 252.5 mls @ 0 mls/hr IV .Q0M BALBIR; Protocol Last Titration: 08/04/21 18:16 Dose: 0 mls/hr, 0 mls/hr Documented by: Norepinephrine Bitartrate 4 mg (/ Dextrose) 254 mls @ 0 mls/hr IV .Q0M BALBIR; Protocol Propofol (Diprivan) 1,000 mg in 100 mls @ 0 mls/hr IV .Q0M BALBIR; Protocol Last Titration: 08/05/21 11:42 Dose: 8 mcg/kg/min, 5.01 mls/hr Documented by: Fentanyl 1,000 mcg/ Sodium (Chloride) 100 mls @ 0 mls/hr IV .Q0M BALBIR; Protocol Last Admin: 08/05/21 11:08 Dose: 25 mcg/hr, 2.5 mls/hr Documented by: Vancomycin/PEG/NADA/Lysine/Water (Vancocin) 1,500 mg in 300 mls @ 200 mls/hr IV Q36H BALBIR Last Admin: 08/04/21 19:54 Dose: Not Given Documented by: Piperacillin Sod/Tazobactam (Sod 3.375 gm/ Sodium Chloride) 50 mls @ 12.5 mls/hr IV Q8H BALBIR; Protocol Last Infusion: 08/05/21 06:44 Dose: Infused Documented by: Norepinephrine Bitartrate 8 mg (/ Dextrose) 508 mls @ 0 mls/hr IV .Q0M BALBIR; Protocol Last Titration: 08/05/21 11:28 Dose: 12 mcg/min, 45.72 mls/hr Documented by: Midazolam HCl 100 mg/ Sodium (Chloride) 100 mls @ 0 mls/hr IV .Q0M BALBIR; Protocol Last Admin: 08/05/21 11:10 Dose: 2 mg/hr, 2 mls/hr Documented by: Vancomycin/PEG/NADA/Lysine/Water (Vancocin) 1,250 mg in 250 mls @ 250 mls/hr IV Q24H BALBIR Magnesium Hydroxide (Magnesium Hydroxide 30 Ml Udc) 30 ml PO DAILY PRN PRN Reason: CONSTIPATION Naloxone HCl (Naloxone 0.4 Mg/Ml Sdv) 0.1 mg IVP Q2M PRN PRN Reason: RESPIRATORY RATE < 8/MIN Nitroglycerin (Nitroglycerin 0.4 Mg Sublingual Tablet) 0.4 mg SUBLINGUAL Q5M PRN PRN Reason: CHEST PAIN Ondansetron HCl (Ondansetron 2 Mg/Ml Sdv 2 Ml) 4 mg IVP Q8H PRN PRN Reason: vomiting, or N/V if npo Vitals/I&O/Wt Last Vital Signs Temp 97.7 F 08/06/21 08:00 Pulse 63 08/06/21 14:56 Resp 16 08/06/21 17:27 BP 121/68 08/06/21 11:45 Pulse Ox 95 08/06/21 17:27 08/06/21 08/06/21 08/06/21 06:59 14:59 22:59 Intake Total 234.849 / 1640.093 196.050 / 196.050 106.867 / 302.917 Output Total 1310 / 1930 1100 / 1100 1150 / 2250 Balance -1075.151 / -289.907 -903.950 / -903.950 -1043.133 / -1947.083 Weight last 48 hrs Weight 178 lb 12.718 oz Weight 175 lb 8 oz Physical Exam Narrative: EXAM NARRATIVE: GENERAL: Intubated and sedated, NECK: Right neck pressure dressing in place CARDIOVASCULAR SYSTEM: S1-S2 regular. paced RESPIRATORY SYSTEM: Chest clear to auscultation decreased at mid to basal lung junior ABDOMEN: Soft, nontender and nondistended. Normal bowel sounds present. EXTREMITIES: 1+edema. FUEL DISTRIBUTION SYSTEM OPERATOR: Patient intubated and sedated; GCS 10 T Data : 08/06/21 13:10 08/06/21 03:25 Micro: Microbiology 08/04/21 12:25 Gram Stain - Final Sputum - Endotracheal Tube Aspirate Sputum Culture - Final Proteus mirabilis esbl 08/04/21 12:43 Blood Culture - Preliminary Blood 08/04/21 13:10 Urine Culture - Final Urine,Clean Catch 08/04/21 12:38 Blood Culture - Preliminary Blood NEGATIVE TO DATE A&P Assessment and plan (1) Shock: Septic shock -Remains on broad-spectrum antibiotics -Requiring Levophed @ 4 Status: Acute (2) Bradycardia: Sinus bradycardia; intermittent high-grade AV block -Likely secondary to hyperkalemia -s/p transvenous temporary pacemaker placement; V rate decreased to 50 bpm; -Unsure if he was on high dose AV maria elena blockers at home -Heart rate sinus bradycardia in 50s to 60s with intermittent V paced rhythm Status: Acute (3) Hyperkalemia: He was on potassium as well as lisinopril at home all of which have been held on admission -Underwent 1 session of dialysis -Received Lasix this afternoon Status: Acute (4) CHF exacerbation: Normal LV function with moderately decreased right ventricular systolic function -s/p dialysis for hyperkalemia Status: Acute Qualifiers: Heart failure type: unspecified Qualified Code(s): I50.9 - Heart failure, unspecified (5) Atrial flutter: History of atrial flutter, was on metoprolol succinate 200 mg daily Cardizem 30 mg p.o. 4 times daily( when he was last seen in office in February 2021). -Unclear if he was taking it at home recently. -Remains in sinus rhythm -Off anticoagulation due to severe anemia Status: Acute Qualifiers: Atrial flutter type: unspecified Qualified Code(s): I48.92 - Unspecified atrial flutter Additional A&P Information Elevated troponin T: NSTEMI type II in setting of demand ischemia Nonocclusive PE noted in right lower lobe pulmonary artery on recent CT chest: Resolution on most recent CT Severe anemia: Received a unit of packed red blood cells yesterday [place]: Creatinine 1.6 now as compared to 2.7 on admission. History of lung cancer with recent recurrence on the CAT scan (enlarging spiculated right lower lobe pulmonary mass measuring 3.7 x 3.7 x 6.4 cm; enlarging suprahilar mass surrounding the right upper lobe bronchovascular structure) Acute respiratory failure: Remains intubated with FiO2 of 35% History of thoracic aortic aneurysm s/p endovascular repair. Recent history of GI bleed: Underwent EGD and was found to have ulcer per family; Eliquis was held for 2 weeks and then restarted Thank you for allowing me to participate in patient's care. Please feel free to call with questions or concerns. Attestations Medical Necessity Statement*: Remains critically ill Time Spent in Patient Care: 16 - 35 minutes (>than 50% of time spent in counselling and/or direct pt care on unit) . Coding Level of Care Code Acute High Value Associate for Malik Fwd Diagnoses Shock R57.9 Bradycardia R00.1 Hyperkalemia E87.5 CHF exacerbation I50.9 Heart failure type: unspecified Atrial flutter I48.92 Atrial flutter type: unspecified
--- NOTE | 2021-08-06 18:53 | PC.NURSE ---
Shift Note Frequent safety and comfort rounds continue. Orders and/or nursing care completed as indicated. Patient monitored for response to intervention and treatment(s). Education provided includes vent settings, medication education at administration, current plan of care and results from todays tests. Patient mechanically ventilated, Family at bedside- Gerard, verbalized understanding. Lung sounds are course and diminished, 2+ pitting edema in lower extremities. Levophed at 4mcg/min. Virsed at 1ml/hr. Fentanyl at 25mcg/hr. FIO2 35, PEEP 6 Temporary pacer rate set at 50.
--- NOTE | 2021-08-06 19:32 | PM.PN ---
Subjective Subjective: Interval history: Patient was seen this morning, remains intubated, mechanical ventilation, on 35% FiO2, afebrile overnight, on pressor support, remains on sedation, minimal, patient has bloody output from orogastric tube, remains sinus rhythm, no significant episodes of agitation overnight Vitals/I&O/Wt Last Vital Signs Temp 97.7 F 08/06/21 19:23 Pulse 57 L 08/06/21 19:23 Resp 16 08/06/21 19:23 BP 114/70 08/06/21 19:23 Pulse Ox 93 08/06/21 19:23 08/06/21 08/06/21 08/06/21 06:59 14:59 22:59 Intake Total 234.849 / 1640.093 196.050 / 196.050 106.867 / 302.917 Output Total 1310 / 1930 1100 / 1100 2150 / 3250 Balance -1075.151 / -289.907 -903.950 / -903.950 -2043.133 / -2947.083 Weight last 48 hrs Weight 81.1 kg Physical Exam Narrative: EXAM NARRATIVE: Has bloody output from orogastric tube Const: COMMON NORMALS: no acute distress Resp: COMMON NORMALS: normal respiratory effort, No retractions, No use of accessory muscles and clear to auscultation bilaterally AUSCULTATION: clear to auscultation bilaterally Cardio: COMMON NORMALS: regular rate, regular rhythm, S1 normal heart sound present and S2 normal heart sound present RATE: regular rate RHYTHM: regular rhythm HEART SOUNDS: S1 normal heart sound present and S2 normal heart sound present GI: COMMON NORMALS: Normal to inspection, nondistended, normoactive bowel sounds present, Soft to palpation and non-tender PALPATION: Yes Soft to palpation Extremity: COMMON NORMALS: no pedal edema OTHER: -Transvenous pacer left groin -Left central line in place, IJ -endotracheal tube in place -Enteric tube in place Data : 08/06/21 13:10 08/06/21 03:25 Micro: Microbiology 08/04/21 12:25 Gram Stain - Final Sputum - Endotracheal Tube Aspirate Sputum Culture - Final Proteus mirabilis esbl 08/04/21 12:43 Blood Culture - Preliminary Blood 08/04/21 13:10 Urine Culture - Final Urine,Clean Catch A&P Assessment and plan (1) Cardiogenic shock: Status: Acute (2) Bradycardia: Status: Acute (3) Hyperkalemia: Status: Acute (4) Renal failure: Status: Acute (5) Atrial flutter: Status: Acute (6) Sepsis: Status: Acute (7) Pneumonia: Status: Acute (8) Transaminitis: Status: Acute (9) Elevated troponin: Status: Acute (10) Lactic acidosis: Status: Acute (11) Metabolic acidosis: Status: Acute (12) Anemia: Status: Acute (13) COPD (chronic obstructive pulmonary disease): Status: Acute (14) Acute encephalopathy: Status: Acute (15) Hyperuricemia: Status: Acute (16) History of upper gastrointestinal bleeding: Recent EGD has shown gastritis: Eliquis was kept on hold for 2 weeks and was restarted. Continue Protonix 40 mg IV every 12 hours daily. Status: Acute (17) Liver cirrhosis: Cirrhotic appearing liver. On CT abdomen and pelvis: Status: Acute (18) Severe pulmonary hypertension: Status: Acute Additional A&P Information Acute respiratory failure, pneumonia, fluid overload -As below Shock multifactorial from sepsis, cardiogenic Cardiogenic shock secondary to symptomatic bradycardia, secondary to hyperkalemia, secondary to acute renal failure Septic shock, pneumonia Sputum culture showing Proteus ESBL, sensitive to Zosyn Plan: -Continue intubation, mechanical ventilation, minimize PEEP, minimize FiO2 -Propofol, fentanyl, Versed for sedation -Spontaneous breathing trials -Continue broad-spectrum antibiotic therapy, vancomycin, Zosyn -Continue Levophed, maintain MAP more than 65 Hemoptysis, hemoglobin stable at 8.4, possible diffuse alveolar hemorrhage, will do CT of the chest, status post 1 unit PRBC, start Solu-Medrol Bradycardia, sinus, intermittent high-grade AV block, likely secondary to hyperkalemia -Status post transvenous temporary pacemaker placement -Cardiology on consult Hyperkalemia, status post 1 session of dialysis -Has received Lasix this afternoon CHF exacerbation -With evidence of fluid overload -Repeat echocardiogram showed normal LV function, moderately decreased right ventricular systolic function -Status post hemodialysis -Receiving intermittent Lasix Transaminitis: Secondary to shock liver secondary to hypotension. Acute renal failure secondary to ischemic ATN. -Monitor creatinine -Nephrology consult -Status post hemodialysis on Friday Lactic acidosis secondary to acute hypotension and consequently hypoperfusion Elevated troponin likely type II OH Acute metabolic encephalopathy: Multifactorial from hypoglycemia, sepsis, shock, respiratory failure Anemia -Multifactorial from acute renal failure -He is having hemoptysis -Some component of DIC -Does have evidence of liver cirrhosis -Elevated INR, elevated fibrinogen, positive D-dimer -Status post 1 unit PRBC -Monitor hemoglobin Possible DIC, secondary to underlying pneumonia, acute respiratory failure, shock liver cirrhosis History of lung cancer, evidence of right lower lobe pulmonary mass measuring 3.7 x 3.7 x 6.4 cm Recent history of nonocclusive embolism in the right lower pulmonary artery, diagnosed 07/10/2021, not seen on repeat CT of the chest 08/04/2021, anticoagulation on hold given anemia as above Severe pulmonary hypertension Moderately dilated right ventricle with moderately decreased right ventricle systolic function. Severe pulmonary hypertension with pulmonary artery pressure estimated at 66 mmHg. Severe biatrial enlargement. Possibly severe tricuspid valve regurgitation. Mild mitral valve regurgitation. Hypoglycemia: Her blood sugars, as per protocol Patient is currently being dialyzed through right femoral dialysis catheter, patient also has temporary pacemaker through left femoral vein. Attestations Medical Necessity Statement*: Patient requires hospitalization for acute respiratory failure, shock, hemoptysis, bradycardia, hyperkalemia, CHF acute renal failure, anemia Coding Level of Care Code Acute Replenishment Analyst for [facility] Fwd Diagnoses Cardiogenic shock R57.0 Bradycardia R00.1 Hyperkalemia E87.5 Renal failure N19 Atrial flutter I48.92 Sepsis A41.9 Pneumonia J18.9 Transaminitis R74.01 Elevated troponin R77.8 Lactic acidosis E87.2 Metabolic acidosis E87.2 Anemia D64.9 COPD (chronic obstructive pulmonary disease) J44.9 Acute encephalopathy G93.40 Hyperuricemia E79.0 History of upper gastrointestinal bleeding Z87.19 Liver cirrhosis K74.60 Severe pulmonary hypertension I27.20
[2021-08-07] VITALS (82 sets, daily range): BP systolic 88–152; BP diastolic 54–101; PULSE 58–101; RESP 14–22; TEMP 36.4–36.5; O2SAT 90–100
[2021-08-07] MEDS: pantoprazole 40 mg SDV IVP ×2 (03:29→16:52)
[2021-08-07] MEDS: piperacillin-tazobactam 3.375 GM in sodium chloride 0.9% (plus) 50 ML IV ×3 (03:29→20:16)
[2021-08-07 04:46] LABS: ABG PCO2 44.1 mmHg (35-45); ABG PH Result 7.48 (7.35-7.45); Arterial Blood Gas Hematocrit 39.5 % (42-52); Base Excess ABG 8.4 mmol/L (-2.0-2.0); Blood Gas Allen Test Pos; Blood Gas Operator Identificat JB; Blood Gas Sample Site Radial, right; Blood Gas Sample Type Arterial; HCO3 ABG 32.9 mmol/L (22-26); Oxygen Device VENT; PO2 ABG 62.8 mmHg (80.0-100.0)
[2021-08-07 06:15] LABS: Eosinophils % 0.2 %; Hematocrit 27.7 % (42.0-52.0); Hemoglobin 8.8 g/dL (11.7-16.6); Lymphocytes # 0.3 10^3/uL (0.8-4.8); Lymphocytes % 4.2 %; Mean Corpuscular HGB Conc 31.8 g/dL (30.0-36.0); Mean Corpuscular Hemoglobin 24.4 pg (28.0-34.0); Mean Corpuscular Volume 76.9 fl (80-94); Mean Platelet Volume 11.8 fL (7.4-10.4); Monocytes # 0.1 10^3/uL (0.2-0.9); Monocytes % 1.7 %; Neutrophils # 5.96 10^3/uL (1.8-7.7); Neutrophils % 93.6 %; Nucleated Red Blood Cells % 0.5 %; Platelet Count 176 10^3/cmm (130-400); Red Cell Distribution Width 20.5 % (12.1-15.1); White Blood Count 6.4 10^3/uL (4.0-10.0)
[2021-08-07 06:37] LABS: Lactate (Lactic Acid level) 1.2 mmol/L (0.5-2.2)
[2021-08-07 06:42] LABS: Alanine Aminotransferase 636 U/L (0-41); Albumin Level 2.4 g/dL (3.5-5.2); Alkaline Phosphatase 121 IU/L (40-130); Anion Gap 15.1 (5-19); Aspartate Amino Transferase 382 U/L (0-40); Blood Urea Nitrogen 31 mg/dL (8-23); C Reactive Protein 90.5 mg/L (0.0-4.9); Calcium 7.6 mg/dL (8.5-10.5); Carbon Dioxide 27 mmol/L (22-29); Chloride 97 mmol/L (98-107); Globulin 3.7 g/dL (1.3-4.6); Glucose 108 mg/dL (65-115); Magnesium 1.7 mg/dL (1.7-2.3); Osmolality Calculated 289 mOsm/kg (285-295); Phosphorus 3.1 mg/dL (2.5-4.5); Potassium 3.1 mmol/L (3.5-5.1); Sodium 136 mmol/L (136-145); Total Bilirubin 3.1 mg/dL (0.15-1.2); Total Protein 6.1 g/dL (6.6-8.7)
[2021-08-07 06:50] LABS: INR 1.38 (0.8-1.2)
[2021-08-07 06:51] LABS: Fibrinogen 342 mg/dL (174-498); Partial Thromboplastin Time 40.8 SECONDS (23.9-36.7)
--- NOTE | 2021-08-07 07:00 | XRR_ITS ---
PROCEDURE INFORMATION: Exam: XR Chest Exam date and time: 08/07/2021 7:00 AM Age: 81 years old Clinical indication: Dyspnea; Additional info: SOB TECHNIQUE: Imaging protocol: XR of the chest. Views: 1 view. COMPARISON: CT chest con [id number] 08/06/2021 4:58 PM FINDINGS: Tubes, catheters and devices: Support tubes and lines are in good position. Lungs: Patchy opacity in the right lung may be secondary to atelectasis or pneumonia. Pleural spaces: Small right pleural effusion. Heart/Mediastinum: Unremarkable. No cardiomegaly. Vasculature: Stable aortic stent. Bones/joints: Unremarkable. XR/XR chest 1V portable [id number] IMPRESSION: 1. Support tubes and lines are in good position. 2. Small right pleural effusion. 3. Patchy opacity in the right lung may be secondary to atelectasis or pneumonia. Radiation Dose CTDIVOL = (mGy): DLP = (mGy-cm)
[2021-08-07 07:01] LABS: D Dimer 4.97 ug/mIFEU (0-0.59)
[2021-08-07 08:09] LABS: Slide Review Slide Review Perform
--- NOTE | 2021-08-07 08:10 | PC.NURSE ---
Shift Note Frequent safety and comfort rounds continue. Orders and/or nursing care completed as indicated. Patient monitored for response to intervention and treatment(s). Education provided includes[intubation with possible extubation, nutrition, skin integrity, and fall risk ]. Patient and/or sales representative cash registers [Family has been updated on pt's current status and plan of care]. Will continue to monitor. Received bed side shift report from off going nurse. Pt's plan of care reviewed. Pt resting in bed. Respirations are even and unlabored. No s/sx of distress noted. Pt appears to be resting comfortably. Pt is off sedation and is only on 15mcg of fentanyl at this time. Pt does respond to stimuli but becomes restless when awake. Pt has not opened his eyes for me or followed any commands yet. Bed in lowest and locked position, call light within reach, x's 3 rails up. Bed alarm on. Will continue to monitor.
[2021-08-07] MEDS: lidocaine 1% 5 ML in potassium chloride premix 100 ML 25 ML IV (08:30)
[2021-08-07] MEDS: vancomycin 1,250 MG/250 ML PIGGYBACK 250 MG IV (08:31)
[2021-08-07] MEDS: magnesium sulfate premix 2 GM/50 ML PIGGYBACK IV (08:31)
--- NOTE | 2021-08-07 09:20 | P.PN_ITS ---
Subjective Subjective: Interval history: remains intubated and sedated. UO 6L, -5.3 L; LOS-2.2L Medications: Reviewed: Yes Medication Review Details: Current Medications Acetaminophen (Acetaminophen 325 Mg Tablet) 650 mg PO Q6H PRN PRN Reason: Mild/Mod Pain Or Temp >/= 101 Atropine Sulfate (Atropine 1 Mg/Ml Sdv 1 Ml) 0.5 mg IVP PRN PRN PRN Reason: Symptomatic bradycardia Bisacodyl (Bisacodyl 5 Mg Tablet) 10 mg PO DAILY PRN; Protocol PRN Reason: Constipation (see protocol) Dextrose (Dextrose 50% Syringe 50 Ml) 25 ml IVP ONCE PRN; Protocol PRN Reason: hypoglycemia protocol Dextrose (Dextrose 50% Syringe 50 Ml) 50 ml IVP PRN PRN; Protocol PRN Reason: hypoglycemia protocol Dextrose (Dextrose 50% Syringe 50 Ml) 25 ml IVP ONCE PRN; Protocol PRN Reason: hypoglycemia protocol Dextrose (Dextrose 50% Syringe 50 Ml) 50 ml IVP PRN PRN; Protocol PRN Reason: hypoglycemia protocol Glucagon (Glucagon 1 Mg/Ml Inj 1 Ml) 1 mg IM ONCE PRN; Protocol PRN Reason: Adult Acute Hypoglycemia Prot Glucagon (Glucagon 1 Mg/Ml Inj 1 Ml) 1 mg IM ONCE PRN; Protocol PRN Reason: Adult Acute Hypoglycemia Prot. Dextrose (D5w) 500 mls @ 100 mls/hr IV ONCE PRN; Protocol PRN Reason: Adult Acute Hypoglycemia Prot Last Infusion: 08/04/21 18:16 Dose: 0 mls/hr Documented by: Norepinephrine Bitartrate 4 mg (/ Dextrose) 254 mls @ 0 mls/hr IV .Q0M [place]; Protocol Propofol (Diprivan) 1,000 mg in 100 mls @ 0 mls/hr IV .Q0M [place]; Protocol Last Titration: 08/05/21 15:13 Dose: 0 mcg/kg/min, 0 mls/hr Documented by: Fentanyl 1,000 mcg/ Sodium (Chloride) 100 mls @ 0 mls/hr IV .Q0M [place]; Protocol Last Titration: 08/07/21 06:39 Dose: 15 mcg/hr, 1.5 mls/hr Documented by: Piperacillin Sod/Tazobactam (Sod 3.375 gm/ Sodium Chloride) 50 mls @ 12.5 mls/hr IV Q8H [place]; Protocol Last Infusion: 08/07/21 08:02 Dose: Infused Documented by: Norepinephrine Bitartrate 8 mg (/ Dextrose) 508 mls @ 0 mls/hr IV .Q0M [place]; Protocol Last Titration: 08/07/21 06:22 Dose: 1 mcg/min, 3.81 mls/hr Documented by: Midazolam HCl 100 mg/ Sodium (Chloride) 100 mls @ 0 mls/hr IV .Q0M [place]; Protocol Last Titration: 08/07/21 06:30 Dose: 0 mg/hr, 0 mls/hr Documented by: Dextrose (D5w) 500 mls @ 100 mls/hr IV ONCE PRN; Protocol PRN Reason: Adult Acute Hypoglycemia Prot Vancomycin/PEG/[place]/Lysine/Water (Vancocin) 1,250 mg in 250 mls @ 250 mls/hr IV Q24H [facility] Last Admin: 08/07/21 08:31 Dose: 250 mls/hr Documented by: Lidocaine HCl 5 ml/ Potassium (Chloride) 105 mls @ 25 mls/hr IV ONCE ONE Stop: 08/07/21 12:14 Last Admin: 08/07/21 08:30 Dose: 25 mls/hr Documented by: Magnesium Hydroxide (Magnesium Hydroxide 30 Ml Udc) 30 ml PO DAILY PRN PRN Reason: CONSTIPATION Methylprednisolone Sodium Succinate (Methylprednisolone Sod Succ 125 Mg/2 Ml Inj) 125 mg IVP Q12H [facility] Last Admin: 08/07/21 08:30 Dose: 125 mg Documented by: Naloxone HCl (Naloxone 0.4 Mg/Ml Sdv) 0.1 mg IVP Q2M PRN PRN Reason: RESPIRATORY RATE < 8/MIN Nitroglycerin (Nitroglycerin 0.4 Mg Sublingual Tablet) 0.4 mg SUBLINGUAL Q5M PRN PRN Reason: CHEST PAIN Ondansetron HCl (Ondansetron 2 Mg/Ml Sdv 2 Ml) 4 mg IVP Q8H PRN PRN Reason: vomiting, or N/V if npo Pantoprazole Sodium (Pantoprazole 40 Mg Sdv) 40 mg IVP Q12H [facility] Last Admin: 08/07/21 03:29 Dose: 40 mg Documented by: Vitals/I&O/Wt Last Vital Signs Temp 97.7 F 08/07/21 07:54 Pulse 68 08/07/21 07:54 Resp 16 08/07/21 08:14 BP 116/69 08/07/21 07:54 Pulse Ox 99 08/07/21 08:14 08/06/21 08/07/21 08/07/21 22:59 06:59 14:59 Intake Total 190.242 / 386.292 371.869 / 758.161 800 / 800 Output Total 2150 / 3250 2850 / 6100 Balance -1959.758 / -2863.708 -2478.131 / -5341.839 800 / 800 Physical Exam Narrative: EXAM NARRATIVE: GENERAL: Intubated and sedated, NECK: Right neck pressure dressing in place CARDIOVASCULAR SYSTEM: S1-S2 regular. paced RESPIRATORY SYSTEM: Chest clear to auscultation decreased at mid to basal lung junior ABDOMEN: Soft, nontender and mildly distended. Normal bowel sounds present. EXTREMITIES: 1+edema. PRINCIPAL TECHNICAL WRITER: Patient intubated and sedated; GCS 10 T Data : 08/07/21 05:00 08/07/21 05:00 Micro: Microbiology 08/04/21 12:25 Gram Stain - Final Sputum - Endotracheal Tube Aspirate Sputum Culture - Final Proteus mirabilis esbl 08/04/21 12:43 Blood Culture - Preliminary Blood 08/04/21 13:10 Urine Culture - Final Urine,Clean Catch A&P Assessment and plan (1) Shock: -Cardiogenic/Septic -resolved -Remains on broad-spectrum antibiotics -off levophed. Status: Acute (2) Bradycardia: Sinus bradycardia; intermittent high-grade AV block -Likely secondary to hyperkalemia -s/p transvenous temporary pacemaker placement; V rate decreased to 40 bpm; -Unsure if he was on high dose AV maria elena blockers at home -remains in SR with HR in 60-70's today. Status: Acute (3) Hyperkalemia: He was on potassium as well as lisinopril at home all of which have been held on admission -Underwent 1 session of dialysis -resolved Status: Acute (4) CHF exacerbation: Normal LV function with moderately decreased right ventricular systolic function and severe TR -Received Lasix yesterday with robust UO. -based on UO this morning will decide on lasix this afternoon Status: Acute Qualifiers: Heart failure type: unspecified Qualified Code(s): I50.9 - Heart failure, unspecified (5) Atrial flutter: History of atrial flutter, was on metoprolol succinate 200 mg daily Cardizem 30 mg p.o. 4 times daily( when he was last seen in office in February 2021). -Unclear if he was taking it at home recently. -Remains in sinus rhythm -Off anticoagulation due to severe anemia Status: Acute Qualifiers: Atrial flutter type: unspecified Qualified Code(s): I48.92 - Unspecified atrial flutter Additional A&P Information Elevated troponin T: NSTEMI type II in setting of demand ischemia Nonocclusive PE noted in right lower lobe pulmonary artery on recent CT chest: Resolution on most recent CT Severe anemia: Received a unit of packed red blood cells yesterday [place]: Creatinine 1.6 now as compared to 2.7 on admission. History of lung cancer with recent recurrence on the CAT scan (enlarging spiculated right lower lobe pulmonary mass measuring 3.7 x 3.7 x 6.4 cm; enlarging suprahilar mass surrounding the right upper lobe bronchovascular structure) Acute respiratory failure: Remains intubated with FiO2 of 35% History of thoracic aortic aneurysm s/p endovascular repair. Recent history of GI bleed: Underwent EGD and was found to have ulcer per family; Eliquis was held for 2 weeks and then restarted Thank you for allowing me to participate in patient's care. Please feel free to call with questions or concerns. Attestations Medical Necessity Statement*: Remains critically ill Time Spent in Patient Care: 16 - 35 minutes (>than 50% of time spent in counselling and/or direct pt care on unit) . Coding Level of Care Code Acute Simulation Developer for g Fwd Diagnoses Shock R57.9 Bradycardia R00.1 Hyperkalemia E87.5 CHF exacerbation I50.9 Heart failure type: unspecified Atrial flutter I48.92 Atrial flutter type: unspecified
--- NOTE | 2021-08-07 09:29 | PC.SOCIAL ---
IMM Update Pg. 2 of IMM updated. Copy left at bedside for patient's son. Not anticipated to discharge within the next 48hours.
[2021-08-07 10:49] LABS: NT Pro B Type Natriuretic Pept 1532 pg/mL (0-450)
[2021-08-07 11:02] LABS: Creatine Phosphokinase 38 U/L (39-308)
--- NOTE | 2021-08-07 11:53 | P.PN_ITS ---
Subjective Subjective: Interval history: Remain sick in the icu, vented. Vent settings improving. Off pressors. HR 60-70, pacing catching at 50. Good urine output. Lasix given yesterday. Medications: Reviewed: Yes Medication Review Details: Current Medications Acetaminophen (Acetaminophen 325 Mg Tablet) 650 mg PO Q6H PRN PRN Reason: Mild/Mod Pain Or Temp >/= 101 Atropine Sulfate (Atropine 1 Mg/Ml Sdv 1 Ml) 0.5 mg IVP PRN PRN PRN Reason: Symptomatic bradycardia Bisacodyl (Bisacodyl 5 Mg Tablet) 10 mg PO DAILY PRN; Protocol PRN Reason: Constipation (see protocol) Dextrose (Dextrose 50% Syringe 50 Ml) 25 ml IVP ONCE PRN; Protocol PRN Reason: hypoglycemia protocol Dextrose (Dextrose 50% Syringe 50 Ml) 50 ml IVP PRN PRN; Protocol PRN Reason: hypoglycemia protocol Dextrose (Dextrose 50% Syringe 50 Ml) 25 ml IVP ONCE PRN; Protocol PRN Reason: hypoglycemia protocol Dextrose (Dextrose 50% Syringe 50 Ml) 50 ml IVP PRN PRN; Protocol PRN Reason: hypoglycemia protocol Glucagon (Glucagon 1 Mg/Ml Inj 1 Ml) 1 mg IM ONCE PRN; Protocol PRN Reason: Adult Acute Hypoglycemia Prot Glucagon (Glucagon 1 Mg/Ml Inj 1 Ml) 1 mg IM ONCE PRN; Protocol PRN Reason: Adult Acute Hypoglycemia Prot. Dextrose (D5w) 500 mls @ 100 mls/hr IV ONCE PRN; Protocol PRN Reason: Adult Acute Hypoglycemia Prot Last Infusion: 08/04/21 18:16 Dose: 0 mls/hr Documented by: Norepinephrine Bitartrate 4 mg (/ Dextrose) 254 mls @ 0 mls/hr IV .Q0M [place]; Protocol Propofol (Diprivan) 1,000 mg in 100 mls @ 0 mls/hr IV .Q0M [facility]; Protocol Last Titration: 08/05/21 15:13 Dose: 0 mcg/kg/min, 0 mls/hr Documented by: Fentanyl 1,000 mcg/ Sodium (Chloride) 100 mls @ 0 mls/hr IV .Q0M [facility]; Protocol Last Titration: 08/07/21 06:39 Dose: 15 mcg/hr, 1.5 mls/hr Documented by: Piperacillin Sod/Tazobactam (Sod 3.375 gm/ Sodium Chloride) 50 mls @ 12.5 mls/hr IV Q8H [facility]; Protocol Last Infusion: 08/07/21 08:02 Dose: Infused Documented by: Norepinephrine Bitartrate 8 mg (/ Dextrose) 508 mls @ 0 mls/hr IV .Q0M [facility]; Protocol Last Titration: 08/07/21 06:22 Dose: 1 mcg/min, 3.81 mls/hr Documented by: Midazolam HCl 100 mg/ Sodium (Chloride) 100 mls @ 0 mls/hr IV .Q0M [facility]; Protocol Last Titration: 08/07/21 06:30 Dose: 0 mg/hr, 0 mls/hr Documented by: Dextrose (D5w) 500 mls @ 100 mls/hr IV ONCE PRN; Protocol PRN Reason: Adult Acute Hypoglycemia Prot Vancomycin/PEG/[place]/Lysine/Water (Vancocin) 1,250 mg in 250 mls @ 250 mls/hr IV Q24H [facility] Last Admin: 08/07/21 08:31 Dose: 250 mls/hr Documented by: Lidocaine HCl 5 ml/ Potassium (Chloride) 105 mls @ 25 mls/hr IV ONCE ONE Stop: 08/07/21 12:14 Last Admin: 08/07/21 08:30 Dose: 25 mls/hr Documented by: Magnesium Hydroxide (Magnesium Hydroxide 30 Ml Udc) 30 ml PO DAILY PRN PRN Reason: CONSTIPATION Methylprednisolone Sodium Succinate (Methylprednisolone Sod Succ 125 Mg/2 Ml Inj) 125 mg IVP Q12H [facility] Last Admin: 08/07/21 08:30 Dose: 125 mg Documented by: Naloxone HCl (Naloxone 0.4 Mg/Ml Sdv) 0.1 mg IVP Q2M PRN PRN Reason: RESPIRATORY RATE < 8/MIN Nitroglycerin (Nitroglycerin 0.4 Mg Sublingual Tablet) 0.4 mg SUBLINGUAL Q5M PRN PRN Reason: CHEST PAIN Ondansetron HCl (Ondansetron 2 Mg/Ml Sdv 2 Ml) 4 mg IVP Q8H PRN PRN Reason: vomiting, or N/V if npo Pantoprazole Sodium (Pantoprazole 40 Mg Sdv) 40 mg IVP Q12H [facility] Last Admin: 08/07/21 03:29 Dose: 40 mg Documented by: Vitals/I&O/Wt Last Vital Signs Temp 97.7 F 08/07/21 07:54 Pulse 68 08/07/21 07:54 Resp 14 08/07/21 11:05 BP 116/69 08/07/21 07:54 Pulse Ox 98 08/07/21 11:05 08/06/21 08/07/21 08/07/21 22:59 06:59 14:59 Intake Total 190.242 / 386.292 371.869 / 882.569 2995.319 / 1112.319 Output Total 2150 / 3250 2850 / 6100 Balance -1959.758 / -2863.708 -2478.131 / -5341.839 1112.319 / 1112.319 Physical Exam Narrative: EXAM NARRATIVE: Constitutional: Sedated and vented HEENT: Wet mucosa, no jvp, non icteric Lungs: Bilaterally clear without discernible wheeze or rales in all lung zones CVS: S1 S2, no murmurs Abdo: Soft, BS ok Ext 4: 2-3+ edema, peripheral perfusion with no cyanosis Neurological: sedated Data : 08/07/21 05:00 08/07/21 05:00 Micro: Microbiology 08/04/21 12:25 Gram Stain - Final Sputum - Endotracheal Tube Aspirate Sputum Culture - Final Proteus mirabilis esbl 08/04/21 12:43 Blood Culture - Preliminary Blood 08/04/21 13:10 Urine Culture - Final Urine,Clean Catch A&P Additional A&P Information 1. Renal failure, critical hyperkalemia Resolving now. Remove dialysis catheter today Daily renal panel, strict I's and O's Dose medication for GFR less than 15 on dialysis 2. Chemistry HypoK being replaced 3. Vent dependent respiratory failure Management per the ICU, weaning of ventilator over the next few days 4. Cardiogenic shock Bradycardic likely secondary to hyperkalemia Temp pacer in place per cardiology Vasopressor agents as needed 5. Anemia S/p PRBCs, close monitoring of H/H Acute renal issues now resolved, will sign off at this time Exam and interview performed with aid of bedside RN using telemedicine Time spent 20 min inc > 50% of time in face to face counseling Parker Pérez MD [facility] [phone] Attestations Medical Necessity Statement*: Eval for [place] Coding Level of Care Code Acute Diamond Cleaner for Chg Fwd
[2021-08-07] MEDS: FUROsemide 10 mg/mL SDV 2mL 20 MG IVP (12:03)
--- NOTE | 2021-08-07 14:29 | PC.RESP ---
extubated pt self extubated
--- NOTE | 2021-08-07 17:39 | ECG_ITS ---
[facility] Test Date: 2021-08-07 Pat Name: Tyree Lemon Department: Room: ICU11 Gender: Male Sports Athletic Trainer: : 1940 Requested By: Brittaney Machuca Order Number: [id number] Meagan MD: Tracee Ortiz M.D. Measurements Intervals [place] Rate: 86 P: [place]: QRS: 7 QRSD: 92 T: 266 QT: 356 QTc: 426 Interpretive Statements ATRIAL FIBRILLATION WITH ABERRANT CONDUCTION OR VENTRICULAR PREMATURE COMPLEXES ST DEVIATION AND MODERATE T-WAVE ABNORMALITY, CONSIDER INFERIOR ISCHEMIA [-0.1+ mV T-WAVE IN II/aVF] Compared to ECG 08/04/2021 18:07:37 Ventricular premature complex(es) now present Aberrant conduction of supraventricular beat(s) now present T-wave abnormality now present Possible ischemia now present Ventricular-paced complex(es) or rhythm no longer present Electronically Signed On 08-07-2021 21:57:05 HARNESS PLACER by Tracee Ortiz M.D. [id number]
--- NOTE | 2021-08-07 19:40 | P.PN_ITS ---
Subjective Subjective: Interval history: Patient was seen multiple times throughout the day Early in the morning, his sedation was being weaned down, on minimal sedation, he did follow commands, did squeeze my finger, he had minimal bloody output from his ET tube, slight pink-tinged, minimal, he was seen by nephrology service, recommended removing dialysis catheter, patient was reexamined, was doing well with a spontaneous breathing trials, plan was extubation later on in the afternoon, patient self extubated early in the afternoon, was seen, saturating in the high 90s on 2 L, he followed commands, squeezing my fingers, he bounced to be that he was doing okay, Vitals/I&O/Wt Last Vital Signs Temp 97.7 F 08/07/21 19:28 Pulse 97 08/07/21 19:28 Resp 18 08/07/21 19:28 BP 152/94 08/07/21 19:28 Pulse Ox 99 08/07/21 19:28 08/07/21 08/07/21 08/07/21 06:59 14:59 22:59 Intake Total 371.869 / 861.654 0094.344 / 1228.344 50 / 1278.344 Output Total 2850 / 6100 1850 / 1850 Balance -2478.131 / -5341.839 1228.344 / 1228.344 -1800 / -571.656 Physical Exam Const: COMMON NORMALS: no acute distress ORIENTATION/CONSCIOUSNESS: Yes awake and Yes oriented to person; not oriented to place and not oriented to time Resp: COMMON NORMALS: normal respiratory effort, No retractions and No use of accessory muscles AUSCULTATION: crackles Cardio: COMMON NORMALS: regular rate, regular rhythm, S1 normal heart sound present and S2 normal heart sound present RATE: regular rate RHYTHM: regular rhythm HEART SOUNDS: S1 normal heart sound present and S2 normal heart sound present GI: COMMON NORMALS: Normal to inspection, nondistended, normoactive bowel sounds present, Soft to palpation and non-tender PALPATION: Yes Soft to palpation Extremity: COMMON NORMALS: no pedal edema OTHER: -Transvenous pacer left groin -Left central line in place, IJ Neuro: SENSORIUM/ORIENTATION: Yes oriented to person, No oriented to place and No oriented to time Data : 08/07/21 05:00 08/07/21 05:00 Micro: Microbiology 08/04/21 12:43 Blood Culture - Preliminary Blood Staphylococcus sp coag neg 08/04/21 12:25 Gram Stain - Final Sputum - Endotracheal Tube Aspirate Sputum Culture - Final Proteus mirabilis esbl A&P Assessment and plan (1) Cardiogenic shock: Status: Acute (2) Bradycardia: Status: Acute (3) Hyperkalemia: Status: Acute (4) Renal failure: Status: Acute (5) Atrial flutter: Status: Acute (6) Sepsis: Status: Acute (7) Pneumonia: Status: Acute (8) Transaminitis: Status: Acute (9) Elevated troponin: Status: Acute (10) Lactic acidosis: Status: Acute (11) Metabolic acidosis: Status: Acute (12) Anemia: Status: Acute (13) COPD (chronic obstructive pulmonary disease): Status: Acute (14) Acute encephalopathy: Status: Acute (15) Hyperuricemia: Status: Acute (16) History of upper gastrointestinal bleeding: Recent EGD has shown gastritis: Eliquis was kept on hold for 2 weeks and was restarted. Continue Protonix 40 mg IV every 12 hours daily. Status: Acute (17) Liver cirrhosis: Cirrhotic appearing liver. On CT abdomen and pelvis: Status: Acute (18) Severe pulmonary hypertension: Status: Acute Additional A&P Information Acute respiratory failure, pneumonia, fluid overload -As below Shock multifactorial from sepsis, cardiogenic Cardiogenic shock secondary to symptomatic bradycardia, secondary to hyperkalemia, secondary to acute renal failure Septic shock, pneumonia Sputum culture showing Proteus ESBL, sensitive to Zosyn Status post self extubation 08/07/2021, currently on 2 L, saturating high 90s Plan: -Continue oxygen therapy -Monitor respiratory status closely -PT OT -Continue broad-spectrum antibiotic therapy, vancomycin, Zosyn Hemoptysis, hemoglobin stable at 8.8, possible diffuse alveolar hemorrhage, quite minimal this morning slight pink frothy discharge from ET tube, status post 1 unit PRBC, continue Solu-Medrol, continue to monitor Bradycardia, sinus, intermittent high-grade AV block, likely secondary to hyperkalemia -Status post transvenous temporary pacemaker placement -Cardiology on consult Hyperkalemia, status post 1 session of dialysis -Has received Lasix this afternoon CHF exacerbation -With evidence of fluid overload -Repeat echocardiogram showed normal LV function, moderately decreased right ventricular systolic function -Status post hemodialysis, discontinue HD cath -Receiving intermittent Lasix Transaminitis: Secondary to shock liver secondary to hypotension. Acute renal failure secondary to ischemic ATN. -Monitor creatinine -Nephrology consult -Remove HD cath Lactic acidosis secondary to acute hypotension and consequently hypoperfusion Elevated troponin likely type II UT Acute metabolic encephalopathy: Multifactorial from hypoglycemia, sepsis, shock, respiratory failure Anemia -Multifactorial from acute renal failure -He is having hemoptysis -Some component of DIC -Does have evidence of liver cirrhosis -Elevated INR, elevated fibrinogen, positive D-dimer -Status post 1 unit PRBC -Monitor hemoglobin Possible DIC, secondary to underlying pneumonia, acute respiratory failure, sh ock liver cirrhosis History of lung cancer, evidence of right lower lobe pulmonary mass measuring 3 .7 x 3.7 x 6.4 cm Recent history of nonocclusive embolism in the right lower pulmonary artery, diagnosed 07/10/2021, not seen on repeat CT of the chest 08/04/2021, anticoagulation on hold given anemia as above Severe pulmonary hypertension Moderately dilated right ventricle with moderately decreased right ventricle systolic function. Severe pulmonary hypertension with pulmonary artery pressure estimated at 66 mmHg. Severe biatrial enlargement. Possibly severe tricuspid valve regurgitation. Mild mitral valve regurgitation. Hypoglycemia: Her blood sugars, as per protocol Attestations Medical Necessity Statement*: Patient requires hospitalization for acute respiratory failure, shock, sinus bradycardia Coding Level of Care Code Acute [facility] [employer] Assembler for g Fwd Diagnoses Cardiogenic shock R57.0 Bradycardia R00.1 Hyperkalemia E87.5 Renal failure N19 Atrial flutter I48.92 Sepsis A41.9 Pneumonia J18.9 Transaminitis R74.01 Elevated troponin R77.8 Lactic acidosis E87.2 Metabolic acidosis E87.2 Anemia D64.9 COPD (chronic obstructive pulmonary disease) J44.9 Acute encephalopathy G93.40 Hyperuricemia E79.0 History of upper gastrointestinal bleeding Z87.19 Liver cirrhosis K74.60 Severe pulmonary hypertension I27.20
[2021-08-08] VITALS (93 sets, daily range): BP systolic 100–154; BP diastolic 54–110; PULSE 71–183; RESP 12–37; TEMP 36.4–36.7; O2SAT 90–100
[2021-08-08 01:53] LABS: Urine Appearance Clear (CLEAR); Urine Color Yellow (Yellow)
[2021-08-08 01:54] LABS: Add Urine Microscopic? YES; Bilirubin Urine Neg (Negative); Blood Urine 2+ (Negative); Glucose Urine UA Norm (Normal); Ketones Urine Negative (Negative); Leukocyte Esterase Urine Negative (Negative); Nitrate Urine Negative (Negative); Protein Urine Neg (Negative); Urobilinogen Urine Norm (Negative); pH Urine 6.5 (5-7)
[2021-08-08 01:55] LABS: WBC Urine RARE /hpf (0-5)
[2021-08-08 01:56] LABS: Add Urine Culture? Yes
[2021-08-08 01:58] LABS: Creatinine Urine, Random 23 mg/dL (39-259)
[2021-08-08 02:00] LABS: Charge for UA Resulting for Rev
[2021-08-08 02:03] LABS: Urine Creatinine 22 mg/dL (39-259); Urine Random Sodium 90 mmol/L
[2021-08-08 02:05] LABS: UPRO/UCREAT Ratio 0.95 mg/mg CR; Urine Protein Random 21 mg/dL
[2021-08-08] MEDS: piperacillin-tazobactam 3.375 GM in sodium chloride 0.9% (plus) 50 ML IV ×3 (03:41→19:57)
[2021-08-08] MEDS: pantoprazole 40 mg SDV IVP ×2 (03:41→16:07)
[2021-08-08 05:01] LABS: Alanine Aminotransferase 475 U/L (0-41); Albumin Level 2.6 g/dL (3.5-5.2); Alkaline Phosphatase 119 IU/L (40-130); Anion Gap 17.7 (5-19); Aspartate Amino Transferase 188 U/L (0-40); Blood Urea Nitrogen 29 mg/dL (8-23); C Reactive Protein 54.8 mg/L (0.0-4.9); Calcium 7.7 mg/dL (8.5-10.5); Carbon Dioxide 27 mmol/L (22-29); Chloride 98 mmol/L (98-107); Globulin 3.7 g/dL (1.3-4.6); Glucose 109 mg/dL (65-115); Osmolality Calculated 296 mOsm/kg (285-295); Phosphorus 2.6 mg/dL (2.5-4.5); Sodium 140 mmol/L (136-145); Total Bilirubin 2.9 mg/dL (0.15-1.2); Total Protein 6.3 g/dL (6.6-8.7)
[2021-08-08 05:02] LABS: Partial Thromboplastin Time 36.6 SECONDS (23.9-36.7)
[2021-08-08 05:03] LABS: Fibrinogen 304 mg/dL (174-498)
[2021-08-08 05:04] LABS: Hematocrit 29.2 % (42.0-52.0); Lymphocytes # 0.3 10^3/uL (0.8-4.8); Lymphocytes % 4.6 %; Mean Corpuscular HGB Conc 30.8 g/dL (30.0-36.0); Mean Corpuscular Hemoglobin 23.9 pg (28.0-34.0); Mean Corpuscular Volume 77.7 fl (80-94); Monocytes # 0.4 10^3/uL (0.2-0.9); Monocytes % 5.8 %; Neutrophils # 6.56 10^3/uL (1.8-7.7); Neutrophils % 89.2 %; Nucleated Red Blood Cells % 0.4 %; Platelet Count 187 10^3/cmm (130-400); Red Blood Count 3.76 10^6/uL (4.1-5.3); Red Cell Distribution Width 21.1 % (12.1-15.1); White Blood Count 7.4 10^3/uL (4.0-10.0)
[2021-08-08 05:05] LABS: Potassium 2.7 mmol/L (3.5-5.1)
[2021-08-08 05:11] LABS: NT Pro B Type Natriuretic Pept 2830 pg/mL (0-450); Procalcitonin 1.19 ng/mL (0-0.5)
[2021-08-08 05:13] LABS: D Dimer 7.12 ug/mIFEU (0-0.59)
[2021-08-08 05:24] LABS: Creatine Phosphokinase 47 U/L (39-308)
[2021-08-08] MEDS: potassium chloride premix 100 ML 25 MEQ IV (05:30)
--- NOTE | 2021-08-08 05:43 | PC.NURSE ---
Pt no longer on fentanyl and versed gtts. Wasted 15 cc of fentanyl and 75 cc of versed, with unit RN.
[2021-08-08 07:02] LABS: Mean Platelet Volume 11.2 fL (7.4-10.4)
[2021-08-08 07:03] LABS: Slide Review Slide Review Perform
--- NOTE | 2021-08-08 09:10 | PC.CHAP ---
Pastoral Care Encounter/Spiritual Assessment Type of Contact [] Declined cosmetics machine operator visit [] Patient/Family/Request visit [] Outpatient visit [] Follow-up visit [] Physician referral [] Code/Alert [x] Routine visit [] Staff referral [] Actively dying [] Patient sleeping [] Family support [] [] Out of room [] Palliative care [] [] Receiving care in room [] Pre-surgical visit [] Trauma [] Long length of stay [x] ICU visit [] Other: Relational/Emotional Strength [] Patient feels connected with others/family/visitors/staff [] Distress [] Loneliness/isolation [] Abandonment Spirituality of Patient [] Person of Theresa [] Attends Druze of their Theresa [] Believes in Prayer [] Reads Bible or Buddhism materials [] There are Spiritual issues to be addressed Laboratory Sampler Interventions [x] Prayer [x] Active listening [x] Non-anxious presence [x] Spiritual/emotional support [] Crisis/trauma care [] Spiritual counseling [] Bereavement support [] Provided bereavement packet [] Provided Bible/devotional materials [] Provided toy/stuffed animal, coloring book to patient or family member [] Provided Communion [] Anointing/[place] [] Salvation [x] Completed spiritual assessment [] Other: Impact on Illness or Injury [] Angry [] Fearful [] Anxious [] Often cries [] Exhaustion [] Unable to work [] Unable to attend confucianism [] Unable to walk/stand [] Unable to read [] Unable to drive [] Unable to eat/drink [] Unable to sleep [] Unable to be with family [] Patient intubated [] Other: Summary visited with patient unable to respond.. prayed for healing Time spent with patient 5 min
[2021-08-08] MEDS: lidocaine 1% 5 ML in potassium chloride premix 100 ML 25 ML IV (09:34)
[2021-08-08] MEDS: vancomycin 1,250 MG/250 ML PIGGYBACK 250 MG IV (09:34)
--- NOTE | 2021-08-08 12:17 | PM.PN ---
Subjective Subjective: Interval history: Urine output 4.5 L overnight. Patient self extubated himself yesterday afternoon. He has not needed any ventricular pacing since early yesterday morning. Patient now in atrial fibrillation with heart rate in 80s with frequent PVCs/aberrantly conducted beats Medications: Reviewed: Yes Medication Review Details: Current Medications Acetaminophen (Acetaminophen 325 Mg Tablet) 650 mg PO Q6H PRN PRN Reason: Mild/Mod Pain Or Temp >/= 101 Atropine Sulfate (Atropine 1 Mg/Ml Sdv 1 Ml) 0.5 mg IVP PRN PRN PRN Reason: Symptomatic bradycardia Bisacodyl (Bisacodyl 5 Mg Tablet) 10 mg PO DAILY PRN; Protocol PRN Reason: Constipation (see protocol) Dextrose (Dextrose 50% Syringe 50 Ml) 25 ml IVP ONCE PRN; Protocol PRN Reason: hypoglycemia protocol Dextrose (Dextrose 50% Syringe 50 Ml) 50 ml IVP PRN PRN; Protocol PRN Reason: hypoglycemia protocol Dextrose (Dextrose 50% Syringe 50 Ml) 25 ml IVP ONCE PRN; Protocol PRN Reason: hypoglycemia protocol Dextrose (Dextrose 50% Syringe 50 Ml) 50 ml IVP PRN PRN; Protocol PRN Reason: hypoglycemia protocol Glucagon (Glucagon 1 Mg/Ml Inj 1 Ml) 1 mg IM ONCE PRN; Protocol PRN Reason: Adult Acute Hypoglycemia Prot Glucagon (Glucagon 1 Mg/Ml Inj 1 Ml) 1 mg IM ONCE PRN; Protocol PRN Reason: Adult Acute Hypoglycemia Prot. Dextrose (D5w) 500 mls @ 100 mls/hr IV ONCE PRN; Protocol PRN Reason: Adult Acute Hypoglycemia Prot Last Infusion: 08/04/21 18:16 Dose: 0 mls/hr Documented by: Norepinephrine Bitartrate 4 mg (/ Dextrose) 254 mls @ 0 mls/hr IV .Q0M [facility]; Protocol Propofol (Diprivan) 1,000 mg in 100 mls @ 0 mls/hr IV .Q0M [facility]; Protocol Last Titration: 08/05/21 15:13 Dose: 0 mcg/kg/min, 0 mls/hr Documented by: Fentanyl 1,000 mcg/ Sodium (Chloride) 100 mls @ 0 mls/hr IV .Q0M [facility]; Protocol Last Titration: 08/07/21 06:39 Dose: 15 mcg/hr, 1.5 mls/hr Documented by: Piperacillin Sod/Tazobactam (Sod 3.375 gm/ Sodium Chloride) 50 mls @ 12.5 mls/hr IV Q8H [facility]; Protocol Last Infusion: 08/07/21 08:02 Dose: Infused Documented by: Norepinephrine Bitartrate 8 mg (/ Dextrose) 508 mls @ 0 mls/hr IV .Q0M [facility]; Protocol Last Titration: 08/07/21 06:22 Dose: 1 mcg/min, 3.81 mls/hr Documented by: Midazolam HCl 100 mg/ Sodium (Chloride) 100 mls @ 0 mls/hr IV .Q0M [facility]; Protocol Last Titration: 08/07/21 06:30 Dose: 0 mg/hr, 0 mls/hr Documented by: Dextrose (D5w) 500 mls @ 100 mls/hr IV ONCE PRN; Protocol PRN Reason: Adult Acute Hypoglycemia Prot Vancomycin/PEG/[place]/Lysine/Water (Vancocin) 1,250 mg in 250 mls @ 250 mls/hr IV Q24H [facility] Last Admin: 08/07/21 08:31 Dose: 250 mls/hr Documented by: Lidocaine HCl 5 ml/ Potassium (Chloride) 105 mls @ 25 mls/hr IV ONCE ONE Stop: 08/07/21 12:14 Last Admin: 08/07/21 08:30 Dose: 25 mls/hr Documented by: Magnesium Hydroxide (Magnesium Hydroxide 30 Ml Udc) 30 ml PO DAILY PRN PRN Reason: CONSTIPATION Methylprednisolone Sodium Succinate (Methylprednisolone Sod Succ 125 Mg/2 Ml Inj) 125 mg IVP Q12H [facility] Last Admin: 08/07/21 08:30 Dose: 125 mg Documented by: Naloxone HCl (Naloxone 0.4 Mg/Ml Sdv) 0.1 mg IVP Q2M PRN PRN Reason: RESPIRATORY RATE < 8/MIN Nitroglycerin (Nitroglycerin 0.4 Mg Sublingual Tablet) 0.4 mg SUBLINGUAL Q5M PRN PRN Reason: CHEST PAIN Ondansetron HCl (Ondansetron 2 Mg/Ml Sdv 2 Ml) 4 mg IVP Q8H PRN PRN Reason: vomiting, or N/V if npo Pantoprazole Sodium (Pantoprazole 40 Mg Sdv) 40 mg IVP Q12H [facility] Last Admin: 08/07/21 03:29 Dose: 40 mg Documented by: Vitals/I&O/Wt Last Vital Signs Temp 98.1 F 08/08/21 07:30 Pulse 79 08/08/21 10:15 Resp 28 H 08/08/21 10:15 BP 132/86 08/08/21 10:15 Pulse Ox 98 08/08/21 10:15 08/07/21 08/08/21 08/08/21 22:59 06:59 14:59 Intake Total 50 / 1278.344 50 / 1328.344 400 / 400 Output Total 1850 / 1850 2620 / 4470 Balance -1800 / -571.656 -2570 / -3141.656 400 / 400 Physical Exam Narrative: EXAM NARRATIVE: GENERAL: Awake alert oriented x3 NECK: No JVD CARDIOVASCULAR SYSTEM: S1-S2 irregular, systolic murmur+ RESPIRATORY SYSTEM: Chest clear to auscultation decreased at mid to basal lung junior ABDOMEN: Soft, nontender and mildly distended. Normal bowel sounds present. EXTREMITIES: trace-1+edema. TOWER CRANE OPERATOR: AAOx3, No FND Data : 08/08/21 03:30 08/08/21 03:30 Micro: Microbiology 08/04/21 12:43 Blood Culture - Preliminary Blood Staphylococcus sp coag neg A&P Assessment and plan (1) Bradycardia: Sinus bradycardia; intermittent high-grade AV block -Likely secondary to hyperkalemia -s/p transvenous temporary pacemaker placement and removed today Status: Acute (2) CHF exacerbation: Normal LV function with moderately decreased right ventricular systolic function and severe TR -Received Lasix Status: Acute Qualifiers: Heart failure type: unspecified Qualified Code(s): I50.9 - Heart failure, unspecified (3) Atrial flutter: History of atrial flutter, was on metoprolol succinate 200 mg daily Cardizem 30 mg p.o. 4 times daily( when he was last seen in office in February 2021). -Unclear if he was taking it at home recently. -Remains in sinus rhythm -Off anticoagulation due to severe anemia Status: Acute Qualifiers: Atrial flutter type: unspecified Qualified Code(s): I48.92 - Unspecified atrial flutter Additional A&P Information Atrial fibrillation: Rate controlled, avoid any AV blockers for now. No anticoagulation given recent history of GI bleed Elevated troponin T: NSTEMI type II in setting of demand ischemia History of lung cancer with recent recurrence on the CAT scan (enlarging spiculated right lower lobe pulmonary mass measuring 3.7 x 3.7 x 6.4 cm; enlarging suprahilar mass surrounding the right upper lobe bronchovascular structure) Acute respiratory failure: Resolved Nonocclusive PE noted in right lower lobe pulmonary artery on recent CT chest: Resolution on most recent CT Severe anemia: Received a unit of packed red blood cells Hyperkalemia: Resolved Hypokalemia: Replaced [place]: Resolved History of thoracic aortic aneurysm s/p endovascular repair. Recent history of GI bleed: Underwent EGD and was found to have ulcer per family; Eliquis was held for 2 weeks and then restarted Thank you for allowing me to participate in patient's care. Please feel free to call with questions or concerns. Attestations Medical Necessity Statement*: As per primary team Time Spent in Patient Care: 16 - 35 minutes Coding Level of Care Code Acute Recreation Program Specialist for g Fwd Diagnoses Bradycardia R00.1 CHF exacerbation I50.9 Heart failure type: unspecified Atrial flutter I48.92 Atrial flutter type: unspecified
[2021-08-08 12:33] LABS: Glucose Point of Care 104 mg/dL (70-110)
[2021-08-08 12:34] LABS: Glucose Point of Care 111 mg/dL (70-110)
[2021-08-08 12:34] LABS: Glucose Point of Care 108 mg/dL (70-110)
--- NOTE | 2021-08-08 14:39 | P.PN_ITS ---
Subjective Subjective: Interval history: Patient was seen this morning, currently on 3 L, alert to person, not to place, not to time, follows commands, complains of weakness, no shortness of breath, he had no bradycardia episodes overnight, no regular events overnight, no nausea, vomiting, chest pain complaints Vitals/I&O/Wt Last Vital Signs Temp 97.9 F 08/08/21 13:00 Pulse 90 08/08/21 13:00 Resp 23 H 08/08/21 13:00 BP 146/95 08/08/21 13:00 Pulse Ox 100 08/08/21 13:00 08/07/21 08/08/21 08/08/21 22:59 06:59 14:59 Intake Total 50 / 1278.344 50 / 1328.344 505 / 505 Output Total 1850 / 1850 2620 / 4470 Balance -1800 / -571.656 -2570 / -3141.656 505 / 505 Physical Exam Const: COMMON NORMALS: no acute distress ORIENTATION/CONSCIOUSNESS: Yes awake and Yes oriented to person; not oriented to place and not oriented to time Resp: COMMON NORMALS: normal respiratory effort, No retractions, No use of accessory muscles and clear to auscultation bilaterally AUSCULTATION: clear to auscultation bilaterally Cardio: COMMON NORMALS: regular rate, regular rhythm, S1 normal heart sound present and S2 normal heart sound present RATE: regular rate RHYTHM: regular rhythm HEART SOUNDS: S1 normal heart sound present and S2 normal heart sound present GI: COMMON NORMALS: Normal to inspection, nondistended, normoactive bowel sounds present, Soft to palpation and non-tender PALPATION: Yes Soft to palpation Extremity: COMMON NORMALS: no pedal edema Neuro: SENSORIUM/ORIENTATION: Yes oriented to person, No oriented to place and No oriented to time Psych: COMMON NORMALS: mental status grossly normal Data : 08/08/21 03:30 08/08/21 03:30 Micro: Microbiology 08/04/21 12:43 Blood Culture - Preliminary Blood Staphylococcus sp coag neg A&P Assessment and plan (1) Cardiogenic shock: Status: Acute (2) Bradycardia: Status: Acute (3) Hyperkalemia: Status: Acute (4) Renal failure: Status: Acute (5) Atrial flutter: Status: Acute (6) Sepsis: Status: Acute (7) Pneumonia: Status: Acute (8) Transaminitis: Status: Acute (9) Elevated troponin: Status: Acute (10) Lactic acidosis: Status: Acute (11) Metabolic acidosis: Status: Acute (12) Anemia: Status: Acute (13) COPD (chronic obstructive pulmonary disease): Status: Acute (14) Acute encephalopathy: Status: Acute (15) Hyperuricemia: Status: Acute (16) History of upper gastrointestinal bleeding: Recent EGD has shown gastritis: Eliquis was kept on hold for 2 weeks and was restarted. Continue Protonix 40 mg IV every 12 hours daily. Status: Acute (17) Liver cirrhosis: Cirrhotic appearing liver. On CT abdomen and pelvis: Status: Acute (18) Severe pulmonary hypertension: Status: Acute Additional A&P Information Acute respiratory failure, pneumonia, fluid overload -As below Shock multifactorial from sepsis, cardiogenic Cardiogenic shock secondary to symptomatic bradycardia, secondary to hyperkale pascual, secondary to acute renal failure Septic shock, pneumonia Sputum culture showing Proteus ESBL, sensitive to Zosyn Status post self extubation 08/07/2021, currently on 3 L, saturating high 90s Plan: -Continue oxygen therapy -Monitor respiratory status closely -PT OT -Speech therapy eval -We will moved to cardiac stepdown unit -advance diet as tolerated -Nutrition eval -Continue broad-spectrum antibiotic therapy, vancomycin, Zosyn Hemoptysis, hemoglobin stable at 5.0, possible diffuse alveolar hemorrhage, quite minimal this morning slight pink frothy discharge from ET tube, status post 1 unit PRBC, continue Solu-Medrol, continue to monitor Bradycardia, sinus, intermittent high-grade AV block, likely secondary to hyperkalemia -Status post transvenous temporary pacemaker placement -No ventricular pacing required since early yesterday -Has evidence of atrial fibrillation -Cardiology on consult Atrial fibrillation, rate controlled, hold off on ED blockers, no anticoagulation due to GI bleed Hyperkalemia, status post 1 session of dialysis -Resolved CHF exacerbation -Resolved -With evidence of fluid overload -Repeat echocardiogram showed normal LV function, moderately decreased right ventricular systolic function -Status post hemodialysis, discontinued HD cath --6 L -Receiving intermittent Lasix Transaminitis: Improving, secondary to shock liver secondary to hypotension. Acute renal failure secondary to ischemic ATN. -Monitor creatinine -Nephrology consult -Remove HD cath Lactic acidosis secondary to acute hypotension and consequently hypoperfusion Elevated troponin likely type II DC Acute metabolic encephalopathy: Multifactorial from hypoglycemia, sepsis, shock, respiratory failure Anemia -Multifactorial from acute renal failure -History of GI bleed -He is having hemoptysis -Some component of DIC -Does have evidence of liver cirrhosis -Elevated INR, elevated fibrinogen, positive D-dimer -Status post 1 unit PRBC -Monitor hemoglobin Possible DIC, secondary to underlying pneumonia, acute respiratory failure, shock liver cirrhosis History of lung cancer, evidence of right lower lobe pulmonary mass measuring 3.7 x 3.7 x 6.4 cm Recent history of nonocclusive embolism in the right lower pulmonary artery, diagnosed 07/10/2021, not seen on repeat CT of the chest 08/04/2021, anticoagulation on hold given anemia as above Severe pulmonary hypertension Moderately dilated right ventricle with moderately decreased right ventricle systolic function. Severe pulmonary hypertension with pulmonary artery pressure estimated at 66 mmHg. Severe biatrial enlargement. Possibly severe tricuspid valve regurgitation. Mild mitral valve regurgitation. Hypoglycemia: Her blood sugars, as per protocol Attestations Medical Necessity Statement*: Patient requires hospitalization due to shock, hemoptysis, acute respiratory failure, atrial fibrillation Coding Level of Care Code Acute Animal Damage Control Agent for g Fwd Diagnoses Cardiogenic shock R57.0 Bradycardia R00.1 Hyperkalemia E87.5 Renal failure N19 Atrial flutter I48.92 Sepsis A41.9 Pneumonia J18.9 Transaminitis R74.01 Elevated troponin R77.8 Lactic acidosis E87.2 Metabolic acidosis E87.2 Anemia D64.9 COPD (chronic obstructive pulmonary disease) J44.9 Acute encephalopathy G93.40 Hyperuricemia E79.0 History of upper gastrointestinal bleeding Z87.19 Liver cirrhosis K74.60 Severe pulmonary hypertension I27.20
[2021-08-08] MEDS: oxyCODONE-APAP 5-325 mg Tablet 1 TAB PO ×2 (15:34→21:31)
[2021-08-08] MEDS: nicotine 21 mg Patch 1 PATCH TRANSDERMA (16:24)
[2021-08-08] MEDS: metoprolol tartrate 25 mg Tablet PO (20:01)
[2021-08-08 20:46] LABS: Glucose Point of Care 125 mg/dL (70-110)
[2021-08-09] VITALS (64 sets, daily range): BP systolic 101–160; BP diastolic 48–120; PULSE 71–139; RESP 10–35; TEMP 36.4–36.6; O2SAT 69–100
[2021-08-09] MEDS: pantoprazole 40 mg SDV IVP ×2 (04:49→16:45)
[2021-08-09] MEDS: piperacillin-tazobactam 3.375 GM in sodium chloride 0.9% (plus) 50 ML IV ×3 (04:49→18:51)
[2021-08-09] MEDS: haloperidol inj 5 mg/mL INJ 1 mL IVP ×3 (06:16→20:30)
--- NOTE | 2021-08-09 06:37 | PC.NURSE ---
Pt remained confused and agitated this shift. Pt impulsive at times, attempting to get out of bed, and threatening to break the windows out and leave. Did not attempt or threaten to harm staff. While this nurse was in another pt's room, pt was found by other nursing staff with Left IJ pulled out, draw sheet and fitted sheet with blood soaked around head and neck area. pressure dressing applied and new peripheral IV placed in L AC.
[2021-08-09 07:15] LABS: Basophils % 0.1 %; Hematocrit 29.6 % (42.0-52.0); Hemoglobin 8.9 g/dL (11.7-16.6); Lymphocytes # 0.4 10^3/uL (0.8-4.8); Lymphocytes % 3.1 %; Mean Corpuscular HGB Conc 30.1 g/dL (30.0-36.0); Mean Corpuscular Hemoglobin 23.8 pg (28.0-34.0); Mean Corpuscular Volume 79.1 fl (80-94); Monocytes # 0.5 10^3/uL (0.2-0.9); Monocytes % 4.7 %; Neutrophils # 10.46 10^3/uL (1.8-7.7); Neutrophils % 91.7 %; Nucleated Red Blood Cells % 0.3 %; Platelet Count 172 10^3/cmm (130-400); Red Blood Count 3.74 10^6/uL (4.1-5.3); White Blood Count 11.4 10^3/uL (4.0-10.0)
[2021-08-09] MEDS: ondansetron 2 mg/ML SDV 2 mL 4 MG IVP (07:19)
[2021-08-09 07:37] LABS: Vancomycin Trough 14.8 ug/mL (10-15)
[2021-08-09 07:55] LABS: NT Pro B Type Natriuretic Pept 4094 pg/mL (0-450); Procalcitonin 0.49 ng/mL (0-0.5)
[2021-08-09 08:00] LABS: Slide Review Slide Review Perform
[2021-08-09 08:07] LABS: Alanine Aminotransferase 391 U/L (0-41); Albumin Level 2.8 g/dL (3.5-5.2); Alkaline Phosphatase 141 IU/L (40-130); Anion Gap 15.9 (5-19); Aspartate Amino Transferase 95 U/L (0-40); Blood Urea Nitrogen 33 mg/dL (8-23); C Reactive Protein 33.8 mg/L (0.0-4.9); Carbon Dioxide 28 mmol/L (22-29); Chloride 98 mmol/L (98-107); Globulin 3.5 g/dL (1.3-4.6); Glucose 129 mg/dL (65-115); Magnesium 1.9 mg/dL (1.7-2.3); Osmolality Calculated 297 mOsm/kg (285-295); Phosphorus 2.3 mg/dL (2.5-4.5); Sodium 139 mmol/L (136-145); Total Bilirubin 2.6 mg/dL (0.15-1.2); Total Protein 6.3 g/dL (6.6-8.7)
[2021-08-09 08:10] LABS: Potassium 2.9 mmol/L (3.5-5.1)
--- NOTE | 2021-08-09 08:15 | PC.OT ---
OT TREATMENT PLAN ADJUSTED TO REFLECT FRIDAY-FRIDAY TREATMENT 5X WEEK. EVALUATING THERAPIST PERMISSION GRANTED.
[2021-08-09] MEDS: vancomycin 1,250 MG/250 ML PIGGYBACK 250 MG IV (08:58)
[2021-08-09] MEDS: nicotine 21 mg Patch 1 PATCH TRANSDERMA (08:58)
[2021-08-09] MEDS: metoprolol tartrate 25 mg Tablet PO ×2 (09:00→11:07)
--- NOTE | 2021-08-09 09:26 | P.PN_ITS ---
Subjective Subjective: Interval history: Urine output 2.9 L yesterday. Patient self extubated himself 08/07/21. TVP removed.He pulled his central line yesterday. Patient now in atrial fibrillation with RVR with frequent PVCs/aberrantly conducted beats. he would like to go home. Medications: Reviewed: Yes Medication Review Details: Current Medications Acetaminophen (Acetaminophen 325 Mg Tablet) 650 mg PO Q6H PRN PRN Reason: Mild/Mod Pain Or Temp >/= 101 Atropine Sulfate (Atropine 1 Mg/Ml Sdv 1 Ml) 0.5 mg IVP PRN PRN PRN Reason: Symptomatic bradycardia Bisacodyl (Bisacodyl 5 Mg Tablet) 10 mg PO DAILY PRN; Protocol PRN Reason: Constipation (see protocol) Dextrose (Dextrose 50% Syringe 50 Ml) 25 ml IVP ONCE PRN; Protocol PRN Reason: hypoglycemia protocol Dextrose (Dextrose 50% Syringe 50 Ml) 50 ml IVP PRN PRN; Protocol PRN Reason: hypoglycemia protocol Dextrose (Dextrose 50% Syringe 50 Ml) 25 ml IVP ONCE PRN; Protocol PRN Reason: hypoglycemia protocol Dextrose (Dextrose 50% Syringe 50 Ml) 50 ml IVP PRN PRN; Protocol PRN Reason: hypoglycemia protocol Glucagon (Glucagon 1 Mg/Ml Inj 1 Ml) 1 mg IM ONCE PRN; Protocol PRN Reason: Adult Acute Hypoglycemia Prot Glucagon (Glucagon 1 Mg/Ml Inj 1 Ml) 1 mg IM ONCE PRN; Protocol PRN Reason: Adult Acute Hypoglycemia Prot. Haloperidol Lactate (Haloperidol Inj 5 Mg/Ml Inj 1 Ml) 0.5 mg IVP Q4H PRN PRN Reason: AGITATION Last Admin: 08/09/21 16:45 Dose: 0.5 mg Documented by: Dextrose (D5w) 500 mls @ 100 mls/hr IV ONCE PRN; Protocol PRN Reason: Adult Acute Hypoglycemia Prot Last Infusion: 08/09/21 08:56 Dose: Infused Documented by: Fentanyl 1,000 mcg/ Sodium (Chloride) 100 mls @ 0 mls/hr IV .Q0M [facility]; Protocol Last Titration: 08/07/21 14:00 Dose: 0 mcg/hr, 0 mls/hr Documented by: Piperacillin Sod/Tazobactam (Sod 3.375 gm/ Sodium Chloride) 50 mls @ 12.5 mls/hr IV Q8H [facility]; Protocol Last Infusion: 08/09/21 16:07 Dose: Infused Documented by: Dextrose (D5w) 500 mls @ 100 mls/hr IV ONCE PRN; Protocol PRN Reason: Adult Acute Hypoglycemia Prot Magnesium Hydroxide (Magnesium Hydroxide 30 Ml Udc) 30 ml PO DAILY PRN PRN Reason: CONSTIPATION Methylprednisolone Sodium Succinate (Methylprednisolone Sod Succ 40 Mg/Ml Inj) 40 mg IVP Q24H [facility] Metoprolol Tartrate (Metoprolol Tartrate 50 Mg Tablet) 50 mg PO BID@0900,2100 [facility] Naloxone HCl (Naloxone 0.4 Mg/Ml Sdv) 0.1 mg IVP Q2M PRN PRN Reason: RESPIRATORY RATE < 8/MIN Nicotine (Nicotine 21 Mg Patch) 1 patch TRANSDERMA DAILY [facility] Last Admin: 08/09/21 08:58 Dose: 1 patch Documented by: Nitroglycerin (Nitroglycerin 0.4 Mg Sublingual Tablet) 0.4 mg SUBLINGUAL Q5M PRN PRN Reason: CHEST PAIN Ondansetron HCl (Ondansetron 2 Mg/Ml Sdv 2 Ml) 4 mg IVP Q8H PRN PRN Reason: vomiting, or N/V if npo Last Admin: 08/09/21 07:19 Dose: 4 mg Documented by: Oxycodone/Acetaminophen (Oxycodone-Apap 5-325 Mg Tablet) 1 tab PO Q12H PRN PRN Reason: MODERATE PAIN Last Admin: 08/09/21 09:38 Dose: 1 tab Documented by: Pantoprazole Sodium (Pantoprazole 40 Mg Sdv) 40 mg IVP Q12H [facility] Last Admin: 08/09/21 16:45 Dose: 40 mg Documented by: Vitals/I&O/Wt Last Vital Signs Temp 97.9 F 08/09/21 07:30 Pulse 80 08/09/21 08:30 Resp 17 08/09/21 08:30 BP 134/78 08/09/21 08:30 Pulse Ox 95 08/09/21 08:30 08/08/21 08/09/21 08/09/21 22:59 06:59 14:59 Intake Total 50 / 555 530 / 1085 50 / 50 Output Total 1400 / 1400 1550 / 2950 Balance -1350 / -845 -1020 / -1865 50 / 50 Intake & Output 11/16/08/08/21 08/09/21 08/10/21 06:59 06:59 06:59 06:59 Intake Total 758.161 / 904.334 2222.344 / 9266.782 4102 / 5995 639.9047 / 459.0909 Output Total 6100 / 6100 4470 / 4470 2950 / 2950 Balance -5341.839 / -5341.839 -3141.656 / -3141.656 -1865 / -0299 145.9975 / 459.0909 Physical Exam Narrative: EXAM NARRATIVE: GENERAL: Awake alert oriented x3 NECK: No JVD CARDIOVASCULAR SYSTEM: S1-S2 irregular, systolic murmur+ RESPIRATORY SYSTEM: Chest clear to auscultation decreased at mid to basal lung junior ABDOMEN: Soft, nontender and non distended. Normal bowel sounds present. EXTREMITIES: no edema. TWISTER OPERATOR: AAOx3, No FND Data : 08/09/21 07:05 08/09/21 07:05 A&P Assessment and plan (1) CHF exacerbation: Normal LV function with moderately decreased right ventricular systolic function and severe TR -well compensated. Status: Acute Qualifiers: Heart failure type: unspecified Qualified Code(s): I50.9 - Heart failure, unspecified (2) Atrial flutter: History of atrial flutter, was on metoprolol succinate 200 mg daily Cardizem 30 mg p.o. 4 times daily( when he was last seen in office in February 2021). -Off anticoagulation due to anemia requiring blood transfusions Status: Acute Qualifiers: Atrial flutter type: unspecified Qualified Code(s): I48.92 - Unspecified atrial flutter Additional A&P Information Atrial fibrillation with RVR : metoprolol tartrate increased to 50 mg BID. No anticoagulation given recent history of GI bleed Bradycardia: resolved, temoparary pacemaker removed. Elevated troponin T: NSTEMI type II in setting of demand ischemia History of lung cancer with recent recurrence on the CAT scan (enlarging spiculated right lower lobe pulmonary mass measuring 3.7 x 3.7 x 6.4 cm; enlarging suprahilar mass surrounding the right upper lobe bronchovascular structure) Acute respiratory failure: Resolved Nonocclusive PE noted in right lower lobe pulmonary artery on recent CT chest: Resolution on most recent CT Severe anemia: Received a unit of packed red blood cells Hypokalemia: being Replaced [place]: Resolved History of thoracic aortic aneurysm s/p endovascular repair. Recent history of GI bleed: Underwent EGD and was found to have ulcer per family; Eliquis was held for 2 weeks and then restarted Thank you for allowing me to participate in patient's care. Please feel free to call with questions or concerns. Attestations Medical Necessity Statement*: As per primary team Time Spent in Patient Care: 16 - 35 minutes Coding Level of Care Code Acute Plugging Machine Operator for g Fwd Diagnoses CHF exacerbation I50.9 Heart failure type: unspecified Atrial flutter I48.92 Atrial flutter type: unspecified
[2021-08-09] MEDS: oxyCODONE-APAP 5-325 mg Tablet 1 TAB PO ×2 (09:38→21:40)
--- NOTE | 2021-08-09 09:54 | PC.SOCIAL ---
IMM update IMM updated with patient. Copy Pg 2 provided. Initialled, dated, timed, and placed in chart.
--- NOTE | 2021-08-09 12:29 | P.PN_ITS ---
Subjective Subjective: Interval history: Patient was seen this morning, he is on room air, overnight he had episodes of agitation, he removed his central line, he is alert to person, to place, not to time, he follows commands, I discussed with him his continued weakness, I recommended snf placement, however he declines, he tells me he wants to go home with his family Vitals/I&O/Wt Last Vital Signs Temp 97.9 F 08/09/21 07:30 Pulse 80 08/09/21 08:30 Resp 18 08/09/21 09:38 BP 134/78 08/09/21 08:30 Pulse Ox 96 08/09/21 09:38 08/08/21 08/09/21 08/09/21 22:59 06:59 14:59 Intake Total 50 / 555 530 / 1085 300 / 300 Output Total 1400 / 1400 1550 / 2950 Balance -1350 / -845 -1020 / -1865 300 / 300 Physical Exam Const: COMMON NORMALS: no acute distress GENERAL APPEARANCE: frail appearing ORIENTATION/CONSCIOUSNESS: Yes awake, Yes oriented to person and Yes oriented to place; not oriented to time Resp: COMMON NORMALS: normal respiratory effort, No retractions, No use of accessory muscles and clear to auscultation bilaterally AUSCULTATION: clear to auscultation bilaterally Cardio: COMMON NORMALS: regular rate, regular rhythm, S1 normal heart sound present and S2 normal heart sound present RATE: regular rate RHYTHM: regular rhythm HEART SOUNDS: S1 normal heart sound present and S2 normal heart sound present GI: COMMON NORMALS: Normal to inspection, nondistended, normoactive bowel sounds present, Soft to palpation and non-tender PALPATION: Yes Soft to p alpation Extremity: COMMON NORMALS: no pedal edema Neuro: SENSORIUM/ORIENTATION: Yes oriented to person, Yes oriented to place and No oriented to time Psych: COMMON NORMALS: mental status grossly normal Data : 08/09/21 07:05 08/09/21 07:05 Micro: Microbiology 08/09/21 10:52 Blood Culture - Preliminary Blood SPECIMEN COLLECTED 08/09/21 10:57 Blood Culture - Preliminary Blood SPECIMEN COLLECTED A&P Assessment and plan (1) Cardiogenic shock: Status: Acute (2) Bradycardia: Status: Acute (3) Hyperkalemia: Status: Acute (4) Renal failure: Status: Acute (5) Atrial flutter: Status: Acute (6) Sepsis: Status: Acute (7) Pneumonia: Status: Acute (8) Transaminitis: Status: Acute (9) Elevated troponin: Status: Acute (10) Lactic acidosis: Status: Acute (11) Metabolic acidosis: Status: Acute (12) Anemia: Status: Acute (13) COPD (chronic obstructive pulmonary disease): Status: Acute (14) Acute encephalopathy: Status: Acute (15) Hyperuricemia: Status: Acute (16) History of upper gastrointestinal bleeding: Recent EGD has shown gastritis: Eliquis was kept on hold for 2 weeks and was restarted. Continue Protonix 40 mg IV every 12 hours daily. Status: Acute (17) Liver cirrhosis: Cirrhotic appearing liver. On CT abdomen and pelvis: Status: Acute (18) Severe pulmonary hypertension: Status: Acute (19) Physical deconditioning: Status: Acute (20) Protein calorie malnutrition: Status: Acute Additional A&P Information Acute respiratory failure, pneumonia, fluid overload -Sputum cultures showing Proteus Mirabella's ESBL -As below -We will moved to general medical floors today Shock multifactorial from sepsis, cardiogenic Cardiogenic shock secondary to symptomatic bradycardia, secondary to hyperkalemia, secondary to acute renal failure Septic shock, pneumonia Sputum culture showing Proteus ESBL, sensitive to Zosyn Status post self extubation 08/07/2021, currently on 3 L, saturating high 90s Plan: -Continue oxygen therapy -Monitor respiratory status closely -PT OT -Speech therapy eval -We will moved to cardiac stepdown unit -advance diet as tolerated -Nutrition eval -Continue broad-spectrum antibiotic therapy, continue Zosyn, stop vancomycin -Blood culture showing coagulase-negative staph, likely contamination, will stop vancomycin Hemoptysis, hemoglobin stable at 8.9, possible diffuse alveolar hemorrhage, quite minimal this morning slight pink frothy discharge from ET tube, status post 1 unit PRBC, de-escalate Solu-Medrol Bradycardia, sinus, intermittent high-grade AV block, likely secondary to hyperkalemia -Status post transvenous temporary pacemaker placement -No ventricular pacing required since early yesterday -Has evidence of atrial fibrillation -Cardiology on consult Atrial fibrillation, rate controlled, hold off on ED blockers, no anticoagulation due to GI bleed Hyperkalemia, status post 1 session of dialysis -Resolved CHF exacerbation -Resolved -With evidence of fluid overload -Repeat echocardiogram showed normal LV function, moderately decreased right ventricular systolic function -Status post hemodialysis, discontinued HD cath --8 L -Receiving intermittent Lasix Transaminitis: Improving, secondary to shock liver secondary to hypotension. Acute renal failure secondary to ischemic ATN. -Monitor creatinine -Nephrology consult -Remove HD cath Lactic acidosis secondary to acute hypotension and consequently hypoperfusion Elevated troponin likely type II [place] Acute metabolic encephalopathy: Multifactorial from hypoglycemia, sepsis, shock, respiratory failure Anemia -Multifactorial from acute renal failure -History of GI bleed -He is having hemoptysis -Some component of DIC -Does have evidence of liver cirrhosis -Elevated INR, elevated fibrinogen, positive D-dimer -Status post 1 unit PRBC -Monitor hemoglobin Possible DIC, secondary to underlying pneumonia, acute respiratory failure, shock liver cirrhosis History of lung cancer, evidence of right lower lobe pulmonary mass measuring 3.7 x 3.7 x 6.4 cm Recent history of nonocclusive embolism in the right lower pulmonary artery, diagnosed 07/10/2021, not seen on repeat CT of the chest 08/04/2021, anticoagulation on hold given anemia as above Severe pulmonary hypertension Moderately dilated right ventricle with moderately decreased right ventricle systolic function. Severe pulmonary hypertension with pulmonary artery pressure estimated at 66 mmHg. Severe biatrial enlargement. Possibly severe tricuspid valve regurgitation. Mild mitral valve regurgitation. Hypoglycemia: Her blood sugars, as per protocol Attestations Medical Necessity Statement*: Patient requires hospitalization for multifactorial shock, bradycardia, pneumonia Coding Level of Care Code Acute [employer] Experimental Mechanic for g Fwd Diagnoses Cardiogenic shock R57.0 Bradycardia R00.1 Hyperkalemia E87.5 Renal failure N19 Atrial flutter I48.92 Sepsis A41.9 Pneumonia J18.9 Transaminitis R74.01 Elevated troponin R77.8 Lactic acidosis E87.2 Metabolic acidosis E87.2 Anemia D64.9 COPD (chronic obstructive pulmonary disease) J44.9 Acute encephalopathy G93.40 Hyperuricemia E79.0 History of upper gastrointestinal bleeding Z87.19 Liver cirrhosis K74.60 Severe pulmonary hypertension I27.20 Physical deconditioning R53.81 Protein calorie malnutrition E46
[2021-08-09 16:59] LABS: Glucose Point of Care 133 mg/dL (70-110)
[2021-08-09] MEDS: metoprolol tartrate 50 mg Tablet PO (20:30)
[2021-08-09 21:04] LABS: Glucose Point of Care 152 mg/dL (70-110)
[2021-08-09] MEDS: nitroglycerin 0.4 mg sublingual Tablet SUBLINGUAL (22:18)
[2021-08-10] VITALS (7 sets, daily range): BP systolic 129–155; BP diastolic 83–92; PULSE 66–122; RESP 14–20; TEMP 36.4–36.7; O2SAT 92–98
[2021-08-10] MEDS: haloperidol inj 5 mg/mL INJ 1 mL IVP (02:30)
[2021-08-10] MEDS: piperacillin-tazobactam 3.375 GM in sodium chloride 0.9% (plus) 50 ML IV ×3 (02:31→20:41)
[2021-08-10] MEDS: acetaminophen 325 mg Tablet 650 MG PO ×3 (02:31→21:43)
[2021-08-10 04:35] LABS: ABG PCO2 42.3 mmHg (35-45); ABG PH Result 7.49 (7.35-7.45); Arterial Blood Gas Hematocrit 26.5 % (42-52); Base Excess ABG 8.1 mmol/L (-2.0-2.0); Blood Gas Allen Test Pos; Blood Gas Sample Type Arterial; HCO3 ABG 32.2 mmol/L (22-26); PO2 ABG 74.9 mmHg (80.0-100.0)
[2021-08-10 04:36] LABS: Blood Gas Sample Site Radial, right
[2021-08-10] MEDS: pantoprazole 40 mg SDV IVP (04:36)
[2021-08-10 06:51] LABS: Glucose Point of Care 118 mg/dL (70-110)
[2021-08-10 06:52] LABS: Basophils % 0.2 %; Hematocrit 27.8 % (42.0-52.0); Hemoglobin 8.3 g/dL (11.7-16.6); Lymphocytes # 0.3 10^3/uL (0.8-4.8); Mean Corpuscular HGB Conc 29.9 g/dL (30.0-36.0); Mean Corpuscular Hemoglobin 23.7 pg (28.0-34.0); Mean Corpuscular Volume 79.4 fl (80-94); Mean Platelet Volume 10.2 fL (7.4-10.4); Monocytes # 0.7 10^3/uL (0.2-0.9); Monocytes % 6.3 %; Neutrophils # 9.75 10^3/uL (1.8-7.7); Neutrophils % 89.8 %; Nucleated Red Blood Cells % 0.3 %; Platelet Count 147 10^3/cmm (130-400); Red Cell Distribution Width 21.9 % (12.1-15.1); White Blood Count 10.9 10^3/uL (4.0-10.0)
--- NOTE | 2021-08-10 07:00 | XR_ITS ---
WS: [id number] Exam: XR chest 1V portable [id number] Date/Time of Exam: 08/10/2021 6:11 AM Reason For Exam: sob Comparison 08/07/2021. There are infiltrates in the upper and lower lobes of the right lung with small amount of fluid in th e minor fissure. Small right basal pleural effusion. The lungs are hyperinflated. Left lung is clear. A stent is noted in the descending thoracic aorta. Cardiomediastinal silhouette is otherwise unremar kable. No pneumothorax. ET tube and enteric tube have been removed since the prior study. XR/XR chest 1V portable [id number] IMPRESSION: 1. Infiltrates in the upper and lower lobes of the right lung suggesting pneumo rosa. 2. Pulmonary hyperinflation which may indicate obstructive lung disease. 3. Trace right-sided pleural effusion.
[2021-08-10 07:06] LABS: INR 1.32 (0.8-1.2)
[2021-08-10 07:08] LABS: Lactate (Lactic Acid level) 1.7 mmol/L (0.5-2.2)
[2021-08-10 07:17] LABS: NT Pro B Type Natriuretic Pept 5424 pg/mL (0-450); Procalcitonin 0.28 ng/mL (0-0.5)
[2021-08-10 07:28] LABS: Alanine Aminotransferase 267 U/L (0-41); Albumin Level 2.6 g/dL (3.5-5.2); Alkaline Phosphatase 137 IU/L (40-130); Anion Gap 16.2 (5-19); Aspartate Amino Transferase 54 U/L (0-40); Blood Urea Nitrogen 30 mg/dL (8-23); C Reactive Protein 19.4 mg/L (0.0-4.9); Calcium 7.6 mg/dL (8.5-10.5); Carbon Dioxide 26 mmol/L (22-29); Chloride 98 mmol/L (98-107); Creatine Phosphokinase 54 U/L (39-308); Globulin 3.3 g/dL (1.3-4.6); Glucose 115 mg/dL (65-115); Magnesium 1.8 mg/dL (1.7-2.3); Osmolality Calculated 291 mOsm/kg (285-295); Phosphorus 2.7 mg/dL (2.5-4.5); Potassium 3.2 mmol/L (3.5-5.1); Sodium 137 mmol/L (136-145); Total Protein 5.9 g/dL (6.6-8.7)
[2021-08-10 08:00] LABS: Slide Review Slide Review Perform
[2021-08-10] MEDS: nicotine 21 mg Patch 1 PATCH TRANSDERMA (08:57)
[2021-08-10] MEDS: metoprolol tartrate 50 mg Tablet PO ×2 (08:58→20:41)
[2021-08-10] MEDS: potassium chloride ER 20 mEq Tablet 40 MEQ PO (10:13)
[2021-08-10 11:48] LABS: Glucose Point of Care 155 mg/dL (70-110)
--- NOTE | 2021-08-10 13:10 | P.PN_ITS ---
Subjective Subjective: Interval history: Patient was seen this morning, he is alert to person, to place, not to time, he follows commands, he is ambulating with help, he is unsteady on his feet, he is adamant about going home, he tells me his son will help him out at home, he does not want to go to a group home, denies any fevers, chills, nausea, vomiting, is on room air. Advised him that he does have significant risk of falls, has protein calorie malnutrition, physical deconditioning, and I would strongly recommend for him to go to a group home. Again patient declines, discussed his increased risk of morbidity and mortality, severe complications, he voiced understanding, all questions answered again declined. Advised patient that we will continue physical therapy, and medically optimize him and hopefully we can discharge him in the next 24 hours, I have strongly advised for home health care, and for increased help at home from family members as patient is adamant about going home Vitals/I&O/Wt Last Vital Signs Temp 98.0 F 08/10/21 11:32 Pulse 88 08/10/21 11:32 Resp 16 08/10/21 11:32 BP 129/83 08/10/21 11:32 Pulse Ox 95 08/10/21 11:32 08/09/21 08/10/21 08/10/21 22:59 06:59 14:59 Intake Total 50 / 459.0909 410 / 869.0909 290 / 290 Output Total 1000 / 1000 980 / 1980 675 / 675 Balance -950 / -540.9091 -570 / -1110.9091 -385 / -385 Physical Exam Const: COMMON NORMALS: no acute distress ORIENTATION/CONSCIOUSNESS: Yes awake, Yes oriented to person and Yes oriented to place; not oriented to time Resp: COMMON NORMALS: normal respiratory effort, No retractions, No use of accessory muscles and clear to auscultation bilaterally AUSCULTATION: clear to auscultation bilaterally Cardio: COMMON NORMALS: regular rate, regular rhythm, S1 normal heart sound present and S2 normal heart sound present RATE: regular rate RHYTHM: regular rhythm HEART SOUNDS: S1 normal heart sound present and S2 normal heart sound present GI: COMMON NORMALS: Normal to inspection, nondistended, normoactive bowel sounds present, Soft to palpation and non-tender PALPATION: Yes Soft to palpation Extremity: COMMON NORMALS: no pedal edema Neuro: SENSORIUM/ORIENTATION: Yes oriented to person, Yes oriented to place and No oriented to time Psych: COMMON NORMALS: mental status grossly normal Data : 08/10/21 05:50 08/10/21 05:50 Micro: Microbiology 08/09/21 10:57 Blood Culture - Preliminary Blood NEGATIVE TO DATE 08/09/21 10:52 Blood Culture - Preliminary Blood NEGATIVE TO DATE 08/08/21 20:10 Gram Stain - Final Sputum - Endotracheal Tube Aspirate Sputum Culture - Preliminary 08/04/21 12:38 Blood Culture - Final Blood NO GROWTH AFTER 5 DAYS 08/04/21 12:43 Blood Culture - Final Blood Staphylococcus sp coag neg A&P Assessment and plan (1) Cardiogenic shock: Status: Acute (2) Bradycardia: Status: Acute (3) Hyperkalemia: Status: Acute (4) Renal failure: Status: Acute (5) Atrial flutter: Status: Acute (6) Sepsis: Status: Acute (7) Pneumonia: Status: Acute (8) Transaminitis: Status: Acute (9) Elevated troponin: Status: Acute (10) Lactic acidosis: Status: Acute (11) Metabolic acidosis: Status: Acute (12) Anemia: Status: Acute (13) COPD (chronic obstructive pulmonary disease): Status: Acute (14) Acute encephalopathy: Status: Acute (15) Hyperuricemia: Status: Acute (16) History of upper gastrointestinal bleeding: Recent EGD has shown gastritis: Eliquis was kept on hold for 2 weeks and was restarted. Continue Protonix 40 mg IV every 12 hours daily. Status: Acute (17) Liver cirrhosis: Cirrhotic appearing liver. On CT abdomen and pelvis: Status: Acute (18) Severe pulmonary hypertension: Status: Acute (19) Physical deconditioning: Status: Acute (20) Protein calorie malnutrition: Status: Acute Additional A&P Information Acute respiratory failure, pneumonia, fluid overload -Sputum cultures showing Proteus Mirabella's ESBL -As below -Currently on general medical floors -Continue PT OT, plan on discharge in the next 24 hours with home health care, Shock multifactorial from sepsis, cardiogenic Cardiogenic shock secondary to symptomatic bradycardia, secondary to hyperkalemia, secondary to acute renal failure Septic shock, pneumonia Sputum culture showing Proteus ESBL, sensitive to Zosyn Status post self extubation 08/07/2021, currently on 3 L, saturating high 90s Plan: -Continue oxygen therapy -Monitor respiratory status closely -PT OT -Speech therapy eval -Currently on general medical floors -advance diet as tolerated -Nutrition eval -Continue Zosyn, total of 7 days, switch to p.o. Augmentin tomorrow -Blood culture showing coagulase-negative staph, likely contamination, repeat blood cultures negative Hemoptysis, hemoglobin stable at 8.9, possible diffuse alveolar hemorrhage, quite minimal this morning slight pink frothy discharge from ET tube, status post 1 unit PRBC, de-escalate Solu-Medrol Bradycardia, sinus, intermittent high-grade AV block, likely secondary to hyperkalemia -Status post transvenous temporary pacemaker placement -No ventricular pacing required since early yesterday -Has evidence of atrial fibrillation -Cardiology on consult Atrial fibrillation, rate controlled, hold off on ED blockers, no anticoagulation due to GI bleed Hyperkalemia, status post 1 session of dialysis -Resolved CHF exacerbation -Resolved -With evidence of fluid overload -Repeat echocardiogram showed normal LV function, moderately decreased right ventricular systolic function -Status post hemodialysis, discontinued HD cath --9.8 L -Receiving intermittent Lasix Transaminitis: Improving, secondary to shock liver secondary to hypotension. Acute renal failure secondary to ischemic ATN. -Monitor creatinine -Nephrology consult -Remove HD cath Lactic acidosis secondary to acute hypotension and consequently hypoperfusion Elevated troponin likely type II [place] Acute metabolic encephalopathy: Multifactorial from hypoglycemia, sepsis, shock, respiratory failure Anemia -Multifactorial from acute renal failure -History of GI bleed -He is having hemoptysis -Some component of DIC -Does have evidence of liver cirrhosis -Elevated INR, elevated fibrinogen, positive D-dimer -Status post 1 unit PRBC -Monitor hemoglobin Possible DIC, secondary to underlying pneumonia, acute respiratory failure, shock liver cirrhosis, resolved History of lung cancer, evidence of right lower lobe pulmonary mass measuring 3.7 x 3.7 x 6.4 cm, follow-up with pulmonary as outpatient Recent history of nonocclusive embolism in the right lower pulmonary artery, diagnosed 07/10/2021, not seen on repeat CT of the chest 08/04/2021, anticoagulation on hold given anemia as above Severe pulmonary hypertension Moderately dilated right ventricle with moderately decreased right ventricle systolic function. Severe pulmonary hypertension with pulmonary artery pressure estimated at 66 mmHg. Severe biatrial enlargement. Possibly severe tricuspid valve regurgitation. Mild mitral valve regurgitation. Hypoglycemia: Her blood sugars, as per protocol Attestations Medical Necessity Statement*: Patient requires hospitalization for cardiogenic shock, septic shock, deconditioning, Coding Level of Care Code Acute Electronic Drafter for Chg Fwd Diagnoses Cardiogenic shock R57.0 Bradycardia R00.1 Hyperkalemia E87.5 Renal failure N19 Atrial flutter I48.92 Sepsis A41.9 Pneumonia J18.9 Transaminitis R74.01 Elevated troponin R77.8 Lactic acidosis E87.2 Metabolic acidosis E87.2 Anemia D64.9 COPD (chronic obstructive pulmonary disease) J44.9 Acute encephalopathy G93.40 Hyperuricemia E79.0 History of upper gastrointestinal bleeding Z87.19 Liver cirrhosis K74.60 Severe pulmonary hypertension I27.20 Physical deconditioning R53.81 Protein calorie malnutrition E46
--- NOTE | 2021-08-10 14:38 | PM.PN ---
Subjective Subjective: Interval history: Patient self extubated himself 08/07/21. TVP removed.He pulled his central line 08/08/11. Patient now in atrial fibrillation with RVR with frequent PVCs/aberrantly conducted beats. he would like to go home. Medications: Reviewed: Yes Medication Review Details: Current Medications Acetaminophen (Acetaminophen 325 Mg Tablet) 650 mg PO Q6H PRN PRN Reason: Mild/Mod Pain Or Temp >/= 101 Atropine Sulfate (Atropine 1 Mg/Ml Sdv 1 Ml) 0.5 mg IVP PRN PRN PRN Reason: Symptomatic bradycardia Bisacodyl (Bisacodyl 5 Mg Tablet) 10 mg PO DAILY PRN; Protocol PRN Reason: Constipation (see protocol) Dextrose (Dextrose 50% Syringe 50 Ml) 25 ml IVP ONCE PRN; Protocol PRN Reason: hypoglycemia protocol Dextrose (Dextrose 50% Syringe 50 Ml) 50 ml IVP PRN PRN; Protocol PRN Reason: hypoglycemia protocol Dextrose (Dextrose 50% Syringe 50 Ml) 25 ml IVP ONCE PRN; Protocol PRN Reason: hypoglycemia protocol Dextrose (Dextrose 50% Syringe 50 Ml) 50 ml IVP PRN PRN; Protocol PRN Reason: hypoglycemia protocol Glucagon (Glucagon 1 Mg/Ml Inj 1 Ml) 1 mg IM ONCE PRN; Protocol PRN Reason: Adult Acute Hypoglycemia Prot Glucagon (Glucagon 1 Mg/Ml Inj 1 Ml) 1 mg IM ONCE PRN; Protocol PRN Reason: Adult Acute Hypoglycemia Prot. Haloperidol Lactate (Haloperidol Inj 5 Mg/Ml Inj 1 Ml) 0.5 mg IVP Q4H PRN PRN Reason: AGITATION Last Admin: 08/09/21 16:45 Dose: 0.5 mg Documented by: Dextrose ([email or web address]) 500 mls @ 100 mls/hr IV ONCE PRN; Protocol PRN Reason: Adult Acute Hypoglycemia Prot Last Infusion: 08/09/21 08:56 Dose: Infused Documented by: Fentanyl 1,000 mcg/ Sodium (Chloride) 100 mls @ 0 mls/hr IV .Q0M [place]; Protocol Last Titration: 08/07/21 14:00 Dose: 0 mcg/hr, 0 mls/hr Documented by: Piperacillin Sod/Tazobactam (Sod 3.375 gm/ Sodium Chloride) 50 mls @ 12.5 mls/hr IV Q8H [place]; Protocol Last Infusion: 08/09/21 16:07 Dose: Infused Documented by: Dextrose ([email or web address]) 500 mls @ 100 mls/hr IV ONCE PRN; Protocol PRN Reason: Adult Acute Hypoglycemia Prot Magnesium Hydroxide (Magnesium Hydroxide 30 Ml Udc) 30 ml PO DAILY PRN PRN Reason: CONSTIPATION Methylprednisolone Sodium Succinate (Methylprednisolone Sod Succ 40 Mg/Ml Inj) 40 mg IVP Q24H [facility] Metoprolol Tartrate (Metoprolol Tartrate 50 Mg Tablet) 50 mg PO BID@0900,2100 [facility] Naloxone HCl (Naloxone 0.4 Mg/Ml Sdv) 0.1 mg IVP Q2M PRN PRN Reason: RESPIRATORY RATE < 8/MIN Nicotine (Nicotine 21 Mg Patch) 1 patch TRANSDERMA DAILY [facility] Last Admin: 08/09/21 08:58 Dose: 1 patch Documented by: Nitroglycerin (Nitroglycerin 0.4 Mg Sublingual Tablet) 0.4 mg SUBLINGUAL Q5M PRN PRN Reason: CHEST PAIN Ondansetron HCl (Ondansetron 2 Mg/Ml Sdv 2 Ml) 4 mg IVP Q8H PRN PRN Reason: vomiting, or N/V if npo Last Admin: 08/09/21 07:19 Dose: 4 mg Documented by: Oxycodone/Acetaminophen (Oxycodone-Apap 5-325 Mg Tablet) 1 tab PO Q12H PRN PRN Reason: MODERATE PAIN Last Admin: 08/09/21 09:38 Dose: 1 tab Documented by: Pantoprazole Sodium (Pantoprazole 40 Mg Sdv) 40 mg IVP Q12H [facility] Last Admin: 08/09/21 16:45 Dose: 40 mg Documented by: Vitals/I&O/Wt Last Vital Signs Temp 98.0 F 08/10/21 14:00 Pulse 84 08/10/21 14:00 Resp 16 08/10/21 14:00 BP 129/83 08/10/21 14:00 Pulse Ox 95 08/10/21 11:32 08/09/21 08/10/21 08/10/21 22:59 06:59 14:59 Intake Total 50 / 459.0909 410 / 869.0909 290 / 290 Output Total 1000 / 1000 980 / 1980 675 / 675 Balance -950 / -540.9091 -570 / -1110.9091 -385 / -385 Physical Exam Narrative: EXAM NARRATIVE: GENERAL: Awake alert oriented x3 NECK: No JVD CARDIOVASCULAR SYSTEM: S1-S2 irregular, LLSB systolic murmur+ RESPIRATORY SYSTEM: Chest clear to auscultation decreased at mid to basal lung junior ABDOMEN: Soft, nontender and non distended. Normal bowel sounds present. EXTREMITIES: no edema. PUNCH MACHINE HAND: AAOx3, No FND Urinary Catheter Management^: Davis: Cath Placed During This Visit: yes, but has since been removed by the nurse Reason for Continuing Indwelling Catheter: Accurate Measurement of Urinary Output in Critically Ill Patients Date Urinary Catheter Removed: 08/10/21 Time Urinary Catheter Discontinued: 13:39 Data : 08/10/21 05:50 08/10/21 05:50 Micro: Microbiology 08/09/21 10:57 Blood Culture - Preliminary Blood NEGATIVE TO DATE 08/09/21 10:52 Blood Culture - Preliminary Blood NEGATIVE TO DATE 08/08/21 20:10 Gram Stain - Final Sputum - Endotracheal Tube Aspirate Sputum Culture - Preliminary 08/04/21 12:38 Blood Culture - Final Blood NO GROWTH AFTER 5 DAYS 08/04/21 12:43 Blood Culture - Final Blood Staphylococcus sp coag neg A&P Assessment and plan (1) CHF exacerbation: Normal LV function with moderately decreased right ventricular systolic function and severe TR -well compensated. Status: Acute Qualifiers: Heart failure type: unspecified Qualified Code(s): I50.9 - Heart failure, unspecified (2) Atrial flutter: History of atrial flutter, was on metoprolol succinate 200 mg daily Cardizem 30 mg p.o. 4 times daily( when he was last seen in office in February 2021). -Hold Off anticoagulation due to anemia requiring blood transfusions and deconditioning and high fall risk Status: Acute Qualifiers: Atrial flutter type: unspecified Qualified Code(s): I48.92 - Unspecified atrial flutter Additional A&P Information Atrial fibrillation with RVR : metoprolol tartrate increased to 50 mg BID. No anticoagulation given recent history of GI bleed Bradycardia: resolved, temoparary pacemaker removed. Elevated troponin T: NSTEMI type II in setting of demand ischemia History of lung cancer with recent recurrence on the CAT scan (enlarging spiculated right lower lobe pulmonary mass measuring 3.7 x 3.7 x 6.4 cm; enlarging suprahilar mass surrounding the right upper lobe bronchovascular structure) Acute respiratory failure: Resolved Nonocclusive PE noted in right lower lobe pulmonary artery on recent CT chest: Resolution on most recent CT Anemia: Received packed red blood cells Hypokalemia: being Replaced [place]: Resolved History of thoracic aortic aneurysm s/p endovascular repair. Recent history of GI bleed: Underwent EGD and was found to have ulcer per family; Eliquis was held for 2 weeks and then restarted Thank you for allowing me to participate in patient's care. Please feel free to call with questions or concerns. Attestations Medical Necessity Statement*: As per primary team Time Spent in Patient Care: 16 - 35 minutes (>than 50% of time spent in counselling and/or direct pt care on unit). Coding Level of Care Code Acute Process Engineering Intern for g Fwd Diagnoses CHF exacerbation I50.9 Heart failure type: unspecified Atrial flutter I48.92 Atrial flutter type: unspecified
[2021-08-10] MEDS: sucralfate 1 gm Tablet PO ×2 (16:01→20:41)
[2021-08-10 16:52] LABS: Glucose Point of Care 85 mg/dL (70-110)
[2021-08-10] MEDS: pantoprazole DR 40 mg Tablet PO (17:42)
[2021-08-10 21:28] LABS: Glucose Point of Care 123 mg/dL (70-110)
--- NOTE | 2021-08-10 23:35 | PC.NURSE ---
Patient refusing to wear [employer]. This nurse educated patient on importance of needing to wear it due to heart related issues.
[2021-08-11] VITALS: BP 157/95; PULSE 90; RESP 18; TEMP 36.4; O2SAT 97
[2021-08-11 04:00] VITALS: BP 139/98; PULSE 72; RESP 20; TEMP 36.2; O2SAT 95
[2021-08-11 04:53] LABS: Basophils % 0.2 %; Eosinophils # 0.1 10^3/uL (0.0-0.8); Eosinophils % 0.6 %; Hematocrit 35.5 % (42.0-52.0); Hemoglobin 10.7 g/dL (11.7-16.6); Lymphocytes # 0.8 10^3/uL (0.8-4.8); Lymphocytes % 7.2 %; Mean Corpuscular HGB Conc 30.1 g/dL (30.0-36.0); Mean Corpuscular Hemoglobin 23.9 pg (28.0-34.0); Mean Corpuscular Volume 79.4 fl (80-94); Mean Platelet Volume 10.9 fL (7.4-10.4); Monocytes # 1.3 10^3/uL (0.2-0.9); Neutrophils # 8.62 10^3/uL (1.8-7.7); Neutrophils % 79.1 %; Nucleated Red Blood Cells % 0.3 %; Platelet Count 173 10^3/cmm (130-400); Red Blood Count 4.47 10^6/uL (4.1-5.3); Red Cell Distribution Width 22.1 % (12.1-15.1); White Blood Count 10.9 10^3/uL (4.0-10.0)
[2021-08-11 05:05] LABS: INR 1.26 (0.8-1.2)
[2021-08-11 05:10] LABS: Lactate (Lactic Acid level) 1.7 mmol/L (0.5-2.2)
[2021-08-11 05:17] LABS: NT Pro B Type Natriuretic Pept 6625 pg/mL (0-450); Procalcitonin 0.22 ng/mL (0-0.5)
[2021-08-11 05:27] LABS: Alanine Aminotransferase 261 U/L (0-41); Albumin Level 3.1 g/dL (3.5-5.2); Alkaline Phosphatase 169 IU/L (40-130); Anion Gap 16.2 (5-19); Aspartate Amino Transferase 47 U/L (0-40); Blood Urea Nitrogen 26 mg/dL (8-23); C Reactive Protein 16.8 mg/L (0.0-4.9); Calcium 7.9 mg/dL (8.5-10.5); Carbon Dioxide 27 mmol/L (22-29); Chloride 97 mmol/L (98-107); Globulin 4.1 g/dL (1.3-4.6); Glucose 83 mg/dL (65-115); Osmolality Calculated 288 mOsm/kg (285-295); Phosphorus 2.3 mg/dL (2.5-4.5); Potassium 3.2 mmol/L (3.5-5.1); Sodium 137 mmol/L (136-145); Total Bilirubin 2.6 mg/dL (0.15-1.2); Total Protein 7.2 g/dL (6.6-8.7)
[2021-08-11 05:29] LABS: Creatine Phosphokinase 44 U/L (39-308)
--- NOTE | 2021-08-11 05:35 | PC.NURSE ---
PATIENT HAS BECOME MORE RESTLESS AND MORE AGITATED THROUGHOUT THE NIGHT. PATIENT HAS BEEN UP MULTIPLE TIMES TO THE BATHROOM WELL BEEN INCONTINENT OF BOTH BOWEL AND BLADDER. PATIENT IS NOW THREATENING TO LEAVE AND HIKE [place] . THIS NURSE ASKED PATIENT ORIENTATION QUESTIONS, HE WAS ORIENTED TO SELF AND BIRTHDAY BUT COULD NOT TELL ME THE MONTH, YEAR, THE CURRENT PRESIDENT OR WHERE HE WAS AT. THIS NURSE TRIED TO REORIENT PATIENT AND HE ARGUED WITH STAFF ABOUT WHERE HE WAS. THIS NURSE ASKED PATIENT IF HE WAS WILLING TO STICK AROUND UNTIL AFTER THE DOCTOR ROUNDS THIS MORNING AND THAT THIS NURSE WAS GIVEN IN SHIFT REPORT THAT HE IS SUPPOSED TO DISCHARGE HOME TODAY AFTER THE DAY SHIFT DOCTOR ROUNDS. PATIENT SEEMED TO CALM AT HEARING THAT BUT WHEN THIS NURSE ASKED IF HE WOULD BE WILLING TO STAY UNTIL THEN HE STATED I CANT PROMISE ANYTHING. PATIENT ALSO STILL REFUSING TO WEAR FLOOR COVERER CORRECTLY, HAS PULLED OFF LEADS AND WILL NOT ALLOW STAFF TO REPLACE THEM, ALSO REFUSED 0500 DOSE OF IV ANTIBIOTICS. THIS NURSE WILL CONTINUE FREQUENT ROUNDING, ENCOURAGE PATIENT TO STAY AND WAIT ON DOCTOR AND REORIENT PATIENT.
[2021-08-11] MEDS: haloperidol inj 5 mg/mL INJ 1 mL IVP (06:08)
[2021-08-11 07:43] VITALS: BP 159/77; PULSE 89; RESP 18; TEMP 35.9; O2SAT 99
[2021-08-11] MEDS: piperacillin-tazobactam 3.375 GM in sodium chloride 0.9% (plus) 50 ML IV (08:22)
[2021-08-11] MEDS: predniSONE 20 mg Tablet 40 MG PO (08:29)
[2021-08-11] MEDS: metoprolol tartrate 50 mg Tablet PO (08:29)
[2021-08-11] MEDS: pantoprazole DR 40 mg Tablet PO (08:30)
[2021-08-11] MEDS: sucralfate 1 gm Tablet PO ×2 (08:30→10:09)
[2021-08-11] MEDS: nicotine 21 mg Patch 1 PATCH TRANSDERMA (08:30)
--- NOTE | 2021-08-11 10:09 | P.PN_ITS ---
Subjective Subjective: Interval history: Patient continues to have the altered mental status. He is waiting for fdc placement. Denies any chest pain. No unusual shortness of breath. Vital signs are stable. Seems to be in atrial fibrillation with a controlled ventricular response rate. Medications: Reviewed: Yes Medication Review Details: Current Medications Acetaminophen (Acetaminophen 325 Mg Tablet) 650 mg PO Q6H PRN PRN Reason: Mild/Mod Pain Or Temp >/= 101 Last Admin: 08/10/21 21:43 Dose: 650 mg Documented by: Atropine Sulfate (Atropine 1 Mg/Ml Sdv 1 Ml) 0.5 mg IVP PRN PRN PRN Reason: Symptomatic bradycardia Bisacodyl (Bisacodyl 5 Mg Tablet) 10 mg PO DAILY PRN; Protocol PRN Reason: Constipation (see protocol) Dextrose (Dextrose 50% Syringe 50 Ml) 25 ml IVP ONCE PRN; Protocol PRN Reason: hypoglycemia protocol Dextrose (Dextrose 50% Syringe 50 Ml) 50 ml IVP PRN PRN; Protocol PRN Reason: hypoglycemia protocol Dextrose (Dextrose 50% Syringe 50 Ml) 25 ml IVP ONCE PRN; Protocol PRN Reason: hypoglycemia protocol Dextrose (Dextrose 50% Syringe 50 Ml) 50 ml IVP PRN PRN; Protocol PRN Reason: hypoglycemia protocol Glucagon (Glucagon 1 Mg/Ml Inj 1 Ml) 1 mg IM ONCE PRN; Protocol PRN Reason: Adult Acute Hypoglycemia Prot Glucagon (Glucagon 1 Mg/Ml Inj 1 Ml) 1 mg IM ONCE PRN; Protocol PRN Reason: Adult Acute Hypoglycemia Prot. Haloperidol Lactate (Haloperidol Inj 5 Mg/Ml Inj 1 Ml) 0.5 mg IVP Q4H PRN PRN Reason: AGITATION Last Admin: 08/11/21 06:08 Dose: 0.5 mg Documented by: Dextrose ([email or web address]) 500 mls @ 100 mls/hr IV ONCE PRN; Protocol PRN Reason: Adult Acute Hypoglycemia Prot Last Infusion: 08/09/21 08:56 Dose: Infused Documented by: Piperacillin Sod/Tazobactam (Sod 3.375 gm/ Sodium Chloride) 50 mls @ 12.5 mls/hr IV Q8H [facility]; Protocol Last Admin: 08/11/21 08:22 Dose: 12.5 mls/hr Documented by: Dextrose ([email or web address]) 500 mls @ 100 mls/hr IV ONCE PRN; Protocol PRN Reason: Adult Acute Hypoglycemia Prot Magnesium Hydroxide (Magnesium Hydroxide 30 Ml Udc) 30 ml PO DAILY PRN PRN Reason: CONSTIPATION Metoprolol Tartrate (Metoprolol Tartrate 50 Mg Tablet) 50 mg PO BID@0900,2100 [facility] Last Admin: 08/11/21 08:29 Dose: 50 mg Documented by: Naloxone HCl (Naloxone 0.4 Mg/Ml Sdv) 0.1 mg IVP Q2M PRN PRN Reason: RESPIRATORY RATE < 8/MIN Nicotine (Nicotine 21 Mg Patch) 1 patch TRANSDERMA DAILY [facility] Last Admin: 08/11/21 08:30 Dose: 1 patch Documented by: Nitroglycerin (Nitroglycerin 0.4 Mg Sublingual Tablet) 0.4 mg SUBLINGUAL Q5M PRN PRN Reason: CHEST PAIN Last Admin: 08/09/21 22:18 Dose: 1 tab Documented by: Ondansetron HCl (Ondansetron 2 Mg/Ml Sdv 2 Ml) 4 mg IVP Q8H PRN PRN Reason: vomiting, or N/V if npo Last Admin: 08/09/21 07:19 Dose: 4 mg Documented by: Oxycodone/Acetaminophen (Oxycodone-Apap 5-325 Mg Tablet) 1 tab PO Q12H PRN PRN Reason: MODERATE PAIN Last Admin: 08/09/21 21:40 Dose: 1 tab Documented by: Pantoprazole Sodium (Pantoprazole Dr 40 Mg Tablet) 40 mg PO BID [facility] Last Admin: 08/11/21 08:30 Dose: 40 mg Documented by: Prednisone (Prednisone 20 Mg Tablet) 40 mg PO DAILY [facility] Last Admin: 08/11/21 08:29 Dose: 40 mg Documented by: Sucralfate (Sucralfate 1 Gm Tablet) 1 gm PO AC&BEDTIME [facility] Last Admin: 08/11/21 08:30 Dose: 1 gm Documented by: Vitals/I&O/Wt Last Vital Signs Temp 96.7 F L 08/11/21 07:43 Pulse 89 08/11/21 07:43 Resp 18 08/11/21 07:43 BP 159/77 08/11/21 07:43 Pulse Ox 99 08/11/21 07:43 08/10/21 08/11/21 08/11/21 22:59 06:59 14:59 Intake Total 50 / 340 290 / 630 240 / 240 Output Total 1025 / 1700 125 / 1825 Balance -975 / -1360 165 / -1195 240 / 240 Physical Exam Narrative: EXAM NARRATIVE: GENERAL: The patient is alert but confused. not in any acute distress. HEENT: Moderate pallor, icterus or lymphadenopathy.Oral cavity: There are no mucous membrane lesions. NECK: Trachea appears to be central. No masses noted. No JVD or thyromegaly appreciated. RESPIRATORY: Chest is symmetrical. No intercostals muscle retraction or any accessory muscle activation. There is no chest wall tenderness. Breath sounds are heard bilaterally. No rales or rhonchi heard. No evidence of any con solidation. BREASTS: Deferred. HEART: The first heart sound is variable . Second heart sound is normal ; no S3 or S4. Systolic murmur grade 3/6 in the aortic area. No diastolic murmurs. No pericardial rub ABDOMEN: No vessel pulsations or distention. No tenderness. No organomegaly appreciated. Bowel sounds are normally heard. : Deferred. RECTAL: Deferred. LYMPHATIC: No lymphadenopathy noted in the neck or groin. EXTREMITIES: 1+ edema both lower extremities. No cyanosis MUSCULOSKELETAL: No acute joint deformities or swelling SKIN: There are no significant rashes or ecchymosis NEUROPSYCHIATRIC: The patient is alert. Appears to be in a good mood. No tremors or rigidity noted. Urinary Catheter Management^: Davis: Cath Placed During This Visit: yes, but has since been removed by the nurse Reason for Continuing Indwelling Catheter: Accurate Measurement of Urinary Output in Critically Ill Patients Date Urinary Catheter Removed: 08/10/21 Time Urinary Catheter Discontinued: 13:39 Data : 08/11/21 04:32 08/11/21 04:32 Other Labs: Laboratory Last Values WBC 10.9 10^3/uL (4.0-10.0) H 08/11/21 04:32 RBC 4.47 10^6/uL (4.1-5.3) 08/11/21 04:32 Hgb 10.7 g/dL (11.7-16.6) L 08/11/21 04:32 Hct 35.5 % (42.0-52.0) L 08/11/21 04:32 MCV 79.4 fl (80-94) L 08/11/21 04:32 MCH 23.9 pg (28.0-34.0) L 08/11/21 04:32 MCHC 30.1 g/dL (30.0-36.0) 08/11/21 04:32 RDW 22.1 % (12.1-15.1) H 08/11/21 04:32 Plt Count 173 10^3/cmm (130-400) 08/11/21 04:32 MPV 10.9 fL (7.4-10.4) H 08/11/21 04:32 Neut % (Auto) 79.1 % 08/11/21 04:32 Lymph % (Auto) 7.2 % 08/11/21 04:32 [place] % (Auto) 12.0 % 08/11/21 04:32 Eos % (Auto) 0.6 % 08/11/21 04:32 Baso % (Auto) 0.2 % 08/11/21 04:32 Neut # (Auto) 8.62 10^3/uL (1.8-7.7) H 08/11/21 04:32 Lymph # (Auto) 0.8 10^3/uL (0.8-4.8) 08/11/21 04:32 [place] # (Auto) 1.3 10^3/uL (0.2-0.9) H 08/11/21 04:32 Eos # (Auto) 0.1 10^3/uL (0.0-0.8) 08/11/21 04:32 Baso # (Auto) 0.0 10^3/uL (0.0-0.1) 08/11/21 04:32 Nucleated RBC % (auto) 0.3 % 08/11/21 04:32 Nucleated RBCs # 0.0 /100WBC 08/11/21 04:32 PT 16.20 SECONDS (12.1-14.9) H 08/11/21 04:32 INR 1.26 (0.8-1.2) H 08/11/21 04:32 APTT 36.6 SECONDS (23.9-36.7) 08/08/21 03:30 Fibrinogen 304 mg/dL (174-498) 08/08/21 03:30 Fibrin Degrad Products Pos, >=40 ug/mL (NEG) H 08/08/21 03:30 D-Dimer 7.12 ug/mIFEU (0-0.59) H 08/08/21 03:30 Specimen Type Arterial 08/10/21 04:23 Sample Site Radial, right 08/10/21 04:23 ABG pH 7.49 (7.35-7.45) H 08/10/21 04:23 ABG pCO2 42.3 mmHg (35-45) 08/10/21 04:23 ABG pO2 74.9 mmHg (80.0-100.0) L 08/10/21 04:23 ABG HCO3 32.2 mmol/L (22-26) H 08/10/21 04:23 ABG O2 Saturation 95.0 08/05/21 09:30 ABG Base Excess 8.1 mmol/L (-2.0-2.0) H 08/10/21 04:23 Ervin Test Pos 08/10/21 04:23 A-a O2 Gradient 77.5 mmHg (5-10) H 08/05/21 09:30 Hematocrit 26.5 % (42-52) L 08/10/21 04:23 Hgb O2 Saturation 92.5 % (95-100) L 08/05/21 09:30 Carboxyhemoglobin 1.5 %THgb (0.4-20.1) 08/05/21 09:30 Methemoglobin 1.0 % (0.4-1.5) 08/05/21 09:30 Total Hemoglobin 6.9 g/dL (14-18) L 08/05/21 09:30 Sodium 134.0 mmol/L (131-143) 08/05/21 09:30 Potassium 4.8 mmol/L (3.5-5.0) 08/05/21 09:30 Glucose 93.0 mg/dL (70-115) 08/05/21 09:30 Ionized Calcium 1.1 mmol/L (1.1-1.4) 08/05/21 09:30 O2 Delivery Device None 08/10/21 04:23 O2 Liters/Min 400.0 % 08/05/21 09:30 FiO2 21.0 % 08/10/21 04:23 Tidal Volume 0.40 08/07/21 04:32 PEEP 8.0 cmH20 08/07/21 04:32 Hosting Engineer ID [email or web address] 08/10/21 04:23 Sodium 137 mmol/L (136-145) 08/11/21 04:32 Potassium 3.2 mmol/L (3.5-5.1) L 08/11/21 04:32 Chloride 97 mmol/L (98-107) L 08/11/21 04:32 Carbon Dioxide 27 mmol/L (22-29) 08/11/21 04:32 Anion Gap 16.2 (5-19) 08/11/21 04:32 BUN 26 mg/dL (8-23) H 08/11/21 04:32 Creatinine 0.6 mg/dL (0.7-1.2) L 08/11/21 04:32 GFR Calculation Not Reportable 08/11/21 04:32 Glucose 83 mg/dL (65-115) 08/11/21 04:32 POC Glucose 123 mg/dL (70-110) H 08/10/21 21:23 Estimat Average Glucose 91 08/06/21 09:43 Hemoglobin A1c 4.8 % (4.0-6.0) 08/06/21 09:43 Calculated Osmolality 288 mOsm/kg (285-295) 08/11/21 04:32 Lactic Acid 3.4 mmol/L (0.5-2.2) H 08/04/21 18:02 Lactic Acid (Sepsis) 2.2 mmol/L (0.5-2.2) 08/04/21 20:19 Lactate 1.7 mmol/L (0.5-2.2) 08/11/21 04:32 Uric Acid 9.4 mg/dL (3.4-7.0) H 08/04/21 12:15 Calcium 7.9 mg/dL (8.5-10.5) L 08/11/21 04:32 Phosphorus 2.3 mg/dL (2.5-4.5) L 08/11/21 04:32 Magnesium 2.0 mg/dL (1.7-2.3) 08/11/21 04:32 Total Bilirubin 2.6 mg/dL (0.15-1.2) H 08/11/21 04:32 AST 47 U/L (0-40) H 08/11/21 04:32 ALT 261 U/L (0-41) H 08/11/21 04:32 Alkaline Phosphatase 169 IU/L (40-130) H 08/11/21 04:32 Creatine Kinase 44 U/L (39-308) 08/11/21 04:32 Troponin T Baseline 127 ng/L (0-15) H* 08/04/21 12:15 Troponin T 120 Minute Cancelled 08/04/21 18:02 Delta Troponin T Cancelled 08/04/21 18:02 Troponin T Hi Sens 6Hr 110.9 ng/L (0-15) H 08/04/21 18:02 Troponin T Hi Sens 6Hr Delta -16.1 ng/L (0-12) L 08/04/21 18:02 C-Reactive Protein 16.8 mg/L (0.0-4.9) H 08/11/21 04:32 NT-Pro-B Natriuret Pep 6625 pg/mL (0-450) H 08/11/21 04:32 Total Protein 7.2 g/dL (6.6-8.7) D 08/11/21 04:32 Albumin 3.1 g/dL (3.5-5.2) L 08/11/21 04:32 Globulin 4.1 g/dL (1.3-4.6) 08/11/21 04:32 Lipase 16 U/L (13-60) 08/04/21 12:15 Procalcitonin 0.22 ng/mL (0-0.5) 08/11/21 04:32 TSH 4.09 uIU/mL (0.27-4.20) 08/05/21 02:50 Free T4 0.90 ng/dL (0.82-1.77) 08/04/21 12:15 Urine Color Cancelled 08/08/21 01:30 Urine Color Yellow (Yellow) 08/08/21 01:30 Urine Appearance Cancelled 08/08/21 01:30 Urine Appearance Clear (CLEAR) 08/08/21 01:30 Urine pH 6.5 (5-7) 08/08/21 01:30 Urine pH Cancelled 08/08/21 01:30 Ur Specific [place] 1.010 (1.005-1.030) 08/08/21 01:30 Ur Specific [place] Cancelled 08/08/21 01:30 Urine Protein Cancelled 08/08/21 01:30 Urine Protein Neg (Negative) 08/08/21 01:30 Urine Glucose (UA) Cancelled 08/08/21 01:30 Urine Glucose (UA) Norm (Normal) 08/08/21 01:30 Urine Ketones Cancelled 08/08/21 01:30 Urine Ketones Negative (Negative) 08/08/21 01:30 Urine Blood 2+ (Negative) H 08/08/21 01:30 Urine Blood Cancelled 08/08/21 01:30 Urine Nitrate Cancelled 08/08/21 01:30 Urine Nitrate Negative (Negative) 08/08/21 01:30 Urine Bilirubin Cancelled 08/08/21 01:30 Urine Bilirubin Neg (Negative) 08/08/21 01:30 Prot Sulfosalicylic Acd Cancelled 08/08/21 01:30 Urine Urobilinogen Cancelled 08/08/21 01:30 Urine Urobilinogen Norm mg/dL (Negative) 08/08/21 01:30 Ur Leukocyte Esterase Cancelled 08/08/21 01:30 Ur Leukocyte Esterase Negative (Negative) 08/08/21 01:30 Urine RBC 10-15 /hpf (0-2) H 08/08/21 01:30 Urine WBC Rare /hpf (0-5) 08/08/21 01:30 Ur Squamous Epith Cells None /hpf (0-5) 08/08/21 01:30 Amorphous Sediment Not Reportable 08/08/21 01:30 Urine Bacteria None /hpf (NONE) 08/08/21 01:30 Urine Mucus 1+ /hpf 08/04/21 17:45 U Random Total Protein 21 mg/dL 08/08/21 01:30 Ur Random Sodium 90 mmol/L 08/08/21 01:30 Urine Creatinine 22 mg/dL (39-259) L 08/08/21 01:30 Urine Creatinine 23 mg/dL (39-259) L 08/08/21 01:30 Protein/Creatinin Ratio 0.95 mg/mg CR 08/08/21 01:30 Vancomycin Trough 14.8 ug/mL (10-15) 08/09/21 07:05 Salicylates < 0.3 mg/dL (3-10) L 08/04/21 12:15 Urine Opiates Screen Positive ng/mL (Negative) H 08/04/21 13:10 Acetaminophen < 5.0 ug/mL (10-30) L 08/04/21 12:15 Ur Barbiturates Screen Negative ng/mL (Negative) 08/04/21 13:10 Ur Phencyclidine Scrn Negative ng/mL (Negative) 08/04/21 13:10 Ur Amphetamines Screen Negative ng/mL (Negative) 08/04/21 13:10 U Benzodiazepines Scrn Positive ng/mL (Negative) H 08/04/21 13:10 Urine Cocaine Screen Negative ng/mL (Negative) 08/04/21 13:10 U Marijuana (THC) Screen Negative ng/mL (Negative) 08/04/21 13:10 Ethyl Alcohol < 10 mg/dL (0-10) 08/04/21 12:15 Hep Bs Antigen Non-reactive (Nonreactive) 08/04/21 12:15 Hep Bs Antibody 3.5 (11.5-1000) L 08/04/21 12:15 Hep B Core Total Ab Non-reactive (Nonreactive) 08/04/21 12:15 SARS-CoV-2 Ag (Rapid) Negative (Negative) 08/04/21 15:10 Blood Type O Positive 08/05/21 04:43 Rho(D) Type Positive 08/05/21 04:43 Antibody Screen Negative 08/05/21 04:43 Crossmatch See Detail 08/05/21 04:43 Micro: Microbiology 08/09/21 10:57 Blood Culture - Preliminary Blood NEGATIVE TO DATE 08/09/21 10:52 Blood Culture - Preliminary Blood NEGATIVE TO DATE 08/08/21 20:10 Gram Stain - Final Sputum - Endotracheal Tube Aspirate Sputum Culture - Preliminary Echo: My impression: 1. Normal left ventricular cavity size, mildly increased left ventricular wall thickness and normal left ventricular systolic function. Left ventricular ejection fraction is estimated at 55 %. No regional wall motion abnormalities. 2. Moderately dilated right ventricle with moderately decreased right ventricle systolic function. 3. Severe pulmonary hypertension with pulmonary artery pressure estimated at 66 mmHg. 4. Severe biatrial enlargement. 5. Possibly severe tricuspid valve regurgitation. 6. Mild mitral valve regurgitation. 7. When compared to previous echocardiogram dated 10/03/2017, right ventricular systolic function seems to have decreased and pulmonary artery pressure has increased. A&P Assessment and plan (1) Atrial flutter: Patient is currently with a controlled ventricular response rate. Because of the GI bleed and the high bleeding risk, the patient is not on any oral anticoagulant at this point. This seems to be appropriate. May continue on the current dose of the AV maria elena blocking agents. Status: Acute Qualifiers: Atrial flutter type: typical Qualified Code(s): I48.3 - Typical atrial flutter (2) Severe pulmonary hypertension: Since the patient's symptoms are stable, may continue on the current medic ations. Status: Acute (3) History of upper gastrointestinal bleeding: No evidence of any recurrence of GI bleed. Continue on the current measures. Status: Acute (4) Acute kidney injury superimposed on CKD: The kidney function currently seems to be stable. The latest BUN/creatinine are 26 and 0.6. We will continue the current measures. Status: Acute (5) Bradycardia: Currently the bradycardia is resolved. At this point, the patient does no t require a permanent pacemaker. Status: Acute (6) Elevated troponin: Most likely related to type II NM. Status: Acute (7) Severe tricuspid regurgitation: Clinically seems to be stable. No evidence of any right heart decompensation at this point. The peripheral edema has markedly improved. May continue on the current measures Status: Acute Additional A&P Information The patient continues remain stable, may be transferred to a long-term care facility. Please make an appointment to be seen by Dr. Machuca in [address] Lee Attestations Medical Necessity Statement*: Disposition as per the primary Coding Level of Care Code Acute [employer] [facility] Fwd History Detailed Exam Detailed Medical Decision Making Moderate Complexity Diagnoses Atrial flutter I48.3 Atrial flutter type: typical Severe pulmonary hypertension I27.20 History of upper gastrointestinal bleeding Z87.19 Acute kidney injury superimposed on CKD N17.9; N18.9 Bradycardia R00.1 Elevated troponin R77.8 Severe tricuspid regurgitation I07.1
[2021-08-11] MEDS: potassium chloride ER 20 mEq Tablet 40 MEQ PO (10:10)
[2021-08-11 11:20] LABS: Glucose Point of Care 133 mg/dL (70-110)
--- NOTE | 2021-08-11 12:40 | PC.SOCIAL ---
IMM Updated Updated pt on IMM. No questioned voiced. Provided pt a copy. Initialed, dated, & timed copy in chart.
--- NOTE | 2021-08-11 14:36 | P.DS_ITS ---
Discharge Providers Date of Admission: 08/04/21 13:45 Date of Discharge: August 11, 2021 Attending Provider at Admission: Lyle Rollins MD Attending Provider at Discharge: Sandeep Lee MD Primary Care Provider: MYA Do Diagnoses at Discharge Discharge Diagnosis (1) Severe pulmonary hypertension: Status: Acute (2) History of upper gastrointestinal bleeding: Status: Acute (3) Acute kidney injury superimposed on CKD: Status: Acute (4) Bradycardia: Status: Acute (5) Atrial flutter: Status: Acute (6) Elevated troponin: Status: Acute Reason for Visit Reason for Visit: RESP DISTRESS; HYPOGLYCEMIA Hospital Course Hospital Course Tyree Lemon is a 81 year old male COPD , hypertension , atrial flutter on Eliquis, recently diagnosed right suprahilar spiculated mass with concern for lung carcinoma. Was brought in with chief complaint of , altered mental status, EMS was called by the family members as the patient was not behaving like himself, EMS on arrival found the blood sugar to be 13, he was given dextrose, and was brought to the hospital, upon arrival in the ER patient was bradycardic, in spite of giving atropine, external pacing was done, Patient was intubated in the ER. He was also requiring Levophed. Acute respiratory failure, pneumonia, fluid overload -Sputum cultures showing Proteus Mirabella's ESBL -As below -Initially intubated, self extubated 08/07/2021, onto room air -Discharge on room air, Augmentin antibiotics, Lasix for diuretic therapy Shock multifactorial from sepsis, cardiogenic Cardiogenic shock secondary to symptomatic bradycardia, secondary to hyperkalemia, secondary to acute renal failure Septic shock, pneumonia Sputum culture showing Proteus ESBL, sensitive to Zosyn Status post self extubation 08/07/2021, de-escalate to room air Hemoptysis, hemoglobin stable at 10.7, possible diffuse alveolar hemorrhage, quite minimal, status post 1 unit PRBC, managed with Solu-Medrol, discharged on a prednisone burst Bradycardia, sinus, intermittent high-grade AV block, likely secondary to hyperkalemia -Status post transvenous temporary pacemaker placement -No ventricular pacing required for a few days in ICU -Cardiology on consult -Managed with beta-nnamdi, no recurrent episodes of AV block, pacemaker removed -Discharged home Atrial fibrillation, rate controlled with metoprolol no anticoagulation due to GI bleed Hyperkalemia, status post 1 session of dialysis -Resolved CHF exacerbation -Resolved -With evidence of fluid overload -Repeat echocardiogram showed normal LV function, moderately decreased right ventricular systolic function -Status post hemodialysis, discontinued HD cath --9.8 L -Discharged on Lasix Transaminitis: Improving, secondary to shock liver secondary to hypotension, advised to avoid alcohol Acute renal failure secondary to ischemic ATN. -Managed through dialysis, HD cath removed -Resolved Lactic acidosis secondary to acute hypotension and consequently hypoperfusion Elevated troponin likely type II MN Acute metabolic encephalopathy: Multifactorial from hypoglycemia, sepsis, shock, respiratory failure Anemia -Multifactorial from acute renal failure -History of GI bleed -He is having hemoptysis -Some component of DIC -Does have evidence of liver cirrhosis -Elevated INR, elevated fibrinogen, positive D-dimer -Status post 1 unit PRBC -Monitor hemoglobin as outpatient Possible DIC, secondary to underlying pneumonia, acute respiratory failure, bethanie ck liver cirrhosis, resolved History of lung cancer, evidence of right lower lobe pulmonary mass measuring 3.7 x 3.7 x 6.4 cm, follow-up with pulmonary as outpatient Recent history of nonocclusive embolism in the right lower pulmonary artery, diagnosed 07/10/2021, not seen on repeat CT of the chest 08/04/2021, anticoagulation on hold given anemia as above, continue to hold anticoagulation on discharge History of GI bleed, anemia, hemoptysis, anticoagulation relatively contraindicated, will discharge on aspirin, statin, discussed risks and benefits of holding anticoagulation, morbidity mortality associated with each option, he voiced understanding, all questions answered agreed to hold anticoagulation for now Severe pulmonary hypertension Moderately dilated right ventricle with moderately decreased right ventricle systolic function. Severe pulmonary hypertension with pulmonary artery pressure estimated at 66 mmHg. Severe biatrial enlargement. Possibly severe tricuspid valve regurgitation. Mild mitral valve regurgitation. Physical Exam Const: COMMON NORMALS: no acute distress and patient oriented x3 Resp: COMMON NORMALS: normal respiratory effort, No retractions, No use of accessory muscles and clear to auscultation bilaterally AUSCULTATION: clear to auscultation bilaterally Cardio: COMMON NORMALS: regular rate, regular rhythm, S1 normal heart sound present and S2 normal heart sound present RATE: regular rate RHYTHM: regular rhythm HEART SOUNDS: S1 normal heart sound present and S2 normal heart sound present GI: COMMON NORMALS: Normal to inspection, nondistended, normoactive bowel sounds present, Soft to palpation and non-tender PALPATION: Yes Soft to palpation Neuro: COMMON NORMALS: patient oriented x3 Psych: COMMON NORMALS: mental status grossly normal Urinary Catheter Management^: Davis: Cath Placed During This Visit: yes, but has since been removed by the nurse Reason for Continuing Indwelling Catheter: Accurate Measurement of Urinary Output in Critically Ill Patients Date Urinary Catheter Removed: 08/10/21 Time Urinary Catheter Discontinued: 13:39 Discharge Data Data Completed and Pending: Completed Studies During Hospitalization Category Date Time Status CT angio chest w abd pel w con Stat Cat Scan 08/04/21 12:[address] cervical spin wo con* 32616 Stat Cat Scan 08/04/21 12:[address] chest wo con 7 1250 Routine Cat Scan 08/06/21 15:[address] head wo con* 7 0450 Stat Cat Scan 08/04/21 12:10 Completed CXRP [XR chest 1V portable [id number]] R outine Exams 08/06/21 08:45 Completed CXRP [XR chest 1V portable 70915] S tat Exams 08/05/21 10:19 Completed XR KUB portable 7 4018 Routine Exams 08/06/21 08:47 Completed XR chest 1V agueda ble 10728 Routine Exams 08/05/21 05:00 Completed XR chest 1V agueda ble 44750 Routine Exams 08/07/21 07:00 Completed XR chest 1V agueda ble 31947 Routine Exams 08/10/21 07:00 Completed XR chest 1V agueda ble 30593 Stat Exams 08/04/21 12:11 Completed XR chest 1V agueda ble 94241 Stat Exams 08/04/21 14:55 Completed CV. echo complete * [id number] Routine Ultrasound 08/05/21 14:17 Completed US abdomen comple te* 37539 Routine Ultrasound 08/05/21 13:57 Completed Pending at discharge Category Date Time Status CILNICAL SCIENTIST request for service Routin e Exams 08/04/21 16:09 Taken Blood Culture Sta t Lab 08/09/21 10:52 Results C Reactive Protei n AM LABS Lab 08/12/21 04:00 Ordered Complete Blood Co unt w/Auto AM LABS Lab 08/12/21 04:00 Ordered Complete Blood Co unt w/Auto AM LABS Lab 08/13/21 04:00 Ordered Comprehensive Met abolic Panel AM LA BS Lab 08/12/21 04:00 Ordered Comprehensive Met abolic Panel AM LA BS Lab 08/13/21 04:00 Ordered Creatine Phosphok inase AM LABS Lab 08/12/21 04:00 Ordered Lactate (Lactic A linda level) AM LABS Lab 08/12/21 04:00 Ordered Magnesium AM LABS Lab 08/12/21 04:00 Ordered NT Pro B Type Vianey riuretic Pept QAM Lab 08/12/21 06:00 Ordered Phosphorus AM LAB S Lab 08/12/21 04:00 Ordered Procalcitonin AM LABS Lab 08/12/21 04:00 Ordered Prothrombin Time INR AM LABS Lab 08/12/21 04:00 Ordered Labs from last 24 hours 08/11/21 08/11/21 08/11/21 10:59 04:32 04:32 WBC 10.9 H RBC 4.47 Hgb 10.7 L Hct 35.5 L MCV 79.4 L MCH 23.9 L MCHC 30.1 RDW 22.1 H Plt Count 173 MPV 10.9 H Neut % (Auto) 79.1 Lymph % (Auto) 7.2 [place] % (Auto) 12.0 Eos % (Auto) 0.6 Baso % (Auto) 0.2 Neut # (Auto) 8.62 H Lymph # (Auto) 0.8 [place] # (Auto) 1.3 H Eos # (Auto) 0.1 Baso # (Auto) 0.0 Nucleated RBC % (a uto) 0.3 Nucleated RBCs # 0.0 PT INR Sodium Potassium Chloride Carbon Dioxide Anion Gap BUN Creatinine GFR Calculation Glucose POC Glucose 133 H Calculated Osmolal ity Lactate Calcium Phosphorus Magnesium Total Bilirubin AST ALT Alkaline Phosphata se Creatine Kinase 44 C-Reactive Protein NT-Pro-B Natriuret Pep 6625 H Total Protein Albumin Globulin Procalcitonin 0.22 08/11/21 08/11/21 08/11/21 04:32 04:32 04:32 WBC RBC Hgb Hct MCV MCH MCHC RDW Plt Count MPV Neut % (Auto) Lymph % (Auto) [place] % (Auto) Eos % (Auto) Baso % (Auto) Neut # (Auto) Lymph # (Auto) [place] # (Auto) Eos # (Auto) Baso # (Auto) Nucleated RBC % (a uto) Nucleated RBCs # PT 16.20 H INR 1.26 H Sodium 137 Potassium 3.2 L Chloride 97 L Carbon Dioxide 27 Anion Gap 16.2 BUN 26 H Creatinine 0.6 L GFR Calculation Not Reportable Glucose 83 POC Glucose Calculated Osmolal ity 288 Lactate 1.7 Calcium 7.9 L Phosphorus 2.3 L Magnesium 2.0 Total Bilirubin 2.6 H AST 47 H ALT 261 H Alkaline Phosphata se 169 H Creatine Kinase C-Reactive Protein 16.8 H NT-Pro-B Natriuret Pep Total Protein 7.2 D Albumin 3.1 L Globulin 4.1 Procalcitonin 08/10/21 08/10/21 21:23 16:23 WBC RBC Hgb Hct MCV MCH MCHC RDW Plt Count MPV Neut % (Auto) Lymph % (Auto) [place] % (Auto) Eos % (Auto) Baso % (Auto) Neut # (Auto) Lymph # (Auto) [place] # (Auto) Eos # (Auto) Baso # (Auto) Nucleated RBC % (a uto) Nucleated RBCs # PT INR Sodium Potassium Chloride Carbon Dioxide Anion Gap BUN Creatinine GFR Calculation Glucose POC Glucose 123 H 85 Calculated Osmolal ity Lactate Calcium Phosphorus Magnesium Total Bilirubin AST ALT Alkaline Phosphata se Creatine Kinase C-Reactive Protein NT-Pro-B Natriuret Pep Total Protein Albumin Globulin Procalcitonin Vitals: Last Vital Signs Temp 96.7 F L 08/11/21 07:43 Pulse 89 08/11/21 07:43 Resp 18 08/11/21 07:43 BP 159/77 08/11/21 07:43 Pulse Ox 99 08/11/21 07:43 Discharge Plan Discharge Patient Disposition: Home Condition: Stable Prescriptions: New metoprolol tartrate 50 mg Tablet 50 mg PO BID@0900,2100 30 Days Qty: 60 RF: 0 prednisone 20 mg Tablet 40 mg PO DAILY 5 Days Qty: 10 RF: 0 sucralfate 1 gram Tablet 1 g PO AC&BEDTIME 30 Days Qty: 60 RF: 0 pantoprazole 40 mg Tablet,Delayed Release (Dr/Ec) 40 mg PO BID 30 Days Qty: 60 RF: 0 nicotine 21 mg/24 hr Patch 24 Hour 1 patch transdermal DAILY 30 Days Qty: 30 RF: 0 albuterol sulfate 90 mcg/actuation HFA aerosol inhaler 1 inh inhalation Q6H PRN (Reason: shortness of breath or wheezing) Qty: 8.5 RF: 0 Advair Diskus 250-50 mcg/dose blister with device 1 inh inhalation BID Qty: 60 RF: 0 aspirin 81 mg capsule 81 mg PO DAILY 30 Days Qty: 30 RF: 0 atorvastatin 40 mg tablet 40 mg PO DAILY 30 Days Qty: 30 RF: 0 Augmentin 875-125 mg tablet 1 tab PO Q12H 3 Days Qty: 6 RF: 0 Continued gabapentin 400 mg capsule 400 mg PO BID RF: 0 Narcan 4 mg/actuation spray,non-aerosol 4 mg intranasal Q3M PRN (Reason: overdose) RF: 0 oxycodone-acetaminophen 10-325 mg tablet 1 tab PO Q4H PRN (Reason: Pain) RF: 0 tramadol 50 mg tablet 50 mg PO BID PRN (Reason: pain) 10 Days Qty: 20 RF: 0 mirtazapine 15 mg tablet 15 mg PO DAILY 30 Days Qty: 30 RF: 0 Changed furosemide 40 mg tablet 40 mg PO DAILY 30 Days Qty: 30 RF: 0 Klor-Con M20 20 mEq tablet,ER particles/crystals 20 meq PO DAILY 30 Days Qty: 30 RF: 0 Discontinued albuterol sulfate 90 mcg/actuation HFA aerosol inhaler 2 puff inhalation Q6H PRN (Reason: Shortness Of Breath) RF: 0 Eliquis 5 mg tablet 5 mg PO BID RF: 0 metoprolol succinate 200 mg capsule,sprinkle,ER 24hr 200 mg PO DAILY RF: 0 potassium chloride 20 mEq/15 mL liquid 20 meq PO DAILY RF: 0 betamethasone acet,sod phos 6 mg/mL suspension 6 mg IM ONCE Qty: 1 RF: 0 diltiazem HCl [Cardizem] 30 mg tablet 30 mg PO QID 30 Days Qty: 120 RF: 0 lisinopril 10 mg tablet 10 mg PO DAILY Qty: 30 RF: 0 Discharge Orders: Discharge Order (Routine); Ordered 08/11/21 Ordered By: Sandeep Lee Referrals: [facility] [Outside] Tracee Ortiz MD [Physician] - 7-10 days NEDRA Rivero FNP [Primary Care Provider] - 1-3 days Mechelle Dubois MD [Physician] - 1 week (lung ca ) Discharge Diet: Cardiac Discharge Activity: Resume usual activity Patient Instructions: Metoprolol (By mouth), Sucralfate (By mouth) (Carafate), Albuterol (By breathing) (ProAir, AccuNeb, Proventil, Proventil..., Prednisone (By mouth), Aspirin (By mouth), Nicotine (Absorbed through the skin), Pantoprazole (By mouth), Fluticasone/Salmeterol (By breathing) (Advair Diskus 100/50, Advair..., How to Stop Smoking (DC), Pulmonary Arterial Hypertension (DC), Encephalopathy (DC), COPD Stoplight, Opioid Safety, Post Pacemaker - Angel Activity Restrictions/Additional Instructions: -Please ambulate with care -Please take Lasix as prescribed -Please follow-up with me in clinic in the next 1 to 3 days -Please stop Eliquis -Please stop smoking -Please do not drink alcohol -Please follow-up with pulmonary in 1 to 2 weeks -Please follow-up with cardiology in 1 to 2 weeks Discharge Attestations Time Spent in Discharge Care*: less than 30 min Quality Metrics Clinical Quality Measures During this hospital stay, did patient experience: None Coding Level of Care Code Acute Chg FW DC note Exam Detailed Diagnoses Severe pulmonary hypertension I27.20 History of upper gastrointestinal bleeding Z87.19 Acute kidney injury superimposed on CKD N17.9; N18.9 Bradycardia R00.1 Atrial flutter I48.92 Elevated troponin R77.8
[2021-08-11 15:21] VITALS: BP 122/66; PULSE 88; RESP 17; TEMP 36.5; O2SAT 98
[2021-08-11 16:06] VITALS: BP 122/66; PULSE 88; RESP 17; TEMP 36.5; O2SAT 98
--- NOTE | 2021-08-13 12:19 | PC.SOCIAL ---
spoke with pts son, Margaret, he reports pts grand daughter takes care of medications, i will have to call her for that info. pt lives with Margaret and Margaret assist with pts everyday care.
== END 2021-08-11 16:07 | disposition home health service (06) | DRG 871 ==
LOC: ER 13:33 → ICU 14:10 → MEDSURG 08-09 15:35
PROVIDERS: Internal Medicine Cardiovascular Disease; Internal Medicine Nephrology; Admitting Provider Internal Medicine; Emergency Provider Emergency Medicine; PCP Nurse Practitioner Family; Visit Provider Family Medicine
PROC: 5A1223Z Performance of Cardiac Pacing, Continuous (ICD-10-PCS; principal; 2021-08-04 16:00)
DX: A41.9 Sepsis, unspecified organism (principal); R65.21 Severe sepsis with septic shock; R57.0 Cardiogenic shock; J18.9 Pneumonia, unspecified organism; D65 Disseminated intravascular coagulation [defibrination syndrome]; J96.00 Acute respiratory failure, unspecified whether with hypoxia or hypercapnia; J96.01 Acute respiratory failure with hypoxia; I21.A1 Myocardial infarction type 2; N17.0 Acute kidney failure with tubular necrosis; G93.41 Metabolic encephalopathy; J44.0 Chronic obstructive pulmonary disease with (acute) lower respiratory infection; C34.31 Malignant neoplasm of lower lobe, right bronchus or lung; R00.1 Bradycardia, unspecified; E11.649 Type 2 diabetes mellitus with hypoglycemia without coma; I48.91 Unspecified atrial fibrillation; G89.4 Chronic pain syndrome; I50.9 Heart failure, unspecified; I11.0 Hypertensive heart disease with heart failure; E55.9 Vitamin D deficiency, unspecified; F17.210 Nicotine dependence, cigarettes, uncomplicated; Z92.3 Personal history of irradiation; Z92.21 Personal history of antineoplastic chemotherapy; E87.5 Hyperkalemia; M19.90 Unspecified osteoarthritis, unspecified site; Z86.711 Personal history of pulmonary embolism; Z79.51 Long term (current) use of inhaled steroids; Z79.82 Long term (current) use of aspirin; Z79.891 Long term (current) use of opiate analgesic; I07.1 Rheumatic tricuspid insufficiency; B96.4 Proteus (mirabilis) (morganii) as the cause of diseases classified elsewhere; B96.20 Unspecified Escherichia coli [E. coli] as the cause of diseases classified elsewhere; I27.20 Pulmonary hypertension, unspecified; D64.9 Anemia, unspecified
CPT/HCPCS: 33210; 36415; 36416; 36430; 36600; 70450; 71045; 71250; 71275; 72125; 74018; 74177; 76700; 80048; 80051; 80053; 80202; 80306; 80307; 81001; 81003; 82330; 82550; 82570; 82575; 82803; 82805; 82962; 83036; 83605; 83690; 83735; 83880; 84100; 84145; 84156; 84300; 84439; 84443; 84484; 84550; 85014; 85018; 85025; 85362; 85378; 85384; 85610; 85730; 86140; 86705; 86706; 86850; 86900; 86920; 87040; 87070; 87077; 87086; 87186; 87205; 87340; 87426; 92610; 93005; 93306; 93976; 94002; 94003; 94799; 96365; 96366; 96367; 97110; 97116; 97162; 97165; 97530; 97535; 99291; 99292; C1752; C1769; C1779; C1894; C9113; J0610; J0692; J1630; J1644; J1720; J1815; J1940; J2250; J2405; J2543; J2704; J2920; J2930; J3010; J3370; J3475; J3480; J3490; J7030; J7050; J7512; P9016; Q3014; Q9967

== ENCOUNTER 2021-09-04 12:51 | Emergency (ER) | payer MEDICARE, SELFPAY ==
--- NOTE | 2021-09-04 13:03 | ECG_ITS ---
[facility] Test Date: 2021-09-04 Pat Name: Tyree Lemon Department: Room: Gender: Male Maori Liaison Adviser: : 1940 Requested By: Erin Jerry Order Number: [id number] Meagan MD: Tracee Ortiz M.D. Measurements Intervals [place] Rate: 127 P: -85 CT: 205 QRS: -47 QRSD: 86 T: 224 QT: 289 QTc: 421 Interpretive Statements Atrial fibrillation with rapid ventricular rate POSSIBLE RIGHT VENTRICULAR CONDUCTION DELAY [RSR (QR) IN V1/V2] LEFT ANTERIOR FASCICULAR BLOCK [QRS AXIS <= -45, QR IN I, RS IN II] ST DEVIATION AND MODERATE T-WAVE ABNORMALITY, CONSIDER INFERIOR ISCHEMIA [-0.1+ mV T-WAVE IN II/aVF] Compared to ECG 08/07/2021 17:50:04 Left anterior fascicular block now present Ventricular premature complex(es) no longer present Aberrant conduction of supraventricular beat(s) no longer present T-wave abnormality still present Possible ischemia still present Electronically Signed On 09-05-2021 0:14:13 DRAPERY HEAD FORMER by Tracee Ortiz M.D. [email or web address]
--- NOTE | 2021-09-04 13:03 | XR_ITS ---
WS: [id number] XR chest 1V portable [id number] REASON FOR EXAM: chest pain FINDINGS: Descending thoracic aortic stent graft. Cardiomegaly. Interstitial linear opacities in the right lower lung more prominent than on the previous examination of 08/10/2021. Right pleural thickening and/or pleural effusion more prominent than on the previous examination. No other significant interval change or new finding. XR/XR chest 1V portable [id number] IMPRESSION: Pleural and lung changes in the lower right hemithorax appear more prominent th an on the previous examination. This may represent continuing evolution of abno rmalities in the right lower chest seen on 08/07/2021.
--- NOTE | 2021-09-04 13:21 | W.ED.CHESTPA ---
HPI - Chest Pain General: Chief Complaint: Chest Pain Stated Complaint: CHEST PAIN/ BACK PAIN/ SIDE PAIN Time Seen by Provider: 09/04/21 13:11 History of Present Illness: HPI narrative: 81-year-old male presents emergency room via EMS. He was walking and tripped and felt a sudden tearing pain radiating into his back and somewhat into his chest and side. Denies any dysuria urgency or frequency has not previously had episodes like this before is not having any chest pain at this time EMS had called ahead there was some ST depression but no ST elevation no rash to give topical nitro aspirin with also recommended IV Lopressor but they do not have that available. On arrival here he has radiation of heart sounds into his abdomen with all pulses moderate-sized pulsatile mass just above the umbilicus. He is still having abdominal pain patient has history of atrial fib flutter and is on Eliquis.. MD complaint: chest pain Pertinent past history: known aortic aneurysm Onset (ago): minute(s) Timing of current episode: episodic Prior episodes: Yes Pain location: left chest Pain radiation: back Severity: moderate Quality: sharp Relieving factors: nothing Exacerbating factors: nothing Associated symptoms: Reports diaphoresis and dyspnea; Deny abdominal pain, fever(s), leg edema, nausea, palpitations, sense of impending doom, syncope or vomiting Treatment prior to arrival: none Review of Systems Const: Reports: diaphoresis; Denies: fever(s) ENMT: Denies: throat pain, ear or mastoid pain, nasal discharge or nasal congestion Card: Denies: palpitations or syncope Resp: Reports: dyspnea GI: Denies: abdominal pain, nausea or vomiting : Denies: flank pain, dysuria, urinary frequency or urinary urgency Skin/Breast: Denies: rash or pruritus [facility] ED PFSH: Medical History Atrial flutter Back pain Chronic joint pain COPD (chronic obstructive pulmonary disease) Dental infection Hypertension Hypertension screen Left shoulder pain Lipoma of forearm Lung cancer Medication management Prostate cancer screening Right hip pain Right-sided chest pain RLL pneumonia Toothache Vitamin D deficiency Surgical History Previous back surgery Social History Smoking and tobacco status: current every day smoker Quit status (tobacco): considering quitting Alcohol intake: never Physical Exam Const: COMMON NORMALS: no acute distress GENERAL APPEARANCE: cooperative and comfortable ORIENTATION/CONSCIOUSNESS: Yes awake, Yes oriented to person, Yes oriented to place and Yes oriented to time HENMT: COMMON NORMALS: normocephalic, atraumatic, hearing grossly normal bilaterally, external ears normal, EAC's normal, TM's normal bilaterally, Normal nasal mucous membranes and turbinates present, moist oral mucous membranes and oropharynx normal HEAD & SCALP: normocephalic and atraumatic NOSE: Normal nasal mucous membranes and turbinates present EXTERNAL EAR: Yes external ears normal EXTERNAL AUDITORY CANAL: EAC's normal TYMPANIC MEMBRANE: TM's normal bilaterally Eye: COMMON NORMALS: Equal, round and reactive pupils present, EOMs intact bilaterally, conjunctivae normal and no scleral icterus CONJUNCTIVA: Yes conjunctivae normal PUPIL: Yes Equal, round and reactive pupils present Neck/C-Spine: COMMON NORMALS: full ROM, no lymphadenopathy, supple and no JVD Lymph: LYMPHATIC: no lymphadenopathy noted and no lymphedema noted Resp: COMMON NORMALS: normal respiratory effort, No retractions, No use of accessory muscles and clear to auscultation bilaterally AUSCULTATION: clear to auscultation bilaterally Cardio: COMMON NORMALS: no JVD, regular rate, regular rhythm and No murmurs present (Cardio) RATE: regular rate RHYTHM: regular rhythm GI: COMMON NORMALS: Soft to palpation and No hepatosplenomegaly present AUSCULTATION: Yes normoactive bowel sounds PALPATION: Yes Soft to palpation, No Tenderness to palpation present (GI), No Guarding due to palpation present (GI) and Yes No hepatosplenomegaly present Extremity: COMMON NORMALS: normal to inspection, capillary refill normal, no clubbing, cyanosis or edema, no calf tenderness and no pedal edema Neuro: SENSORIUM/ORIENTATION: Yes oriented to person, Yes oriented to place and Yes oriented to time Skin: COMMON NORMALS: no rashes or lesions noted GENERAL SKIN EXAM: no rashes or lesions noted Course Vital Signs: Vital signs: Vital Signs Temperature 98.7 F 09/04/21 13:29 Pulse Rate 108 H 09/04/21 15:47 Respiratory Rate 20 H 09/04/21 15:47 Blood Pressure 134/97 09/04/21 15:47 Pulse Oximetry 97 09/04/21 15:47 MDM - Chest Pain MDM Narrative: Medical decision making narrative: Labs and imaging reviewed discussed the patient. He is moderately anemic and has been progressively worsening. Blood pressure is elevated and he is been more short of breath, start him on a prednisone burst of prednisone with taper. Also give him tizanidine to use for his back pain amlodipine for his blood pressure encouraged him to follow-up with his primary care doctor within the next 4 to 5 days. No other focal neurologic deficits were noted on exam at the time of discharge. Lab Data: Labs: Lab Results 09/04/21 09/04/21 09/04/21 13:11 13:11 13:11 WBC 6.0 10^3/uL 10^3/ uL (4.0-10.0) RBC 3.53 10^6/uL L 10 ^6/uL (4.1-5.3) Hgb 8.7 g/dL L g/dL (11.7-16.6) Hct 30.4 % L % (42.0-52.0) MCV 86.1 fl fl (80-94) MCH 24.6 pg L pg (28.0-34.0) MCHC 28.6 g/dL L g/dL (30.0-36.0) RDW 24.5 % H % (12.1-15.1) Plt Count 246 10^3/cmm 10^3 /cmm (130-400) MPV 10.8 fL H fL (7.4-10.4) Neut % (Auto) 73.6 % % Lymph % (Auto) 7.7 % % Navarro % (Auto) 15.1 % % Eos % (Auto) 2.0 % % Baso % (Auto) 0.8 % % Neut # (Auto) 4.40 10^3/uL 10^3 /uL (1.8-7.7) Lymph # (Auto) 0.5 10^3/uL L 10^ 3/uL (0.8-4.8) Navarro # (Auto) 0.9 10^3/uL 10^3/ uL (0.2-0.9) Eos # (Auto) 0.1 10^3/uL 10^3/ uL (0.0-0.8) Baso # (Auto) 0.1 10^3/uL 10^3/ uL (0.0-0.1) Nucleated RBC % (a uto) 0.3 % % Nucleated RBCs # 0.0 /100WBC /100W BC Sodium 140 mmol/L mmol/L (136-145) Potassium 3.9 mmol/L mmol/L (3.5-5.1) Chloride 103 mmol/L mmol/L (98-107) Carbon Dioxide 21 mmol/L L mmol/ L (22-29) Anion Gap 19.9 H (5-19) BUN 22 mg/dL mg/dL (8-23) Creatinine 0.8 mg/dL mg/dL (0.7-1.2) GFR Calculation Not Reportable Glucose 120 mg/dL H mg/dL (65-115) Calculated Osmolal ity 295 mOsm/kg mOsm/ kg (285-295) Calcium 7.5 mg/dL L mg/dL (8.5-10.5) Total Bilirubin 1.1 mg/dL mg/dL (0.15-1.2) AST 12 U/L U/L (0-40) ALT 7 U/L U/L (0-41) Alkaline Phosphata se 153 IU/L H IU/L (40-130) Troponin T Baselin e 109 ng/L H* ng/L (0-15) Troponin T 120 Min morongo Delta Troponin T NT-Pro-B Natriuret Pep 6449 pg/mL H pg/m L (0-450) Total Protein 6.1 g/dL L g/dL (6.6-8.7) Albumin 3.2 g/dL L g/dL (3.5-5.2) Globulin 2.9 g/dL g/dL (1.3-4.6) 09/04/21 14:28 WBC RBC Hgb Hct MCV MCH MCHC RDW Plt Count MPV Neut % (Auto) Lymph % (Auto) Navarro % (Auto) Eos % (Auto) Baso % (Auto) Neut # (Auto) Lymph # (Auto) Navarro # (Auto) Eos # (Auto) Baso # (Auto) Nucleated RBC % (a uto) Nucleated RBCs # Sodium Potassium Chloride Carbon Dioxide Anion Gap BUN Creatinine GFR Calculation Glucose Calculated Osmolal ity Calcium Total Bilirubin AST ALT Alkaline Phosphata se Troponin T Baselin e Troponin T 120 Min morongo 109.1 ng/L H ng/L (0-15) Delta Troponin T 0.1 ABS# ABS# (0-10) NT-Pro-B Natriuret Pep Total Protein Albumin Globulin Discharge Plan Discharge Patient Disposition: Home Clinical Impression: Low back pain, Pulmonary HTN Condition: Stable Prescriptions: New Medrol (Phil) 4 mg tablets,dose pack See Rx Instructions .ROUTE .COMPLEX Qty: 21 RF: 0 tizanidine 4 mg capsule 4 mg PO Q6H PRN (Reason: muscle spasticity) Qty: 20 RF: 0 amlodipine 5 mg tablet 5 mg PO DAILY Qty: 30 RF: 0 No Action gabapentin 400 mg capsule 400 mg PO BEDTIME PRN (Reason: rx filled 07/20/21 30d/s for 400mg bid ) RF: 0 Narcan 4 mg/actuation spray,non-aerosol 4 mg intranasal Q3M PRN (Reason: overdose) RF: 0 oxycodone-acetaminophen 10-325 mg tablet 1 tab PO Q4H PRN (Reason: Pain) RF: 0 tramadol 50 mg tablet 50 mg PO BID PRN (Reason: pain) 10 Days Qty: 20 RF: 0 metoprolol tartrate 50 mg Tablet 50 mg PO BID@0900,2100 30 Days Qty: 60 RF: 0 sucralfate 1 gram Tablet 1 g PO AC&BEDTIME 30 Days Qty: 60 RF: 0 pantoprazole 40 mg Tablet,Delayed Release (Dr/Ec) 40 mg PO BID 30 Days Qty: 60 RF: 0 nicotine 21 mg/24 hr Patch 24 Hour 1 patch transdermal DAILY 30 Days Qty: 30 RF: 0 furosemide 40 mg tablet 40 mg PO DAILY 30 Days Qty: 30 RF: 0 albuterol sulfate 90 mcg/actuation HFA aerosol inhaler 1 inh inhalation Q6H PRN (Reason: shortness of breath or wheezing) Qty: 8.5 RF: 0 fluticasone propion-salmeterol [Advair Diskus] 250-50 mcg/dose blister with device 1 inh inhalation BID Qty: 60 RF: 0 Klor-Con M20 20 mEq tablet,ER particles/crystals 20 meq PO DAILY 30 Days Qty: 30 RF: 0 aspirin 81 mg capsule 81 mg PO DAILY 30 Days Qty: 30 RF: 0 atorvastatin 40 mg tablet 40 mg PO DAILY 30 Days Qty: 30 RF: 0 mirtazapine 15 mg tablet 15 mg PO BEDTIME RF: 0 Discharge Orders: Discharge ED (Routine); Ordered 09/04/21 Ordered By: Vladislav Sandoval Referrals: NEDRA Rivero, REGIONAL RETAIL SALES MANAGER [Primary Care Provider] - Discharge Diet: Usual diet Patient Instructions: Opioid Safety Coding Level of Care Code ED Clipper Operator for Malik Haq
[2021-09-04 13:24] LABS: Basophils # 0.1 10^3/uL (0.0-0.1); Basophils % 0.8 %; Eosinophils # 0.1 10^3/uL (0.0-0.8); Hematocrit 30.4 % (42.0-52.0); Hemoglobin 8.7 g/dL (11.7-16.6); Lymphocytes # 0.5 10^3/uL (0.8-4.8); Lymphocytes % 7.7 %; Mean Corpuscular HGB Conc 28.6 g/dL (30.0-36.0); Mean Corpuscular Hemoglobin 24.6 pg (28.0-34.0); Mean Corpuscular Volume 86.1 fl (80-94); Mean Platelet Volume 10.8 fL (7.4-10.4); Monocytes # 0.9 10^3/uL (0.2-0.9); Monocytes % 15.1 %; Neutrophils % 73.6 %; Nucleated Red Blood Cells % 0.3 %; Platelet Count 246 10^3/cmm (130-400); Red Blood Count 3.53 10^6/uL (4.1-5.3); Red Cell Distribution Width 24.5 % (12.1-15.1)
--- NOTE | 2021-09-04 13:24 | CT_ITS ---
WS: [id number] CTA CHEST ABDOMEN AND PELVIS TECHNIQUE: Noncontrast plus contrast enhanced CTA of the chest, abdomen, and pelvis with coronal and sagittal reformatted images and additional MIP Images. CLINICAL INFORMATION: suspected disecting aorta COMPARISON: August 04, 2021 August 06, 2021 DLP: 2731.[address] scans at [facility] use at least one of these dose optimization techniques: automated e xposure control; mA and/or kV adjustment per patient size (includes targeted exams where dose is matc hed to clinical indication); or iterative reconstruction. FINDINGS: Stable appearing thoracic aortic arch endograft extending into the descending aorta. Stable descendin g thoracic aortic aneurysm. No evidence of intramural hematoma. No evidence of acute aortic dissectio n. Normal caliber descending thoracic aorta. Tortuous calcified abdominal aorta with eccentric mural thrombus. This is unchanged in appearance compared to previous. No evidence of abdominal aortic disse ction. Great vessels are patent. Small right pleural effusion. Patchy infiltrates and atelectasis in the rig ht lower lobe. Right hilar and suprahilar soft tissue thickening unchanged from previous. Narrowing o f the right distal main stem bronchus. Left lung is well aerated. A few small noncalcified nodules in the right lung.Cirrhotic liver. Normal GE junction. Celiac and SMA are patent. Renal arteries are patent. Small amount perihepatic ascites. Calcified prostate. Adrenal glands are normal. No hydronephrosis. Right renal atrophy. Fatty atrophy of the pancreas. Diverticulosis. Lumbar scoliosis. Advanced degenerative changes L4-5. CT/CT angio chest abdomen pelvis IMPRESSION: 1. 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 No evidence of new dissection. No evidence of intramural hem atoma. 2. Normal ascending thoracic aorta. 3. Stable tortuous abdominal aorta with eccentric mural thrombus. 4. No other significant changes compared to August 06, 2021 Notified Vladislav Sandoval DO at 09/04/2021 2:51 PM.
[2021-09-04 13:29] VITALS: BP 112/88; PULSE 144; RESP 16; TEMP 37.1; O2SAT 95; BMI 21.5
[2021-09-04] MEDS: metoprolol tartrate 1 mg/1 mL SDV 5 mL 5 MG IVP (13:55)
[2021-09-04 14:00] VITALS: PULSE 89; O2SAT 96
[2021-09-04 14:00] LABS: Troponin(5th) Baseline 109 ng/L (0-15)
[2021-09-04 14:07] LABS: Alanine Aminotransferase 7 U/L (0-41); Albumin Level 3.2 g/dL (3.5-5.2); Alkaline Phosphatase 153 IU/L (40-130); Anion Gap 19.9 (5-19); Aspartate Amino Transferase 12 U/L (0-40); Blood Urea Nitrogen 22 mg/dL (8-23); Calcium 7.5 mg/dL (8.5-10.5); Carbon Dioxide 21 mmol/L (22-29); Chloride 103 mmol/L (98-107); Globulin 2.9 g/dL (1.3-4.6); Glucose 120 mg/dL (65-115); NT Pro B Type Natriuretic Pept 6449 pg/mL (0-450); Osmolality Calculated 295 mOsm/kg (285-295); Potassium 3.9 mmol/L (3.5-5.1); Sodium 140 mmol/L (136-145); Total Bilirubin 1.1 mg/dL (0.15-1.2); Total Protein 6.1 g/dL (6.6-8.7)
[2021-09-04] MEDS: iohexol 350 mg/mL 100 mL Btl IV (14:17)
[2021-09-04] MEDS: nitroglycerin drip 50 MG/250 ML PREMIX IV (14:19)
[2021-09-04 14:30] VITALS: BP 133/75; PULSE 97; RESP 24; O2SAT 97
[2021-09-04 15:00] VITALS: BP 128/88; PULSE 91; RESP 25; O2SAT 95
[2021-09-04 15:11] LABS: Troponin 5 2HR Delta 0.1 ABS# (0-10)
[2021-09-04 15:15] LABS: Troponin 5 2HR 109.1 ng/L (0-15)
[2021-09-04 15:29] VITALS: RESP 20
[2021-09-04] MEDS: morphine 4 mg/mL SDV 1 mL IVP (15:29)
[2021-09-04] MEDS: dexamethasone 4 mg Tablet 10 MG PO (15:30)
[2021-09-04] MEDS: ondansetron 2 mg/ML SDV 2 mL 4 MG IVP (15:32)
[2021-09-04 15:47] VITALS: BP 134/97; PULSE 108; RESP 20; O2SAT 97
--- NOTE | 2021-09-04 19:03 | ECG_ITS ---
[facility] Test Date: 2021-09-04 Pat Name: Tyree Lemon Department: Room: Gender: Male Sales Development Executive: : 1940 Requested By: Erin Jerry Order Number: [id number] Meagan MD: Tracee Ortiz M.D. Measurements Intervals [place] Rate: 97 P: 82 WA: 222 QRS: -35 QRSD: 85 T: -80 QT: 324 QTc: 413 Interpretive Statements Possible atrial fibrillation with a controlled ventricular response rate. LEFT AXIS DEVIATION [QRS AXIS < -30] ST DEVIATION AND MODERATE T-WAVE ABNORMALITY, CONSIDER INFERIOR ISCHEMIA [-0.1+ mV T-WAVE IN II/aVF] Compared to ECG 09/04/2021 13:32:10 Left-axis deviation now present Left anterior fascicular block no longer present T-wave abnormality still present Possible ischemia still present Electronically Signed On 09-05-2021 22:07:21 KNIFE BLADE POLISHER by Tracee Ortiz M.D. [email or web address]
== END 2021-09-04 16:04 | disposition home or self-care (01) ==
PROVIDERS: Physician Assistant; Emergency Provider Family Medicine; PCP Nurse Practitioner Family
DX: M54.50 Low back pain, unspecified (principal); I27.20 Pulmonary hypertension, unspecified; Z79.82 Long term (current) use of aspirin; J44.9 Chronic obstructive pulmonary disease, unspecified; I10 Essential (primary) hypertension; Z85.118 Personal history of other malignant neoplasm of bronchus and lung; F17.210 Nicotine dependence, cigarettes, uncomplicated
CPT/HCPCS: 71045; 71275; 74174; 80053; 83880; 84484; 85025; 93005; 96365; 96375; 99284; J2270; J2405; J3490; J8540; Q9967

== ENCOUNTER 2021-11-10 04:10 | Emergency (ER) | payer MEDICARE, SELFPAY ==
[2021-11-10 04:13] VITALS: BMI 19.5
--- NOTE | 2021-11-10 04:14 | ED_ITS ---
HPI - General Adult General: Chief complaint: Nausea/Vomiting/Diarrhea Stated complaint: coughing up blood Time Seen by Provider: 11/10/21 04:12 Source: patient, family and EMS Mode of arrival: EMS Limitations: no limitations History of Present Illness: 81-year-old male who has a history of lung cancer he is currently on hospice and states that tonight he had had some hemoptysis. EMS states he had roughly 75 to 100 mL of blood that he had coughed up. Family became concerned and called EMS to have him transported here. Patient here is well-appearing he is comfortable with patient here is normal he is not hypoxic. Associated symptoms: Deny chest pain, headache(s), nausea, rash or vomiting Review of Systems Const: Denies: fever(s), chills, body aches or change in appetite Eyes: Denies: blurry vision or eye discomfort ENMT: Denies: throat pain or dental pain Card: Denies: chest pain Resp: Reports: productive cough and hemoptysis GI: Denies: abdominal pain, nausea, vomiting or diarrhea : Denies: dysuria Musc: Denies: neck pain or back pain Skin/Breast: Denies: rash Neuro: Denies: headache(s) Psych: Denies: depression Mart/Lymph: Denies: easy bruising All/Imm: Denies: urticaria PFSH ED PFSH: Medical History Atrial flutter Back pain Chronic joint pain COPD (chronic obstructive pulmonary disease) Dental infection Hypertension Hypertension screen Left shoulder pain Lipoma of forearm Lung cancer Medication management Prostate cancer screening Right hip pain Right-sided chest pain RLL pneumonia Toothache Vitamin D deficiency Surgical History Previous back surgery Social History Smoking and tobacco status: current every day smoker Quit status (tobacco): considering quitting Alcohol intake: never [facility] - General Adult Medical Decision Making Patient presents here he does have a history of lung cancer and has had hemoptysis since stopped he is well-appearing here blood pressure is normal actually talking to patient he states that he would like to just go back home did speak to hospice nurse patient still on hospice will discharge to home. Discharge Plan Discharge Patient Disposition: Home Clinical Impression: Hemoptysis, Lung cancer Condition: Stable Prescriptions: No Action gabapentin 400 mg capsule 400 mg PO BEDTIME PRN (Reason: rx filled 07/20/21 30d/s for 400mg bid ) 0RF Narcan 4 mg/actuation spray,non-aerosol 4 mg intranasal Q3M PRN (Reason: overdose) 0RF Rx Instructions: spray 1 dose into ONE nostril; alternate nostrils w each dose until help arrives oxycodone-acetaminophen 10-325 mg tablet 1 tab PO Q4H PRN (Reason: Pain) 0RF tramadol 50 mg tablet 50 mg PO BID PRN (Reason: pain) 10 Days Qty: 20 0RF Rx Instructions: stop hyodrocodone furosemide 40 mg tablet 40 mg PO DAILY 30 Days Qty: 30 0RF Rx Instructions: take BID until friday, follow up in clinic, will dose therafter albuterol sulfate 90 mcg/actuation HFA aerosol inhaler 1 inh inhalation Q6H PRN (Reason: shortness of breath or wheezing) Qty: 8.5 0RF fluticasone propion-salmeterol [Advair Diskus] 250-50 mcg/dose blister with device 1 inh inhalation BID Qty: 60 0RF Klor-Con M20 20 mEq tablet,ER particles/crystals 20 meq PO DAILY 30 Days Qty: 30 0RF Medrol (Phil) 4 mg tablets,dose pack See Rx Instructions .ROUTE .COMPLEX Qty: 21 0RF Rx Instructions: orally per package directions tizanidine 4 mg capsule 4 mg PO Q6H PRN (Reason: muscle spasticity) Qty: 20 0RF Rx Instructions: do not exceed 3 doses per 24 hrs mirtazapine 15 mg tablet 15 mg PO BEDTIME 0RF amlodipine 5 mg tablet 5 mg PO DAILY Qty: 30 0RF Discharge Orders: Discharge ED (Routine); Ordered 11/10/21 Ordered By: Miranda Wilson Referrals: NEDRA Rivero, STAVE MACHINE TENDER [Primary Care Provider] - 1-3 days Discharge Diet: Advance as tolerated Discharge Activity: Resume usual activity Patient Instructions: Coughing Up Blood (Hemoptysis) (ED) Coding Level of Care Code ED Fire Pilot for Malik Haq
[2021-11-10 05:12] VITALS: BP 115/68; O2SAT 98
--- NOTE | 2021-11-10 05:18 | PC.NURSE ---
hospice this nurse and tatiana cardoso had multiple conversations with family members, hospice nurse and physician. family was up set because we 'werent doing anything for him' so we educated them and it was deemed that hospice will make a visit today during the day to reinterate what hospice is and does.
== END 2021-11-10 05:18 | disposition home or self-care (01) ==
PROVIDERS: Emergency Provider Emergency Medicine; PCP Nurse Practitioner Family
DX: R04.2 Hemoptysis (principal); C34.90 Malignant neoplasm of unspecified part of unspecified bronchus or lung; J44.9 Chronic obstructive pulmonary disease, unspecified; I10 Essential (primary) hypertension; F17.200 Nicotine dependence, unspecified, uncomplicated; Z79.891 Long term (current) use of opiate analgesic
CPT/HCPCS: 99281